=== PATIENT | female | born 1945 | race Caucasian/White ===

== ENCOUNTER 2018-09-16 12:08 | Inpatient (IN) | payer MEDICARE, BC ==
[2018-09-16] MEDS ORDERED: NS 0.9% 1000 ML** 1,000 ML IV ONE (12:38)
[2018-09-16] MEDS ORDERED: Ondansetron INJ* 2 MG/ML VIAL IV ONE (12:39)
--- NOTE | 2018-09-16 12:47 | ED ---
Adult Trauma - HPI Summary HPI Summary: This patient is a 72 year old F presenting to [facility] with a chief complaint of a fall since this morning. She hit her head on the bathtub. Patient reports dizziness. Patient denies LOC, CP, SOB, and abdominal pain. Patient has a PMHx of vertigo. - History of Current Complaint Chief Complaint: EDDizziness Stated Complaint: POSSIBLE STROKE Time Seen by Provider: 09/16/18 12:31 Hx Obtained From: Patient Mechanism of Injury: Fall Loss of Consciousness: no loss of consciousness Onset/Duration: Started Hours Ago Onset of Pain: Post Accident Pain Intensity: 0 Location: Head Associated Signs & Symptoms: Positive: Other: - Dizziness.. Negative: SOB, Chest Pain, Abdominal Pain, Loss of Consciousness - Allergy/Home Medications Allergies/Adverse Reactions: Allergies Allergy/AdvReac Type Severity Reaction Status Date / Time CHRIST Inhibitors Allergy Coughing Verified 09/16/18 12:57 clarithromycin [From Biaxin] Allergy Diarrhea Verified 09/16/18 12:57 morphine Allergy Hives Verified 09/16/18 12:57 naproxen [From Naprosyn] Allergy Diarrhea Verified 09/16/18 12:57 Penicillins Allergy Anaphylatic Verified 09/16/18 12:57 Shock Home Medications: Home Medications Albuterol HFA INHALER* [Ventolin HFA Inhaler*] 2 puff INH Q4H PRN 09/16/18 [ History Confirmed 09/16/18] Apixaban [Eliquis] 2.5 mg PO BID 09/16/18 [History Confirmed 09/16/18] Aspirin [Cruz Aspirin EC Low Dose 81 MG] 81 mg PO DAILY 09/16/18 [History Confirmed 09/16/18] Cholecalciferol (Vitamin D3) [Vitamin D3] 2,000 unit PO DAILY 09/16/18 [History Confirmed 09/16/18] Citalopram TAB* [CeleXA TAB*] 20 mg PO DAILY 09/16/18 [History Confirmed ] Cyanocobalamin INJ * [Vitamin B12 INJ *] 1,000 mcg IM MONTHLY 09/16/18 [History Confirmed 09/16/18] Donepezil TAB* [Aricept 5 MG TAB*] 10 mg PO DAILY 09/16/18 [History Confirmed ] Fluticasone-Salmeterol 250-50* [Advair Diskus 250-50*] 1 puff INH BID 09/16/18 [ History Confirmed 09/16/18] Insulin Glargine,Hum.rec.anlog [Lantus Solostar] 10 unit SQ BEDTIME 09/16/18 [ History Confirmed 09/16/18] Levothyroxine TAB* [Synthroid TAB*] 112 mcg PO 0800 09/16/18 [History Confirmed 09/16/18] Liraglutide (NF) [Victoza (NF)] 18 mg SUBCUT DAILY 09/16/18 [History Confirmed 09/16/18] Losartan Potassium 100 mg PO DAILY 09/16/18 [History Confirmed 09/16/18] Magnesium Oxide [Magnesium] 250 mg PO TID 09/16/18 [History Confirmed 09/16/18] Metformin ER (NF) [Glucophage ER 750 MG TAB (NF)] 750 mg PO BID 09/16/18 [ History Confirmed 09/16/18] NIFEdipine [Nifedipine ER] 60 mg PO DAILY 09/16/18 [History Confirmed 09/16/18] Niacin 500 mg PO DAILY 09/16/18 [History Confirmed 09/16/18] Omeprazole 20 mg PO BID 09/16/18 [History Confirmed 09/16/18] QUEtiapine TAB* [Seroquel 100 MG *] 100 mg PO BEDTIME 09/16/18 [History Confirmed 09/16/18] Travoprost Z 0.004% OPHTH (NF) [Travatan Z 0.004% OPTH (NF)] 1 drop BOTH EYES BEDTIME 09/16/18 [History Confirmed 09/16/18] Valacyclovir HCl [Valacyclovir] 500 mg PO EVERY OTHER DAY 09/16/18 [History Confirmed 09/16/18] glipiZIDE [Glipizide] 5 mg PO BID 09/16/18 [History Confirmed 09/16/18] prednisoLONE 1% OPHTH.SUSP* [Pred Forte 1%*] 1 drop BOTH EYES DAILY 09/16/18 [ History Confirmed 09/16/18] PMH/Surg Hx/FS Hx/Imm Hx Endocrine/Hematology History: Reports: Hx Diabetes Cardiovascular History: Denies: Hx Coronary Artery Disease GI History: Reports: Other GI Disorders - Hernia Neurological History: Reports: Other Neuro Impairments/Disorders - Stroke Infectious Disease History: No Infectious Disease History: Denies: Traveled Outside the [place] in Last 30 Days - Family History Known Family History: Positive: Hypertension, Diabetes, Other - Stroke - Social History Alcohol Use: Rare Substance Use Type: Reports: None Smoking Status (MU): Former Smoker Review of Systems Negative: Chest Pain Negative: Shortness Of Breath Negative: Abdominal Pain Neurological: Other - Dizziness. Denies LOC. All Other Systems Reviewed And Are Negative: Yes Physical Exam - Summary Physical Exam Summary: Appearance: Well appearing, no pain distress Skin: warm, dry, reflects adequate perfusion Head/face: normal Eyes: EOMI, LORRAINE ENT: normal Neck: supple, non-tender Respiratory: CTA, breath sounds present Cardiovascular: RRR, pulses symmetrical Abdomen: non-tender, soft Musculoskeletal: normal, Neuro: A&Ox3 Triage Information Reviewed: Yes Vital Signs On Initial Exam: Initial Vitals Temp Pulse Resp BP Pulse Ox 98.0 F 78 15 175/100 97 09/16/18 12:12 09/16/18 12:12 09/16/18 12:12 09/16/18 12:12 09/16/18 12:12 Vital Signs Reviewed: Yes Diagnostics - Vital Signs Vital Signs Temp Pulse Resp BP Pulse Ox 09/16/18 12:17 77 20 175/100 96 09/16/18 12:13 12 09/16/18 12:12 98.0 F 78 15 175/100 97 - Laboratory Result Diagrams: 09/16/18 12:46 09/16/18 12:46 Lab Statement: Any lab studies that have been ordered have been reviewed, and results considered in the medical decision making process. - Radiology Chest X-Ray Radiology Interpretation Completed By: Radiologist Summary of Radiographic Findings: 14:21. NO ACTIVE CARDIOPULMONARY DISEASE IS NOTED. ED Physician has reviewed this imaging report. - CT Cervical Spine CT CT Interpretation Completed By: Radiologist Summary of CT Findings: 13:44. No fracture is noted. Degenerative changes of the atlantoaxial joint, at C5-C6 and C6-C7 is noted. ED Physician has reviewed this imaging report. Brain CT CT Interpretation Completed By: Radiologist Summary of CT Findings: 13:41. Old lacunar infarct right basal ganglia. No intracranial mass or hemorrhage is noted. ED Physician has reviewed this imaging report. - EKG 12:55 Cardiac Rate: NL - 76 BPM EKG Rhythm: Sinus Rhythm Summary of EKG Findings: No acute changes. Adult Trauma Course/Dx - Diagnoses Differential Diagnosis/HQI/PQRI: Positive: Other - vertigo/dizziness/dehydration Provider Diagnoses: Dizziness - Physician Notifications Discussed Care Of Patient With: Moshe Ann - Hospitalist Time Discussed With Above Provider: 14:55 Instructed by Provider To: Admit As Inpatient Discharge - Sign-Out/Discharge Documenting (check all that apply): Patient Departure - Admit - Discharge Plan Condition: Stable Disposition: ADMITTED TO [facility] Referrals: Marisa Nash MD [Primary Care Provider] - - Billing Disposition and Condition Condition: STABLE Disposition: Admitted to [facility] - Attestation Statements Document Initiated by Scribe: Yes Documenting Scribe: Dash Mendosa Provider For Whom Scribe is Documenting (Include Credential): Reymundo Damon MD Scribe Attestation: Dash Mcgarry, scribed for Reymundo Damon MD on 09/16/18 at 1641. Scribe Documentation Reviewed: Yes Provider Attestation: The documentation as recorded by the Dash norwood accurately reflects the service I personally performed and the decisions made by Reymundo seaman MD Status of Scribe Document: Viewed
[2018-09-16 13:11] LABS: ABS Basophils 0.1 10^3/ul (0-0.2); ABS Eosinophils 0.4 10^3/ul (0-0.6); ABS Lymphocytes 2.5 10^3/ul (1.0-4.8); ABS Monocytes 0.6 10^3/ul (0-0.8); ABS Neutrophils 6.6 10^3/ul (1.5-7.7); ABS Nucleated RBC 0 10^3/ul; Eosinophil % 4.1 %; Hematocrit 40 % (35-47); Hemoglobin 13.1 g/dl (12.0-16.0); Lymphocyte % 24.9 %; Mean Corpuscular HGB Conc 33 g/dl (31-36); Mean Corpuscular Hemoglobin 29 pg (27-31); Mean Corpuscular Volume 88 fL (80-97); Mean Platelet Volume 8.5 fL (7.4-10.4); Nucleated Red Blood Cells % 0; Platelet Count 221 10^3/ul (150-450); Red Blood Count 4.58 10^6/ul (4.00-5.40); Red Cell Distribution Width 15 % (10.5-15); White Blood Count 10.2 10^3/ul (3.5-10.8)
[2018-09-16 13:12] LABS: Activated Partial Thrombo Time 39.3 seconds (26.0-36.3); INR 0.95 (0.77-1.02)
[2018-09-16 13:22] LABS: Albumin 4.2 g/dL (3.2-5.2); Albumin/Globulin Ratio 1.4 (1-3); Calcium 9.8 mg/dL (8.6-10.3); EGFR African American 66.1 (>60); EGFR Non-African American 54.7 (>60); Potassium 4.5 mmol/L (3.5-5.0); Total Bilirubin 0.4 mg/dL (0.2-1.0); Total Protein 7.2 g/dL (6.4-8.9)
[2018-09-16 13:23] LABS: Troponin I 0.01 ng/mL (<0.04)
[2018-09-16] MEDS ORDERED: Ondansetron INJ* 2 MG/ML VIAL IV PRN (16:29)
[2018-09-16] MEDS ORDERED: Aspirin 81 mg CHEW TAB* 81 MG TAB.CHEW PO ONE (16:29)
[2018-09-16] MEDS ORDERED: Dextrose 50% Syringe 50 ML* 25 GM/50 ML SYRINGE IV PUSH PRN (16:29)
[2018-09-16 16:40] LABS: Urine Appearance Clear; Urine Bacteria Absent (Absent); Urine Bilirubin Negative (Negative); Urine Blood 1+ (Negative); Urine Color Straw; Urine Glucose 1+(50 mg/dL) (Negative); Urine Ketones Negative (Negative); Urine Nitrite Negative (Negative); Urine Protein 2+(100 mg/dL) (Negative); Urine Red Blood Cell Trace(0-2/hpf) (Absent); Urine Specific Gravity 1.005 (1.010-1.030); Urine Squamous Epithelial Cell Present (Absent); Urine Urobilinogen Negative (Negative); Urine White Blood Cell Trace(0-5/hpf) (Absent)
[2018-09-16] MEDS ORDERED: Iodixanol* (CONTRAST) 320 MG/ML 100 ML SDV IV ONE (16:52)
[2018-09-16] MEDS ORDERED: Albuterol HFA INHALER* 8 gm MDI INH PRN (16:54)
[2018-09-16 19:43] LABS: Influenza A Molecular NEGATIVE (Negative); Influenza B Molecular NEGATIVE (Negative)
[2018-09-16] MEDS ORDERED: hydrALAZINE IV* 20 MG/ML VIAL IV SLOW PU PRN (20:14)
[2018-09-16] MEDS ORDERED: Apixaban* 2.5 MG TAB PO SCH (21:00)
--- NOTE | 2018-09-16 21:16 | HP ---
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 In addition, she has mild, less than 60%, stenosis of the proximal ICAs bilaterally, 2 mm nodular density in the left lung apex which is nonspecific. Once this CTA was resulted, Dr. Shabazz was updated. Dr. Shabazz discussed the case with telemedicine stroke team. It has been decided that the patient does not need transfer to high level of care. The patient will be admitted to [facility] for further observation. The patient will be on strict neuro checks q.2 hours to monitor for deterioration. The patient will not get her nighttime dose of Eliquis, but we will restart in the morning per Dr. Shabazz. Currently, the patient's neuro status is unchanged from previously. SUYAPA QUEZADA, NAVI [id number]/[facility] #: [id number] PAULINE
--- NOTE | 2018-09-16 21:25 | HP ---
ADDENDUM NOW INCLUDED ON THIS REPORT CC: Dr. Nash; Dr. Shabazz * HISTORY AND PHYSICAL: DATE OF ADMISSION: 09/16/18 PRIMARY CARE PROVIDER: Dr. Nash in [place], [place] with [facility]. OTHER PROVIDER: Dr. Shabazz, Neurology. ATTENDING PHYSICIAN: Dr. Ann * (dictated by Suyapa Quezada, CAUL DRESSER) CHIEF COMPLAINT: Dizziness. HISTORY OF PRESENT ILLNESS: Ms. Duran is a 72-year-old female with a past medical history significant for CVA, diabetes, sleep apnea, PE, DVT, hypertension; who presented to the emergency department today via EMS with complaints of dizziness. The patient reports she woke in the morning and was severely dizzy, was unable to get her bearings, had difficulty walking to the bathroom. Family made her to the bathroom and had a bowel movement, after which when she was attempting to clean herself, her dizziness caused her to lose her balance and fall and hit her head. The patient had no loss of consciousness. She remembers all events leading up to the fall and after. The patient reports after the fall she was lying on the floor and attempted to crawl to the bed. She reports this took her quite some time as she was severe dizzy, finally was able to get herself to the bed where she laid down and waited for her to come home. reports that when he came home, he found his lying in bed saying something was wrong and she needed help. She had to urinate, therefore, he helped her ambulate to the bathroom which she reports was very difficult as she was leaning to the right side and was very dizzy. The patient's then called EMS. She was brought here to the emergency room. While in the emergency room, the patient was evaluated by the ER physician, given Lefran as she was experiencing nausea and vomiting secondary to dizziness. She also received IV fluids in the form of normal saline, and a brain CT was obtained which revealed an old lacunar infarct at basal ganglia and no intracranial mass or hemorrhage noted. She also had a chest x-ray, which was unremarkable and a cervical spine CT due to trauma, which revealed no fracture noted, but did reveal degenerative changes of the atlantoaxial joint at C5 through C6 and C6 through C7. Due to the patient's persistent dizziness in conjunction with her history, the hospitalist team were asked to evaluate for admission. On evaluation of the patient, it was noted that the patient is significantly hypertensive occasionally with at times as high as 191/109. The patient reports she is severely dizzy and cannot identify any aggravating or any alleviating factors. This dizziness is also associated with nausea and vomiting as she vomited x1. The patient's neurological exam was also significant for left lateral gaze palsy, right arm drift, left leg drift. Otherwise, the patient's exam was unremarkable. She denied denies chest pain, palpitations, shortness of breath, abdominal pain, urinary symptoms, fever, chills. Due to neurological findings and the patient's history of CVA x2, diabetes, PE, DVT, hypertension, Dr. Shabazz was asked evaluate in consultation. Dr. Shabazz presented to the emergency room and a stat/code cespedes CTA of head and neck was ordered and we are awaiting results. Depending on results, the patient may be transferred or admitted inpatient status for observation. PAST MEDICAL HISTORY: 1. Diabetes. 2. CVA x2. 3. Obstructive sleep apnea with CPAP use. 4. PE and DVT, on lifelong anticoagulation. 5. Hypertension. 6. Depression. 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 PAST SURGICAL HISTORY: 1. Hysterectomy due to precancerous lesions. 2. Hernia. 3. Appendectomy. 4. Bilateral shoulder pinning. HOME MEDICATIONS: 1. Vitamin D3 2000 units p.o. daily. 2. Ventolin 2 puffs inhalation q.4 hours p.r.n. 3. Vitamin B12 injection 1000 mcg IM monthly. 4. Omeprazole 20 mg p.o. b.i.d. 5. Metformin 750 mg p.o. b.i.d. 6. Glipizide 2.5 mg daily. 7. Losartan 100 mg p.o. daily. 8. Eliquis 2.5 mg p.o. b.i.d. 9. Valacyclovir 500 mg p.o. every other day. 10. Nifedipine ER 60 mg p.o. daily. 11. Magnesium oxide 250 mg p.o. t.i.d. 13. Victoza 18 mg subcu daily. 14. Aricept 10 mg p.o. daily. 15. Niacin 500 mg p.o. daily. 16. Citalopram 20 mg p.o. daily. 17. Aspirin 81 mg p.o. daily. 18. Travoprost Z 0.004% 1 drop both eyes at bedtime. 19. Levothyroxine 100 mcg p.o. daily. 20. Prednisolone ophthalmic suspension 1 drop both eyes daily. 21. Seroquel 100 mg p.o. at bedtime. 22. Insulin glargine 12 units subcu at bedtime. ALLERGIES: CHRIST INHIBITOR, CLARITHROMYCIN, MORPHINE, NAPROXEN, PENICILLIN. FAMILY HISTORY: Mother in her 80s, who carried a history of diabetes and stroke. Dad at age 49, carried a history of COPD, heart failure and AAA. Sister carried a history of stroke and diabetes and at age 74. Brother at age 41 due to a brain aneurysm. SOCIAL HISTORY: The patient is a former smoker. She smoked approximately 20 years about a pack a week. The patient is a rare alcohol drinker. The patient denies drug use. The patient is retired. The patient lives at home with her and is independent in her ADLs. The patient's will be her surrogate decision maker in the event she is not able to make her own decisions. REVIEW OF SYSTEMS: A 14-point review of systems was performed and all pertinent positives and negatives are found in the HPI, all others are negative. PHYSICAL EXAMINATION GENERAL: Ms. Duran is a 72-year-old well-developed, well-nourished, slightly obese, elderly woman sitting in bed, in no acute distress. Appears her stated age. VITAL SIGNS: Temp 98.0, HR 99, RR 16, O2 saturation 96% on room air, BP 190/ 101. HEENT: Visual naranjo are grossly intact. Pupils are equal, round and reactive to light and accommodation. Left lateral gaze palsy noted, otherwise, extraocular movements are intact. Sclerae without icterus. Hearing is grossly intact. External ears and nose within normal limits. The patient is not wearing her dentures. Oral mucosa is moist without lesions. Tonsils without erythema or exudate. Pharynx is clear. NECK: Full range of motion. Trachea midline. No lymphadenopathy. RESPIRATORY: Symmetrical chest expansion. No accessory muscle use. Lungs clear to auscultation. No rhonchi, wheezes or rales. CARDIOVASCULAR: Regular rate and rhythm. S1/S2 present. No murmurs, rubs or gallops. No JVD. ABDOMEN: Soft, nontender to palpation. Bowel sounds x4. Her last BM today. EXTREMITIES: Skin is warm and smooth bilaterally. No edema. No clubbing or cyanosis. Pedal pulses 2+ bilaterally. MUSCULOSKELETAL: Full range of motion. No pain or deformities. NEUROLOGIC: She is awake, alert, and oriented x4. As previously mentioned, there is a left lateral gaze palsy noted. Other cranial nerves are intact. Moves all extremities. Noted to have a right upper and lower extremity drift 4/ 5. Skin: Grossly intact without lesions. DIAGNOSTIC STUDIES/LAB DATA: WBC 10.2, hemoglobin 13.1, hematocrit 40, platelets 221. Chemistry: Sodium 136, potassium 4.5, chloride 101, BUN 12, creatinine 1.00, glucose 179, lactic acid 2.6, troponin 0.01. ASSESSMENT AND PLAN: Ms. Duran is a 72-year-old female with the past medical history of diabetes, stroke, sleep apnea, hypertension, PE, DVT; who presented to the emergency department with complaint of dizziness and was found to have neurological deficits. She will be admitted for inpatient status. 1. Dizziness: As previously mentioned on our differential is CVA due to the patient's history of CVA x2 and her neurological findings. Initially, the patient was hesitant to get CTA of head and neck, as she was told to never have contrast by her physician. I personally placed a call to [facility]. He said that she has received contrast without difficulty and without reaction. The patient also reports she does remember getting contrast and not having any reaction including. But not limited to shortness of breath, wheezing, rash. I believe that the patient was told this due to previously elevated creatinine of 1.5 in her [facility] records, which were obtained. When discussed with the patient she agreed this as most likely the etiology of that advice. 2. Vertigo: Vertigo is low on our differential as there is no aggravating or alleviating symptoms. We will proceed with CTA of head and neck, which we are awaiting for the results. Depending on the results, the patient may be transferred, if not she will be admitted to a telemetry unit. She will have q.2 hour neuro checks. She will undergo an echo with bubble tomorrow. She received a full dose aspirin while in the emergency room. The patient also underwent a swallow study, which she passed and therefore received the aspirin orally. We will continue aspirin 81 mg daily. In addition, the patient will have a speech and swallow evaluation with Speech Therapy. We will also allow permissive hypertension, but we will treat elevated blood pressure with hydralazine. I have ordered fasting lipids to be drawn in the morning. 3. Diabetes: The patient is on glipizide, metformin, and Victoza at home which we will hold in the acute setting. The patient is also on Lantus at home , which we will also hold in the acute setting. The patient will be placed on a sliding scale lispro with fingersticks a.c. and h.s. The patient is currently n.p.o. due to awaiting test results, but when able to, we will advance to a consistent carb diet. In addition, I have ordered a hemoglobin A1c to be drawn in the morning. 4. Hypertension: The patient has a history of hypertension and is on losartan and nifedipine at home. We will hold these medications temporarily to allow permissive hypertension and treat elevated blood pressure with hydralazine. We will monitor her blood pressure routinely. 5. Obstructive sleep apnea. I have written order for patient to use her CPAP. If she cannot provide, then the hospital will provide her with one. 6. History of PE/DVT: The patient is on lifelong Eliquis at a renal dose of 2.5 p.o. daily. We will continue this as same unless events arise. Otherwise, it needs to be stopped. 7. FEN: The patient will be provided with consistent carb diet when she is no longer n.p.o. I will provide gentle fluid hydration after receiving the contrast. 8. Code status: The patient is a full code. 9. DVT prophylaxis: Based on the patient's DVT risk assessment, she is at highest risk. I will continue the patient's Eliquis unless otherwise indicated. TIME SPENT: Approximately 60 minutes was spent on this admission, greater than half of the time was spent [id number] with the patient and caregiver obtaining my history and performing my physical exam and reviewing my plan of care. This case was reviewed with my attending Dr. Ann who agreed with my plan. 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 In addition, she has mild, less than 60%, stenosis of the proximal ICAs bilaterally, 2 mm nodular density in the left lung apex which is nonspecific. Once this CTA was resulted, Dr. Shabazz was updated. Dr. Shabazz discussed the case with telemedicine stroke team. It has been decided that the patient does not need transfer to high level of care. The patient will be admitted to [facility] for further observation. The patient will be on strict neuro checks q.2 hours to monitor for deterioration. The patient will not get her nighttime dose of Eliquis, but we will restart in the morning per Dr. Shabazz. Currently, the patient's neuro status is unchanged from previously. SUYAPA QUEZADA NP [id number]/[facility] #: [id number]/[facility] #: [id number] PAULINE
[2018-09-16] MEDS: Latanoprost 0.005%* 2.5 ml BTL BOTH EYES SCH (21:46)
[2018-09-16] MEDS: Pantoprazole TAB * 40 MG TAB PO SCH (21:46)
[2018-09-16] MEDS: Insulin LISPRO* 1 UNITS UNIT SUBCUT SCH (21:49)
--- NOTE | 2018-09-16 22:05 | PN ---
Hospitalist Progress Note Date of Service: 09/16/18 Received call from RN that patient reports her right side of face feels numb, but otherwise neuro check unchanged. This database report writer reassessed patient and neuro checks are unchanged from admission. Sensation to right and left side of face equal. Patient able to differentiate between soft and sharp texture. Reviewed with my attending. No new orders at this time. Nurse to continue routine Q2 hr neuro checks.
--- NOTE | 2018-09-16 23:03 | CONS ---
CONSULTATION REPORT: DATE OF CONSULT: 09/16/18 PATIENT OF: Dr. Boss. HISTORY OF PRESENT ILLNESS: This is a 72-year-old left-handed woman who I am asked to evaluate for new onset of right-sided weakness with dizziness. She went to sleep at about 10 o'clock, and according to her and her , she was fine, and then yesterday, when she woke up, she was dizzy and that was the reason apparently that she fell. She has also had some right-sided weakness. Her stated complaint when she came in was possible stroke. She has had a past history of repeat concussions, recurrent headaches and has had stroke in the past including a subacute right basal ganglia stroke in 2014 and had some right leg weakness and trouble with balance at that point according to [place] MRI scan history. The patient is a little vague about the history and there is apparently some memory loss or dementia and the patient is on donepezil. She has a past history of vertigo. She has no recent visits at [facility] and has been seen for her neurological complaints down in [place] in both 2015 and 2014. She has a history of diabetes, hypothyroidism, depression, is being treated for dementia. She is on Eliquis because of a history of DVT and PE. She has hypertension. HOME MEDICATIONS: Include: 1. Advair 250/50 one b.i.d. 2. Vitamin D 2000 units daily. 3. Ventolin 2 puffs q.4 hours p.r.n. 4. B12 injections monthly. 5. Omeprazole 20 mg b.i.d. 6. Metformin 750 b.i.d. 7. Glipizide 5 mg b.i.d. 8. Losartan 100 mg daily. 9. Eliquis 2.5 daily. 10. Valacyclovir 500 every other day. 11. Nifedipine 60 every day. 12. Mag oxide 250 t.i.d. 13. Victoza 18 mg subcu daily. 14. Aricept 10 mg daily. 15. Niacin 500 daily. 16. Celexa 20 mg daily. 17. Aspirin 81 mg daily. 18. Synthroid 112 mcg daily. 19. Seroquel 100 mg at bedtime. 20. Insulin 10 units subcu at bedtime. ALLERGIES: She said that she is allergic to contrast dye, but currently she has tolerated contrast dye both on CT and MRA. In the past, to CT dye and the nurse practitioner confirmed this at [place] where she had this done, apparently this may have been related to an elevated creatinine that she has had in the past. Allergies include PENICILLIN, NAPROXEN, MORPHINE, BIAXIN, and CHRIST INHIBITORS. SOCIAL HISTORY: She does not smoke, drink, or use drugs. REVIEW OF SYSTEMS: She denies any headache, any change in speech. She says she walks independently at home. Review of systems negative in all 14 spheres, other than the HPI. PHYSICAL EXAM: Temperature is 98, pulse 89, respirations 17, blood pressure 190 /101. She is alert and oriented x3. She had normal speech and comprehension. 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 She had trace weakness on the right side in the arm, 4+/5 in the leg. She had pronator drift in the right arm and leg with some mild past-pointing and floppy dhaa-fs-ewig in the right leg. Left side showed intact strength and coordination. Reflexes were 3+ and equal. Toes were equivocal. Chest: Clear. Cardiovascular: Regular rate and rhythm. Abdomen was soft. Discs were sharp. DIAGNOSTIC STUDIES/LAB DATA: Her CT scan showed an old right lacunar ganglion infarct. Her past MRI, the one done in January 2015, showed a subacute right basal ganglia infarct with evidence of an old bleed in the region. There were some other small infarcts noted on MRI. She had in 2013 an MRA of the brain, which was reported normal and in 2015 had an MRI scan that showed volume loss and small lacunar infarcts. There was a small old infarct in the left cerebellar hemisphere that was new in 2016 compared to a January 2015 MRI scan. She had some mild atherosclerotic disease on carotid ultrasound in May 2016. I reviewed her CT scan done today myself. Labs include normal CBC, INR. PTT was 39. Chemistries were normal other than glucose 179, lactic 2.6, creatinine of 1. UA was negative. ASSESSMENT AND PLAN: Elizabeth has new symptoms suggestive of recurrent stroke. She is under the 24-hour window and therefore, she is a potential candidate for clot retrieval and we have ordered that cta as a Code [place] to move the process along. We needed to check first what the possibility of allergy to dye was, but we have cleared that and she is getting her CTA. If there is a significant occlusion, then she may need a clot retrieval and I have discussed with her and her family. If not, she will be admitted here for observation and to continue her current medicine. She will need an LDL in the morning and carotid Doppler. Thank you for sharing her case. [id number]/[facility] #: [id number] PAULINE
[2018-09-17] MEDS: Acetaminophen TAB* 325 MG PO PRN (01:40)
[2018-09-17] MEDS: Levothyroxine TAB* 100 MCG TAB PO SCH (05:36)
[2018-09-17 06:10] LABS: ABS Basophils 0.1 10^3/ul (0-0.2); ABS Eosinophils 0.4 10^3/ul (0-0.6); ABS Lymphocytes 2.9 10^3/ul (1.0-4.8); ABS Monocytes 0.7 10^3/ul (0-0.8); ABS Neutrophils 5.1 10^3/ul (1.5-7.7); ABS Nucleated RBC 0 10^3/ul; Eosinophil % 4.2 %; Hematocrit 37 % (35-47); Lymphocyte % 31.9 %; Mean Corpuscular HGB Conc 33 g/dl (31-36); Mean Corpuscular Hemoglobin 28 pg (27-31); Mean Corpuscular Volume 87 fL (80-97); Mean Platelet Volume 8.3 fL (7.4-10.4); Nucleated Red Blood Cells % 0; Platelet Count 209 10^3/ul (150-450); Red Blood Count 4.24 10^6/ul (4.00-5.40); Red Cell Distribution Width 14 % (10.5-15); White Blood Count 9.1 10^3/ul (3.5-10.8)
[2018-09-17 06:33] LABS: BUN/Creatinine Ratio 11.9 (8-20); Calcium 9.6 mg/dL (8.6-10.3); EGFR African American 59.9 (>60); EGFR Non-African American 49.5 (>60); HDL Cholesterol 34.2 mg/dL
[2018-09-17] MEDS: Insulin LISPRO* 1 UNITS UNIT SUBCUT SCH ×4 (08:14→21:39)
[2018-09-17] MEDS: Pantoprazole TAB * 40 MG TAB PO SCH ×2 (08:15→21:39)
[2018-09-17] MEDS: Donepezil TAB* 5 MG PO SCH (08:15)
[2018-09-17] MEDS: Citalopram TAB* 20 MG PO SCH (08:15)
[2018-09-17] MEDS: Apixaban* 2.5 MG TAB PO SCH ×2 (08:15→21:39)
[2018-09-17] MEDS: Aspirin EC TAB* 81 MG TAB.EC PO SCH (08:15)
[2018-09-17] MEDS: prednisoLONE 1% OPHTH.SUSP* 5 ML OPHTH.SUSP BOTH EYES SCH (08:18)
--- NOTE | 2018-09-17 16:31 | PN ---
Subjective Date of Service: 09/17/18 Interval History: Patient has persistent dizziness and unsteadiness on her feet which is worse with moving but present at rest. Patient has persistent weakness on her left side. Patient states she has a strange feeling on the right side of her face which has been fluctuating through the night. Patient denies CP, SOB, F/C, dysuria, abdominal pain, diarrhea, dysuria. Family History: Unchanged from Admission Social History: Unchanged from Admission Past Medical History: Unchanged from Admission Objective Active Medications: Acetaminophen (Tylenol Tab*) 650 mg PO Q4H PRN PRN Reason: FEVER/PAIN Last Admin: 09/17/18 01:40 Dose: 650 mg Albuterol (Ventolin Hfa Inhaler*) 2 puff INH Q4H PRN PRN Reason: SOB/WHEEZING Apixaban (Eliquis*) 2.5 mg PO BID [facility] Last Admin: 09/17/18 08:15 Dose: 2.5 mg Aspirin (Aspirin Ec Tab*) 81 mg PO DAILY [facility] Last Admin: 09/17/18 08:15 Dose: 81 mg Citalopram Hydrobromide (Celexa Tab*) 20 mg PO DAILY [facility] Last Admin: 09/17/18 08:15 Dose: 20 mg Dextrose (D50w Syringe 50 Ml*) 12.5 gm IV PUSH .FOR FS < 60 - SS PRN PRN Reason: FS < 60 Donepezil HCl (Aricept Tab*) 10 mg PO DAILY [facility] Last Admin: 09/17/18 08:15 Dose: 10 mg Insulin Human Lispro (Humalog*) 0 units SUBCUT ACHS [facility]; Protocol Last Admin: 09/17/18 12:44 Dose: 6 units Latanoprost (Xalatan 0.005%*) 1 drop BOTH EYES BEDTIME [facility]; Protocol Last Admin: 09/16/18 21:46 Dose: 1 drop Levothyroxine Sodium (Synthroid Tab*) 100 mcg PO 0600 [facility] Last Admin: 09/17/18 05:36 Dose: 100 mcg Ondansetron HCl (Zofran Inj*) 4 mg IV Q4H PRN PRN Reason: NAUSEA/VOMITING Pantoprazole Sodium (Protonix Tab*) 40 mg PO BID [facility] Last Admin: 09/17/18 08:15 Dose: 40 mg Pravastatin Sodium (Pravachol (Nf)) 20 mg PO 1700 [facility] Prednisolone Acetate (Pred Forte 1%*) 1 drop BOTH EYES DAILY [facility] Last Admin: 09/17/18 08:18 Dose: 1 units Valacyclovir HCl (Valtrex 500 Mg (*)) 500 mg PO EVERY OTHER DAY [facility]; Protocol Vital Signs - 8 hr 09/17/18 10:51 Temperature 98.2 F Pulse Rate 66 Respiratory 12 Rate Blood Pressure 179/66 (mmHg) O2 Sat by Pulse 96 Oximetry Oxygen Devices in Use Now: None Appearance: Patient is a 72yo female who appears stated age and is sitting in the bed in [facility]. Eyes: No Scleral Icterus, PERRLA Ears/Nose/Mouth/Throat: NL Teeth, Lips, Gums, Clear Oropharnyx, Mucous Membranes Moist Neck: NL Appearance and Movements; NL JVP, Trachea Midline Respiratory: Symmetrical Chest Expansion and Respiratory Effort, Clear to Auscultation Cardiovascular: NL Sounds; No Murmurs; No JVD, RRR, No Edema Abdominal: NL Sounds; No Tenderness; No Distention, No Hepatosplenomegaly Lymphatic: No Cervical Adenopathy Extremities: No Edema, No Clubbing, Cyanosis Skin: No Rash or Ulcers, No Nodules or Sclerosis Neurological: Alert and Oriented x 3, - - 4-/5 strength on Left side in UE and LE, 4+/5 on RUE and LUE. Decreased sensation to cold on lower left face. Preserved sensation to Sharp and Light touch. Dysmetria with left side. Negative Romberg, Normal gait. EOMI. Result Diagrams: 09/17/18 05:11 09/17/18 05:11 Microbiology and Other Data: Microbiology 09/16/18 16:15 Urine Culture - Final Urine 09/16/18 18:34 Influenza Types A,B Antigen - Final Nasal Specimen received for Influenza A/B Molecular testing Assess/Plan/Problems-Billing Assessment: Patient is a 72yo female with PMH for CVA, DM II, HLD, HTN, MARLINE, who is here with new onset vertigo and weakness on her left side. Patient had occlusion of FOAM TANK LAMINATOR and was not deemed to be a candidate for thrombectomy. Patient is improving. - Patient Problems (1) CVA (cerebral vascular accident) Current Visit: Yes Status: Acute Code(s): I63.9 - CEREBRAL INFARCTION, UNSPECIFIED SNOMED Code(s): 228474517 Comment: - New left sided weakness and vertigo - FOAM TANK LAMINATOR occlusion on CTA, not deemed a thrombectomy candidate - MRI and Echo pending - Continue ASA and Eliquis - Lipids off goal, unknown poor reaction to lipitor, will start Pravastatin - PT/OT - Appreciate Neurological Input. (2) HTN (hypertension) Current Visit: Yes Status: Acute Code(s): I10 - ESSENTIAL (PRIMARY) HYPERTENSION SNOMED Code(s): 79544024 Comment: - Moderately Hypertensive - Will begin treating to goal tomorrow - Hold Nifedipine (3) HLD (hyperlipidemia) Current Visit: Yes Status: Acute Code(s): E78.5 - HYPERLIPIDEMIA, UNSPECIFIED SNOMED Code(s): 76662671 Comment: - Start Pravastatin as above (4) DM II (diabetes mellitus, type II), controlled Current Visit: Yes Status: Acute Code(s): E11.9 - TYPE 2 DIABETES MELLITUS WITHOUT COMPLICATIONS SNOMED Code(s): 31158819 Comment: - A1c 7.2 - SSI insulin in hospital with good control - Resume home meds at D/C. (5) MARLINE (obstructive sleep apnea) Current Visit: Yes Status: Acute Code(s): G47.33 - OBSTRUCTIVE SLEEP APNEA ( ADULT) (PEDIATRIC) SNOMED Code(s): 53589503 Comment: - Continue Home PPV (6) History of pulmonary embolism Current Visit: Yes Status: Acute Code(s): Z86.711 - PERSONAL HISTORY OF PULMONARY EMBOLISM SNOMED Code(s): 229073865 Comment: - Unprovoked, on indefinite anticoagulation - Due to this, will not add Plavix. (7) DVT prophylaxis Current Visit: Yes Status: Acute Code(s): WBE3668 - SNOMED Code(s): 309241070 Comment: - Eliaylin (8) Full code status Current Visit: Yes Status: Acute Code(s): Z78.9 - OTHER SPECIFIED HEALTH STATUS SNOMED Code(s): 073677125 Status and Disposition: Inpatient for evaluation of CVA.
[2018-09-17] MEDS ORDERED: CMCS - Pravastatin (NF) 20 MG TAB PO SCH (17:00)
[2018-09-17] MEDS: CMCS - Pravastatin (NF) 20 MG TAB PO SCH (17:53)
[2018-09-17] MEDS: Latanoprost 0.005%* 2.5 ml BTL BOTH EYES SCH (21:39)
[2018-09-18] MEDS: Acetaminophen TAB* 325 MG PO PRN ×2 (00:05→21:08)
[2018-09-18] MEDS: Levothyroxine TAB* 100 MCG TAB PO SCH (05:36)
[2018-09-18 06:15] LABS: BUN/Creatinine Ratio 13.1 (8-20); Calcium 9.5 mg/dL (8.6-10.3); EGFR African American 52.6 (>60); EGFR Non-African American 43.4 (>60); Magnesium 1.7 mg/dL (1.9-2.7); Potassium 3.9 mmol/L (3.5-5.0)
[2018-09-18] MEDS ORDERED: LORazepam INJ* 2 MG/ML 1 ML VIAL IV PUSH ONE (08:00)
[2018-09-18] MEDS ORDERED: Magnesium Sulfate 2 GM IV* 2 GM/50 ML BAG IVPB ONE (08:54)
[2018-09-18] MEDS: NIFEdipine ER TAB* 60 MG PO SCH (09:02)
[2018-09-18] MEDS: ValACYclovir (*) 500 MG TAB PO SCH (09:03)
[2018-09-18] MEDS: Donepezil TAB* 5 MG PO SCH (09:03)
[2018-09-18] MEDS: Meclizine TAB* 12.5 MG PO SCH ×3 (09:04→21:07)
[2018-09-18] MEDS: Citalopram TAB* 20 MG PO SCH (09:04)
[2018-09-18] MEDS: Pantoprazole TAB * 40 MG TAB PO SCH ×2 (09:04→21:07)
[2018-09-18] MEDS: Aspirin EC TAB* 81 MG TAB.EC PO SCH (09:04)
[2018-09-18] MEDS: Insulin LISPRO* 1 UNITS UNIT SUBCUT SCH ×6 (09:05→21:06)
[2018-09-18] MEDS: Apixaban* 2.5 MG TAB PO SCH ×2 (09:05→21:07)
[2018-09-18] MEDS ORDERED: Perflutren Lipid Microsphere* 3 ML VIAL ONE (09:35)
[2018-09-18] MEDS: prednisoLONE 1% OPHTH.SUSP* 5 ML OPHTH.SUSP BOTH EYES SCH (10:08)
--- NOTE | 2018-09-18 10:33 | ECHO ---
Patient: VIVIEN RAY [facility] Rec#: [id number] : 1945 Date: 09/18/2018 Age: 72y Weight: kg / NaN lbs Sex: F Room#: 439 Admit Date#: 09/16/2018 Type: Inpatient Referring: Georgia Carias Reading: Alvaro Pereyra MD Canoe Inspector Final: Mary Jo Triana RDCS CC: Marisa Leone Transthoracic Echocardiogram Indication: TIA BP: 158/72 HR: 64 Rhythm: NSR with PACs Findings History: CVA,MARLINE with CPAP,DM,prior PE and DVT,HTN. Technical Comments: The study quality is fair. Completed at 1018. Left Ventricle: The left ventricular chamber size is normal. Global left ventricular wall motion and contractility are within normal limits. The estimated ejection fraction is 55-60%. There is no consistent Doppler evidence of clinically significant diastolic dysfunction. Left Atrium: The left atrial chamber size is normal. Right Ventricle: The right ventricular cavity size is normal. The right ventricular global systolic function is normal. Right Atrium: The right atrial cavity size is normal. There is no patent foramen ovale visualized. There is no evidence of patent foramen ovale shunting. A patent foramen ovale is not demonstrated with color Doppler and agitated contrast. Normal saline used as agitated contrast. Aortic Valve: The aortic valve is trileaflet. There is no evidence of aortic valve thickening. There is no evidence of aortic regurgitation. There is no evidence of aortic stenosis. Mitral Valve: The mitral valve leaflets are mildly thickened. There is no evidence of mitral regurgitation. There is no evidence of mitral stenosis. Tricuspid Valve: The tricuspid valve leaflets are normal. There is no evidence of tricuspid valve regurgitation. Unable to estimate the right ventricular systolic pressure. There is no tricuspid stenosis. Pulmonic Valve: The pulmonic valve appears normal in structure and function. There is no evidence of pulmonic regurgitation. There is no pulmonic stenosis. Pericardium: The pericardium appears normal. Aorta: The ascending aorta is not well visualized. There is no dilatation of the aortic arch. There is no dilation of the aortic root. Pulmonary Artery: The main pulmonary artery appears normal. Venous: The venous system is not well visualized. Contrast: Definity was used to optimize study. A total of 3 ml used. Intravenous contrast was used to enhance endocardial border definition. Summary: There was not any prior study for comparison. Conclusions Global left ventricular wall motion and contractility are within normal limits. The estimated ejection fraction is 55-60%. The right ventricular global systolic function is normal. A patent foramen ovale is not demonstrated with color Doppler and agitated contrast. Normal saline used as agitated contrast. There is no evidence of aortic stenosis. There is no evidence of mitral regurgitation. There is no evidence of tricuspid valve regurgitation. Unable to estimate the right ventricular systolic pressure. The pericardium appears normal. Measurements Name Value Normal Range RVIDd (AP) 2D 3 cm (0.9 - 2.6) RVDdMajor (2D) 3.3 cm (2.2 - 4.4) RAd ISD 4CH 4.5 cm (3.4 - 4.9) RA (A4C)W 3.4 cm (2.9 - 4.6) IVSd (2D) 1.1 cm (0.6 - 1) LVPWd (2D) 0.8 cm (0.6 - 1) LVIDd (2D) 4 cm (3.6 - 5.4) LVIDs (2D) 2.6 cm - LV FS (2D) 35 % (25 - 45) Aortic Annulus 1.9 cm (1.4 - 2.6) Ao root diameter (2D) 3.4 cm (2.1 - 3.5) Aortic arch 2.4 cm (1.8 - 3.4) Descending Ao 0.7 cm - LA dimension (AP) 2D 3.4 cm (2.3 - 3.8) LAd ISD 4CH 5.1 cm (2.9 - 5.3) LA ISD 4CH W 3.7 cm (2.5 - 4.5) Name Value Normal Range LA ESV SP 4CH (A/L) 24 ml - LA ESV SP 2CH (A/L) 19 ml - LA ESV BP (A/L) index 23 ml/m2 - Name Value Normal Range MV E-wave Vmax 0.8 m/sec - MV deceleration time 246 msec - MV A-wave Vmax 0.9 m/sec - MV E:A ratio 0.8 ratio - LV lateral e' Vmax 0.09 m/sec - LV E:e' lateral ratio 8.89 ratio - Name Value Normal Range AV Vmax 1.2 m/sec - AV VTI 29.8 cm - AV peak gradient 6 mmHg - AV mean gradient 3 mmHg - LVOT Vmax 0.9 m/sec - LVOT VTI 21.3 cm - LVOT peak gradient 3 mmHg - LVOT mean gradient 1 mmHg - Name Value Normal Range PV Vmax 0.9 m/sec - PV peak gradient 3 mmHg -
[2018-09-18] MEDS ORDERED: Dextrose 50% Syringe 50 ML* 25 GM/50 ML SYRINGE IV PUSH PRN (13:38)
--- NOTE | 2018-09-18 16:31 | PN ---
Subjective Date of Service: 09/18/18 Interval History: Patient reports decreased dizziness with movement and that it is no longer present at rest. Patient states she is able to ambulate with walker, but previously didn't need walker. Patient has persistent "strange feeling" on the right side of her face. Persistent weakness on right side. Intermittent nausea. has been having difficulty swallowing. Denies CP, SOB, F/C. Family History: Unchanged from Admission Social History: Unchanged from Admission Past Medical History: Unchanged from Admission Objective Active Medications: Acetaminophen (Tylenol Tab*) 650 mg PO Q4H PRN PRN Reason: FEVER/PAIN Last Admin: 09/18/18 00:05 Dose: 650 mg Albuterol (Ventolin Hfa Inhaler*) 2 puff INH Q4H PRN PRN Reason: SOB/WHEEZING Apixaban (Eliquis*) 2.5 mg PO BID [facility] Last Admin: 09/18/18 09:05 Dose: 2.5 mg Aspirin (Aspirin Ec Tab*) 81 mg PO DAILY [facility] Last Admin: 09/18/18 09:04 Dose: 81 mg Citalopram Hydrobromide (Celexa Tab*) 20 mg PO DAILY [facility] Last Admin: 09/18/18 09:04 Dose: 20 mg Dextrose (D50w Syringe 50 Ml*) 12.5 gm IV PUSH .FOR FS < 60 - SS PRN PRN Reason: FS < 60 Donepezil HCl (Aricept Tab*) 10 mg PO DAILY [facility] Last Admin: 09/18/18 09:03 Dose: 10 mg Insulin Human Lispro (Humalog*) 0 units SUBCUT ACHS [facility]; Protocol Last Admin: 09/18/18 13:16 Dose: 9 units Insulin Human Lispro (Humalog*) 3 units SUBCUT ACHS [facility] Latanoprost (Xalatan 0.005%*) 1 drop BOTH EYES BEDTIME [facility]; Protocol Last Admin: 09/17/18 21:39 Dose: 1 drop Levothyroxine Sodium (Synthroid Tab*) 100 mcg PO 0600 [facility] Last Admin: 09/18/18 05:36 Dose: 100 mcg Meclizine HCl (Antivert Tab*) 25 mg PO Q8HR [facility] Last Admin: 09/18/18 13:17 Dose: 25 mg Nifedipine (Procardia Xl Tab*) 60 mg PO DAILY [facility] Last Admin: 09/18/18 09:02 Dose: 60 mg Ondansetron HCl (Zofran Inj*) 4 mg IV Q4H PRN PRN Reason: NAUSEA/VOMITING Pantoprazole Sodium (Protonix Tab*) 40 mg PO BID [facility] Last Admin: 09/18/18 09:04 Dose: 40 mg Pravastatin Sodium (Pravachol (Nf)) 20 mg PO 1700 [facility] Last Admin: 09/17/18 17:53 Dose: 20 mg Prednisolone Acetate (Pred Forte 1%*) 1 drop BOTH EYES DAILY [facility] Last Admin: 09/18/18 10:08 Dose: 1 drop Valacyclovir HCl (Valtrex 500 Mg (*)) 500 mg PO EVERY OTHER DAY [facility]; Protocol Last Admin: 09/18/18 09:03 Dose: 500 mg Vital Signs - 8 hr 09/18/18 09/18/18 11:57 13:17 Respiratory 18 18 Rate Oxygen Devices in Use Now: None Appearance: Patient is a 72yo female who appears stated age and is sitting in the bed in [facility]. Eyes: No Scleral Icterus, PERRLA Ears/Nose/Mouth/Throat: NL Teeth, Lips, Gums, Clear Oropharnyx, Mucous Membranes Moist Neck: NL Appearance and Movements; NL JVP, Trachea Midline Respiratory: Symmetrical Chest Expansion and Respiratory Effort, Clear to Auscultation Cardiovascular: NL Sounds; No Murmurs; No JVD, RRR, No Edema Abdominal: NL Sounds; No Tenderness; No Distention, No Hepatosplenomegaly Lymphatic: No Cervical Adenopathy Extremities: No Edema, No Clubbing, Cyanosis Skin: No Rash or Ulcers, No Nodules or Sclerosis Neurological: Alert and Oriented x 3, - - Diminished sensation to cold on RIGHT side of face. Stable weakness on RIGHT side. Dysmetria with RIGHT hand. Result Diagrams: 09/17/18 05:11 09/18/18 05:28 Microbiology and Other Data: Microbiology 09/16/18 16:15 Urine Culture - Final Urine 09/16/18 18:34 Influenza Types A,B Antigen - Final Nasal Specimen received for Influenza A/B Molecular testing Assess/Plan/Problems-Billing Assessment: Patient is a 72yo female with PMH for CVA, DM II, HLD, HTN, MARLINE, who is here with new onset vertigo and weakness on her left side. Patient had occlusion of RESEARCH PHYSICIST and was not deemed to be a candidate for thrombectomy. Patient is improving. - Patient Problems (1) CVA (cerebral vascular accident) Current Visit: Yes Status: Acute Code(s): I63.9 - CEREBRAL INFARCTION, UNSPECIFIED SNOMED Code(s): 308895788 Comment: - Right sided weakness and vertigo - RESEARCH PHYSICIST occlusion on CTA, not deemed a thrombectomy candidate - MRI shows Medullary Stroke. Echo shows no PFO - Continue ASA and Eliquis - Lipids off goal, unknown poor reaction to lipitor, will start Pravastatin - PT/OT/ Speech, Will need VERA per OT. - Speech recommends [place] Thickened Liquids and Mechanical Ground texture. - Appreciate Neurological Input. (2) HTN (hypertension) Current Visit: Yes Status: Acute Code(s): I10 - ESSENTIAL (PRIMARY) HYPERTENSION SNOMED Code(s): 44381291 Comment: - Normotensive after reintroduction of Nifedipine. (3) HLD (hyperlipidemia) Current Visit: Yes Status: Acute Code(s): E78.5 - HYPERLIPIDEMIA, UNSPECIFIED SNOMED Code(s): 92535657 Comment: - Start Pravastatin as above (4) DM II (diabetes mellitus, type II), controlled Current Visit: Yes Status: Acute Code(s): E11.9 - TYPE 2 DIABETES MELLITUS WITHOUT COMPLICATIONS SNOMED Code(s): 05979098 Comment: - A1c 7.2 - SSI insulin in hospital with good control - Resume home meds at D/C. (5) MARLINE (obstructive sleep apnea) Current Visit: Yes Status: Acute Code(s): G47.33 - OBSTRUCTIVE SLEEP APNEA ( ADULT) (PEDIATRIC) SNOMED Code(s): 10176349 Comment: - Continue Home PPV (6) History of pulmonary embolism Current Visit: Yes Status: Acute Code(s): Z86.711 - PERSONAL HISTORY OF PULMONARY EMBOLISM SNOMED Code(s): 788771062 Comment: - Unprovoked, on indefinite anticoagulation - Due to this, will not add Plavix. (7) DVT prophylaxis Current Visit: Yes Status: Acute Code(s): KQS9415 - SNOMED Code(s): 191675153 Comment: - Eliquis (8) Full code status Current Visit: Yes Status: Acute Code(s): Z78.9 - OTHER SPECIFIED HEALTH STATUS SNOMED Code(s): 725722152 Status and Disposition: Inpatient for evaluation of CVA. Will likely need VERA at discharge.
[2018-09-18] MEDS: CMCS - Pravastatin (NF) 20 MG TAB PO SCH (17:01)
[2018-09-18] MEDS: Latanoprost 0.005%* 2.5 ml BTL BOTH EYES SCH (21:08)
[2018-09-19] MEDS: Meclizine TAB* 12.5 MG PO SCH ×3 (05:28→21:32)
[2018-09-19] MEDS: Levothyroxine TAB* 100 MCG TAB PO SCH (05:28)
[2018-09-19 06:16] LABS: BUN/Creatinine Ratio 13.5 (8-20); Calcium 9.6 mg/dL (8.6-10.3); EGFR African American 47.6 (>60); EGFR Non-African American 39.3 (>60); Potassium 4.2 mmol/L (3.5-5.0)
[2018-09-19] MEDS: Insulin LISPRO* 1 UNITS UNIT SUBCUT SCH ×8 (08:46→21:31)
[2018-09-19] MEDS: Aspirin EC TAB* 81 MG TAB.EC PO SCH (08:47)
[2018-09-19] MEDS: Donepezil TAB* 5 MG PO SCH (08:47)
[2018-09-19] MEDS: Apixaban* 2.5 MG TAB PO SCH ×2 (08:47→21:33)
[2018-09-19] MEDS: NIFEdipine ER TAB* 60 MG PO SCH (08:47)
[2018-09-19] MEDS: Citalopram TAB* 20 MG PO SCH (08:47)
[2018-09-19] MEDS: prednisoLONE 1% OPHTH.SUSP* 5 ML OPHTH.SUSP BOTH EYES SCH (08:47)
[2018-09-19] MEDS: Pantoprazole TAB * 40 MG TAB PO SCH ×2 (08:47→21:33)
--- NOTE | 2018-09-19 12:16 | PN ---
Subjective Date of Service: 09/19/18 Interval History: Patient reports she is better than admission reporting she feels a little stronger and her dizziness is a little better but still reports feeling weak more on right than left and still has dizziness with movement - reports now at rest the dizziness has resolved. She denies BARAJAS, vision changes. She reports her right cheek is still numb. She states she "hates the thickened liquid" and per nursing staff refusing to drink. Discussed with patient and it appears she is dehydrated as evidence of AARON and recorded low u/o and PO liquid intake. She agrees at this time to try to increase her fluid intake. She denies dysuria. No flank/low back pain. Denies fever or chills. She would like to go home but states she realizes she will need PT prior. Family History: Unchanged from Admission Social History: Unchanged from Admission Past Medical History: Unchanged from Admission Objective Active Medications: Acetaminophen (Tylenol Tab*) 650 mg PO Q4H PRN PRN Reason: FEVER/PAIN Last Admin: 09/18/18 21:08 Dose: 650 mg Albuterol (Ventolin Hfa Inhaler*) 2 puff INH Q4H PRN PRN Reason: SOB/WHEEZING Apixaban (Eliquis*) 2.5 mg PO BID [facility] Last Admin: 09/19/18 08:47 Dose: 2.5 mg Aspirin (Aspirin Ec Tab*) 81 mg PO DAILY [facility] Last Admin: 09/19/18 08:47 Dose: 81 mg Citalopram Hydrobromide (Celexa Tab*) 20 mg PO DAILY [facility] Last Admin: 09/19/18 08:47 Dose: 20 mg Dextrose (D50w Syringe 50 Ml*) 12.5 gm IV PUSH .FOR FS < 60 - SS PRN PRN Reason: FS < 60 Donepezil HCl (Aricept Tab*) 10 mg PO DAILY [facility] Last Admin: 09/19/18 08:47 Dose: 10 mg Insulin Human Lispro (Humalog*) 0 units SUBCUT ACHS [facility]; Protocol Last Admin: 09/19/18 11:40 Dose: 3 units Insulin Human Lispro (Humalog*) 3 units SUBCUT ACHS [facility] Last Admin: 09/19/18 11:41 Dose: 3 units Latanoprost (Xalatan 0.005%*) 1 drop BOTH EYES BEDTIME [facility]; Protocol Last Admin: 09/18/18 21:08 Dose: 1 drop Levothyroxine Sodium (Synthroid Tab*) 100 mcg PO 0600 [facility] Last Admin: 09/19/18 05:28 Dose: 100 mcg Meclizine HCl (Antivert Tab*) 25 mg PO Q8HR [facility] Last Admin: 09/19/18 05:28 Dose: 25 mg Nifedipine (Procardia Xl Tab*) 60 mg PO DAILY [facility] Last Admin: 09/19/18 08:47 Dose: 60 mg Ondansetron HCl (Zofran Inj*) 4 mg IV Q4H PRN PRN Reason: NAUSEA/VOMITING Pantoprazole Sodium (Protonix Tab*) 40 mg PO BID [facility] Last Admin: 09/19/18 08:47 Dose: 40 mg Pravastatin Sodium (Pravachol (Nf)) 20 mg PO 1700 [facility] Last Admin: 09/18/18 17:01 Dose: 20 mg Prednisolone Acetate (Pred Forte 1%*) 1 drop BOTH EYES DAILY [facility] Last Admin: 09/19/18 08:47 Dose: 1 drop Valacyclovir HCl (Valtrex 500 Mg (*)) 500 mg PO EVERY OTHER DAY [facility]; Protocol Last Admin: 09/18/18 09:03 Dose: 500 mg Vital Signs - 8 hr 09/19/18 09/19/18 08:00 08:12 Temperature 98.0 F Pulse Rate 62 Respiratory 18 17 Rate Blood Pressure 135/68 (mmHg) O2 Sat by Pulse 96 Oximetry Oxygen Devices in Use Now: None Appearance: elderly female A+Ox3 in NAD. Flat affect Eyes: No Scleral Icterus, PERRLA Ears/Nose/Mouth/Throat: NL Teeth, Lips, Gums, - - dry mm Respiratory: Symmetrical Chest Expansion and Respiratory Effort, Clear to Auscultation Cardiovascular: NL Sounds; No Murmurs; No JVD, RRR, No Edema Abdominal: NL Sounds; No Tenderness; No Distention Extremities: No Edema, No Clubbing, Cyanosis Skin: No Rash or Ulcers, No Nodules or Sclerosis Neurological: Alert and Oriented x 3, - - dried yeast supervisor fairlu equal; possible right wekaer than left. LE strength 5+ b/l Lines/Tubes/Other Access: Clean, Dry and Intact Peripheral IV Nutrition: Taking PO's Result Diagrams: 09/17/18 05:11 09/19/18 05:32 Microbiology and Other Data: Microbiology 09/16/18 16:15 Urine Culture - Final Urine 09/16/18 18:34 Influenza Types A,B Antigen - Final Nasal Specimen received for Influenza A/B Molecular testing Assess/Plan/Problems-Billing Assessment: Patient is a 72yo female with PMH for CVA, DM II, HLD, HTN, MARLINE, who is here with new onset vertigo and weakness on her left side. Patient had occlusion of SCREENER AND BLENDER and was not deemed to be a candidate for thrombectomy. Patient is improving. - Patient Problems (1) CVA (cerebral vascular accident) Comment: - Right sided weakness and vertigo (improving) - SCREENER AND BLENDER occlusion on CTA, not deemed a thrombectomy candidate - MRI shows Medullary Stroke. Echo shows no PFO - Continue ASA and Eliquis - Lipids off goal, unknown poor reaction to lipitor, Pravastatin started - PT/OT/ Speech, Will need VERA per OT - placed PMRU eval - Speech recommends [place] Thickened Liquids and Mechanical Ground texture. - Appreciate Neurological Input. (2) ARF (acute renal failure) Comment: creatinine trending up; suspect dehydration. Will send urine to calculate fena. Urine micro no growth on 09/16. it appears she has low po intake and low urine output,. also now on thickened fluids. Give 1 liter NS x 1 now; repeat BMP in am (3) DM II (diabetes mellitus, type II), controlled Comment: - A1c 7.2 - Lispro SS with meal time; add home lantus dose - Resume home meds at D/C. (4) HLD (hyperlipidemia) Comment: - Start Pravastatin as above (5) HTN (hypertension) Comment: - Normotensive after reintroduction of Nifedipine. (6) History of pulmonary embolism Comment: - Unprovoked, on indefinite anticoagulation (7) MARLINE (obstructive sleep apnea) Comment: - Continue Home PPV (8) DVT prophylaxis Comment: - Eliquis (9) Full code status Status and Disposition: Inpatient for evaluation of CVA. Will likely need VERA at discharge. PMRU eval placed
[2018-09-19] MEDS ORDERED: NS 0.9% 1000 ML** 1,000 ML IV SCH (12:30)
[2018-09-19] MEDS: CMCS - Pravastatin (NF) 20 MG TAB PO SCH (16:53)
[2018-09-19] MEDS ORDERED: Insulin GLARGINE(*) 1 UNITS UNIT SUBCUT SCH (21:00)
[2018-09-19] MEDS: Latanoprost 0.005%* 2.5 ml BTL BOTH EYES SCH (21:34)
--- NOTE | 2018-09-19 22:23 | PN ---
NEUROLOGICAL FOLLOWUP NOTE: DATE OF VISIT: 09/19/18 HISTORY: This is a neurological followup of this 72-year-old woman. She is feeling better, although still is slightly clumsy on the right side with slight weakness. She has done well with some minimal weakness in coordination on the right side, otherwise intact. MEDICATIONS: Include: 1. Eliquis. 2. Aspirin. 3. Aricept. 4. Celexa. 5. Synthroid. 6. Humalog. She has no new complaints. PHYSICAL EXAMINATION: Temperature 98.2, pulse 73, respirations 20, blood pressure 149/71. She is alert and oriented with normal speech and comprehension. She is playing cards when I saw her. She had trace weakness and pronator drift on the right and mild [id number] on the right side, unsteadiness on her feet. Chest: Clear. Cardiovascular: Regular rate and rhythm. Abdomen is soft with positive bowel sounds. DIAGNOSTIC STUDIES/LAB DATA: Her LDL was 113. She is on Pravachol. Her CTA showed 50% stenosis left ICA. She had a right TOLL LINE REPAIRER occlusion. I discussed this with [facility] this was done. They do not think any intervention was needed and I concurred with this. Her MRI scan was reviewed and showed a right pontine stroke and to my eye there may have been slight involvement in her right cerebellar lobe, which was perhaps minor extension from the pontine stroke. Her echo showed no PFO or source of clot. ASSESSMENT AND PLAN: Elizabeth has the right pontine and possibly cerebellar stroke with significant atherosclerotic disease. She is on both antiplatelet, anticoagulation which will be continued and she needs to have her LDL treated with a target of 70 or below. Thank you for sharing her case. [id number]/[facility] #: [id number] PAULINE
[2018-09-20] MEDS: Levothyroxine TAB* 100 MCG TAB PO SCH (05:33)
[2018-09-20] MEDS: Meclizine TAB* 12.5 MG PO SCH ×2 (05:34→12:24)
[2018-09-20 06:15] LABS: ABS Basophils 0.1 10^3/ul (0-0.2); ABS Eosinophils 0.4 10^3/ul (0-0.6); ABS Lymphocytes 3.4 10^3/ul (1.0-4.8); ABS Monocytes 0.6 10^3/ul (0-0.8); ABS Neutrophils 4.9 10^3/ul (1.5-7.7); ABS Nucleated RBC 0 10^3/ul; Eosinophil % 4.7 %; Hematocrit 37 % (35-47); Hemoglobin 12.2 g/dl (12.0-16.0); Lymphocyte % 36.2 %; Mean Corpuscular HGB Conc 33 g/dl (31-36); Mean Corpuscular Hemoglobin 29 pg (27-31); Mean Corpuscular Volume 87 fL (80-97); Mean Platelet Volume 8.3 fL (7.4-10.4); Nucleated Red Blood Cells % 0; Platelet Count 224 10^3/ul (150-450); Red Blood Count 4.21 10^6/ul (4.00-5.40); Red Cell Distribution Width 14 % (10.5-15); White Blood Count 9.5 10^3/ul (3.5-10.8)
[2018-09-20 06:27] LABS: BUN/Creatinine Ratio 15.1 (8-20); Calcium 9.2 mg/dL (8.6-10.3); EGFR African American 50.7 (>60); EGFR Non-African American 41.9 (>60); Potassium 4.1 mmol/L (3.5-5.0)
[2018-09-20] MEDS: Citalopram TAB* 20 MG PO SCH (09:00)
[2018-09-20] MEDS: NIFEdipine ER TAB* 60 MG PO SCH (09:00)
[2018-09-20] MEDS: Aspirin EC TAB* 81 MG TAB.EC PO SCH (09:01)
[2018-09-20] MEDS: Donepezil TAB* 5 MG PO SCH (09:01)
[2018-09-20] MEDS: Pantoprazole TAB * 40 MG TAB PO SCH (09:01)
[2018-09-20] MEDS: Apixaban* 2.5 MG TAB PO SCH (09:01)
[2018-09-20] MEDS: prednisoLONE 1% OPHTH.SUSP* 5 ML OPHTH.SUSP BOTH EYES SCH (09:02)
[2018-09-20] MEDS: ValACYclovir (*) 500 MG TAB PO SCH (09:02)
[2018-09-20] MEDS: Insulin LISPRO* 1 UNITS UNIT SUBCUT SCH ×4 (09:03→12:26)
[2018-09-20 09:57] LABS: Urine Creatinine Concentration 123.88 mg/dL
[2018-09-20 10:27] LABS: Urine Appearance Turbid; Urine Bacteria 1+ (Absent); Urine Bilirubin Negative (Negative); Urine Blood 2+ (Negative); Urine Color Amber; Urine Glucose 2+(150 mg/dL) (Negative); Urine Ketones Negative (Negative); Urine Nitrite Negative (Negative); Urine Protein 1+(30 mg/dL) (Negative); Urine Red Blood Cell 3+(>10/hpf) (Absent); Urine Specific Gravity 1.015 (1.010-1.030); Urine Squamous Epithelial Cell Present (Absent); Urine Urobilinogen Negative (Negative); Urine White Blood Cell 1+(6-10/hpf) (Absent)
--- NOTE | 2018-09-20 11:43 | DCNOTE ---
Subjective Date of Service: 09/20/18 Interval History: Pt reports she feels better today. She again states how much she dislikes the thickened liquids. It was discussed again with her that she needs to drink as she was dehydrated with evidence of AARON. She agrees to try. No urinary symptoms. Offers no complaints. Family History: Unchanged from Admission Social History: Unchanged from Admission Past Medical History: Unchanged from Admission Objective Active Medications: Acetaminophen (Tylenol Tab*) 650 mg PO Q4H PRN PRN Reason: FEVER/PAIN Last Admin: 09/18/18 21:08 Dose: 650 mg Albuterol (Ventolin Hfa Inhaler*) 2 puff INH Q4H PRN PRN Reason: SOB/WHEEZING Apixaban (Eliquis*) 2.5 mg PO BID [facility] Last Admin: 09/20/18 09:01 Dose: 2.5 mg Aspirin (Aspirin Ec Tab*) 81 mg PO DAILY [facility] Last Admin: 09/20/18 09:01 Dose: 81 mg Citalopram Hydrobromide (Celexa Tab*) 20 mg PO DAILY [facility] Last Admin: 09/20/18 09:00 Dose: 20 mg Dextrose (D50w Syringe 50 Ml*) 12.5 gm IV PUSH .FOR FS < 60 - SS PRN PRN Reason: FS < 60 Donepezil HCl (Aricept Tab*) 10 mg PO DAILY [facility] Last Admin: 09/20/18 09:01 Dose: 10 mg Insulin Glargine (Lantus(*)) 10 units SUBCUT Q24H [facility] Last Admin: 09/19/18 21:30 Dose: 10 units Insulin Human Lispro (Humalog*) 0 units SUBCUT ACHS [facility]; Protocol Last Admin: 09/20/18 09:03 Dose: 3 units Insulin Human Lispro (Humalog*) 3 units SUBCUT ACHS [facility] Last Admin: 09/20/18 09:03 Dose: 3 units Latanoprost (Xalatan 0.005%*) 1 drop BOTH EYES BEDTIME [facility]; Protocol Last Admin: 09/19/18 21:34 Dose: 1 drop Levothyroxine Sodium (Synthroid Tab*) 100 mcg PO 0600 [facility] Last Admin: 09/20/18 05:33 Dose: 100 mcg Meclizine HCl (Antivert Tab*) 25 mg PO Q8HR [facility] Last Admin: 09/20/18 05:34 Dose: 25 mg Nifedipine (Procardia Xl Tab*) 60 mg PO DAILY [facility] Last Admin: 09/20/18 09:00 Dose: 60 mg Ondansetron HCl (Zofran Inj*) 4 mg IV Q4H PRN PRN Reason: NAUSEA/VOMITING Pantoprazole Sodium (Protonix Tab*) 40 mg PO BID [facility] Last Admin: 09/20/18 09:01 Dose: 40 mg Pravastatin Sodium (Pravachol (Nf)) 20 mg PO 1700 [facility] Last Admin: 09/19/18 16:53 Dose: 20 mg Prednisolone Acetate (Pred Forte 1%*) 1 drop BOTH EYES DAILY [facility] Last Admin: 09/20/18 09:02 Dose: 1 drop Valacyclovir HCl (Valtrex 500 Mg (*)) 500 mg PO EVERY OTHER DAY [facility]; Protocol Last Admin: 09/20/18 09:02 Dose: 500 mg Vital Signs - 8 hr 09/20/18 09/20/18 08:00 08:03 Temperature 97.8 F Pulse Rate 64 Respiratory 19 20 Rate Blood Pressure 157/67 (mmHg) O2 Sat by Pulse 95 Oximetry Oxygen Devices in Use Now: None Appearance: alert and oreinted x3 in NAD - flat affect Eyes: No Scleral Icterus, PERRLA Ears/Nose/Mouth/Throat: NL Teeth, Lips, Gums, Mucous Membranes Moist Neck: NL Appearance and Movements; NL JVP Respiratory: Symmetrical Chest Expansion and Respiratory Effort, Clear to Auscultation Cardiovascular: NL Sounds; No Murmurs; No JVD, No Edema Abdominal: NL Sounds; No Tenderness; No Distention Extremities: No Edema, No Clubbing, Cyanosis Skin: No Rash or Ulcers, No Nodules or Sclerosis Neurological: Alert and Oriented x 3, NL Sensation, NL Gait, NL Muscle Strength and Tone Lines/Tubes/Other Access: Clean, Dry and Intact Peripheral IV Nutrition: Taking PO's Result Diagrams: 09/20/18 05:23 09/20/18 05:23 Microbiology and Other Data: Microbiology 09/16/18 16:15 Urine Culture - Final Urine 09/16/18 18:34 Influenza Types A,B Antigen - Final Nasal Specimen received for Influenza A/B Molecular testing Assess/Plan/Problems-Billing Assessment: Patient is a 72yo female with PMH for CVA, DM II, HLD, HTN, MARLINE, who is here with new onset vertigo and weakness on her left side. Patient had occlusion of WIRE HARNESS DESIGN ENGINEER and was not deemed to be a candidate for thrombectomy. Patient is improving. - Patient Problems (1) CVA (cerebral vascular accident) Comment: - Right sided weakness and vertigo (improving) - WIRE HARNESS DESIGN ENGINEER occlusion on CTA, not deemed a thrombectomy candidate - MRI shows Medullary Stroke. Echo shows no PFO - Continue ASA and Eliquis - Lipids off goal, unknown poor reaction to lipitor, Pravastatin started - PT/OT/ Speech, Plan for PMRU - Speech recommends [place] Thickened Liquids and Mechanical Ground texture. - Appreciate Neurological Input. (2) ARF (acute renal failure) Comment: creatinine trending down; suspect dehydration - FENA is prerenal. Pt is not liking the thickend fluids and needs to have a lot of encouragement to keep hydrated. Urine micro no growth on 09/16. Continue to push fluids. Do not have baseline creatinine. Recheck in 2-3 days. (3) DM II (diabetes mellitus, type II), controlled Comment: - A1c 7.2 - Lispro SS with meal time; add home lantus dose - Resume home meds at D/C. (4) HLD (hyperlipidemia) Comment: - Start Pravastatin as above (5) HTN (hypertension) Comment: - Normotensive after reintroduction of Nifedipine. (6) History of pulmonary embolism Comment: - Unprovoked, on indefinite anticoagulation (7) MARLINE (obstructive sleep apnea) Comment: - Continue Home PPV (8) DVT prophylaxis Comment: - Eliquis (9) Full code status Status and Disposition: Inpatient for evaluation of CVA. PMRU discharge
[2018-09-20 12:32] VITALS: BP 154/73
--- NOTE | 2018-09-20 14:45 | DS ---
CC: Dr. Marisa Nash * DISCHARGE SUMMARY: DATE OF ADMISSION: 09/16/18 DATE OF DISCHARGE: 09/20/18 PROVIDER: Tanika Mcleod NP. ATTENDING PHYSICIAN: Dr. Mukherjee * (report dictated by Tanika Mcleod NP). PRIMARY CARE PROVIDER: Dr. Marisa Nash. CONSULTING NEUROLOGIST: Dr. Shabazz. DISCHARGE DIAGNOSES: 1. Ischemic stroke: Right pontine and possibly cerebellar stroke. 2. Atherosclerotic disease. 3. Acute kidney injury secondary to dehydration. SECONDARY DIAGNOSES: 1. Hypertension. 2. Hyperlipidemia. 3. Obstructive sleep apnea. 4. History of pulmonary embolism, deep venous thrombosis, on lifelong Eliquis. 5. History of previous cerebrovascular accident x2. 6. Depression. 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 8. Cognitive decline. 9. Hypothyroidism. 10. Gastroesophageal reflux disease. 11. Vitamin B12 deficiency. 12. Vertigo. DISCHARGE MEDICATIONS: 1. Albuterol HFA inhaler 2 puffs INH q.4 hours p.r.n. shortness of breath, wheezing . 2. Eliquis 2.5 mg p.o. b.i.d. 3. Aspirin 81 mg p.o. daily. 4. Celexa 20 mg p.o. daily. 5. Aricept 10 mg p.o. daily. 6. Synthroid 100 mcg p.o. daily. 7. Nifedipine 60 mg p.o. daily. 8. Omeprazole 20 mg p.o. b.i.d. 9. Prednisolone 1% ophth solution 1 drop both eyes daily. 10. Travoprost Z 0.004% ophth 1 drop both eyes at bedtime. 11. Valacyclovir 500 mg p.o. every other day. 12. Vitamin D3 2000 units p.o. daily. 13. Vitamin B12 injection 1000 mcg IM monthly. 14. Glipizide 5 mg p.o. b.i.d. 15. Insulin glargine 10 units subcu at bedtime. 16. Victoza mg subcu daily. 17. Losartan 100 mg p.o. daily. 18. Magnesium oxide 250 mg p.o. t.i.d. 19. Niacin 500 mg p.o. daily. 20. Seroquel 100 mg p.o. at bedtime. Medication on hold: Metformin 750 mg p.o. b.i.d., please continue holding this medication while monitoring creatinine function due to recent AARON secondary to dehydration. HISTORY OF PRESENT ILLNESS AND HOSPITAL COURSE: Please see history and physical by Georgia Carias NP, for full admission details, but in summary, Ms. Duran is a 72-year-old female with a past medical history significant for CVA, diabetes, sleep apnea, PE/DVT, hypertension, who presented to the emergency department via EMS with complaints of dizziness, found to have a right pontine and possible cerebellar stroke. She was seen in consultation by neurologist, Dr. Shabazz, who followed the patient throughout her hospitalization. The patient complained of vertigo-like symptoms with spinning of the room initially at rest and with movement; however, this has improved at her hospitalization and now currently is not having vertigo at rest and occasionally with certain movements, she will have spinning of the room. She also reported a right cheek numbness, which has slightly improved throughout hospitalization, but is still present. She had initially an onset of right- sided weakness along with the dizziness, reporting more right upper extremity weakness with some mild right leg weakness and was having difficulty with her balance. However, this has improved throughout hospitalization. Please note, she also has a past medical history of vertigo in the past. She underwent a CTA , which showed 50% stenosis in the left ICA and was noted to have right GLOVE PAIRER occlusion. Dr. Shabazz discussed this with [facility] and there is no recommended intervention. Her MRI scan did show a right pontine stroke and possible involvement of the right cerebellar lobe, but could be possible this is minor extension from the pontine stroke. She underwent a transthoracic echo, which showed no PFO or source of clot. The patient initially presented with a lactic acid of 2.6. Her creatinine was noted to be 1.00 on admission. We have no other previous baseline creatinine from prior lab work in our hospital records. At this point, I am holding her metformin as her creatinine did climb over her hospitalization. I think this was secondary to dehydration as the patient has been placed on a thickened liquid diet per Speech Therapy and the patient has been having poor p.o. intake due to this. She reports at her baseline, she has poor p.o. intake, and however , she is struggling with drinking the thickened liquids. I did give her a liter of normal saline overnight last night and this did improve her renal function as well as FENa was calculated, which is showing prerenal. Again, I spoke to the patient as well as her about encouraging increased p.o. intake as well as I think the nursing staff in the rehab will have to encourage her to drink fluids. I recommend rechecking a creatinine in 2 to 3 days. Again as well, I have held her metformin due to her slightly elevated creatinine. In regards to her blood sugars, these have been fairly well controlled throughout hospitalization. Her hemoglobin A1c is 7.2. I do not have a previous to compare to. She was restarted on Lantus 10 units subcu at bedtime last night. Please note, her home dose is 12 units at bedtime. As well , she has been maintained on lispro sliding scale along with lispro with meals. Okay to restart her Victoza and glipizide on admission to rehab. I do recommend following her blood sugars a.c. and h.s. at this time to follow her trend. The patient has been started on pravastatin. She is noted to have high triglycerides of 304, cholesterol of 208, LDL of 113, and HDL of 34.2. The patient is stable for discharge to PMRU today. Again, please monitor her blood sugars a.c. and h.s. Please check creatinine in 2 to 3 days and encourage p.o. fluid intake. Again, metformin is being held at this time and will need to be reevaluated if this could be started or not. Please note, the patient had a negative urine culture, negative for influenza. DISCHARGE PLAN: Discharge to PMRU. Please see above. TIME SPENT: Approximately 60 minutes spent on this discharge. TANIKA MCLEOD, NAVI [id number]/[facility] #: [id number] PAULINE
== END 2018-09-20 13:40 | DRG 65 ==
LOC: ED 12:08 → MEDTELE 16:29
PROVIDERS: ADMIT Internal Medicine; ATTEND Internal Medicine
DX: I63.29 Cerebral infarction due to unspecified occlusion or stenosis of other precerebral arteries (principal); N17.9 Acute kidney failure, unspecified; G81.91 Hemiplegia, unspecified affecting right dominant side; I10 Essential (primary) hypertension; G47.33 Obstructive sleep apnea (adult) (pediatric); E11.9 Type 2 diabetes mellitus without complications; R42 Dizziness and giddiness; F03.90 Unspecified dementia, unspecified severity, without behavioral disturbance, psychotic disturbance, mood disturbance, and anxiety; E86.0 Dehydration; E78.5 Hyperlipidemia, unspecified; E53.8 Deficiency of other specified B group vitamins; F32.9 Major depressive disorder, single episode, unspecified; E66.9 Obesity, unspecified; Z86.73 Personal history of transient ischemic attack (TIA), and cerebral infarction without residual deficits; Z86.711 Personal history of pulmonary embolism; Z86.718 Personal history of other venous thrombosis and embolism; Z90.710 Acquired absence of both cervix and uterus; Z83.3 Family history of diabetes mellitus; Z82.3 Family history of stroke; Z82.5 Family history of asthma and other chronic lower respiratory diseases; Z82.49 Family history of ischemic heart disease and other diseases of the circulatory system; Z87.891 Personal history of nicotine dependence; Z72.89 Other problems related to lifestyle; Z68.35 Body mass index [BMI] 35.0-35.9, adult; Z88.1 Allergy status to other antibiotic agents; Z88.5 Allergy status to narcotic agent; Z88.0 Allergy status to penicillin; Z88.8 Allergy status to other drugs, medicaments and biological substances; Z79.01 Long term (current) use of anticoagulants; Z79.82 Long term (current) use of aspirin; Z79.52 Long term (current) use of systemic steroids; Z79.4 Long term (current) use of insulin
CPT/HCPCS: 36415; 70450; 70496; 70498; 70551; 71045; 72125; 80048; 80053; 80061; 81003; 81015; 82570; 82607; 83036; 83605; 83735; 84300; 84484; 85025; 85610; 85730; 87086; 93005; 93306; 94660; 99285; A9270-GY; C8929; G8978-GP-CK; G8979-GP-CI; G8987-GO-CL; G8988-GO-CI; J2060; J2405; J3475; Q9967

== ENCOUNTER 2018-09-20 07:21 | Inpatient (IN) | payer MEDICARE, BC ==
[2018-09-20] MEDS ORDERED: Dextrose 50% Syringe 50 ML* 25 GM/50 ML SYRINGE IV PUSH PRN (15:11)
[2018-09-20] MEDS ORDERED: Atorvastatin* 10 MG TAB PO SCH (17:00)
[2018-09-20] MEDS: Insulin LISPRO* 1 UNITS UNIT SUBCUT SCH ×3 (17:02→20:47)
[2018-09-20] MEDS: Apixaban* 2.5 MG TAB PO SCH (20:18)
[2018-09-20] MEDS: Meclizine TAB* 12.5 MG PO SCH (20:18)
[2018-09-20] MEDS: Latanoprost 0.005%* 2.5 ml BTL BOTH EYES SCH (20:19)
[2018-09-20] MEDS: Docusate CAP* 100 MG PO SCH (20:22)
--- NOTE | 2018-09-20 20:37 | HP ---
ADMISSION HISTORY AND PHYSICAL: DATE OF ADMISSION: 09/20/18 REASON FOR ADMISSION: Right pontine stroke. HISTORY OF PRESENT ILLNESS: Elizabeth Duran is a 72-year-old female. She has a medical history significant for diabetes as well as a history of early dementia. She has a history of having had a DVT and pulmonary embolism in the past. On 09/16/18, the patient tells me she was having trouble moving her legs. She woke up in the morning and was dizzy and had trouble getting to the bathroom. After she went to the bathroom, she was cleaning herself, but then lost her balance and hit her head. She was able to get to the bed and she waited for her to get home. When the returned home, he called 911. She was brought to the emergency room. She had a CAT scan of her brain which showed an old lacunar infarct, but nothing new. She also had a cervical spine CAT scan showing no new fractures. A code cespedes was ordered. The patient was seen by Dr. Shabazz. The patient had a CT angiogram. Angiogram showed less than 50% stenosis of the proximal ICAs bilaterally. Her right posterior cerebral artery appeared to be occluded on the CT angio, but she was not felt to be a candidate for thrombectomy. MRI of her brain was done 09/18/18 that showed a small area of infarct in her right medulla and annel. Dr. Shabazz felt that the patient should be treated with her Pravachol as well as Eliquis and aspirin. She did have an echo that did not show a PFO or source of a clot. The patient was felt to have physical therapy and occupational therapy needs. She is now being admitted for inpatient rehab so that she might return to independent living. PAST MEDICAL HISTORY: Significant for the aforementioned diabetes. She has a history of 2 previous strokes. She has had sleep apnea and uses CPAP; a history of DVT and pulmonary embolus, is normally anticoagulated; hypertension; depression. CURRENT MEDICATIONS: Include: 1. Eliquis. 2. She is on aspirin. 3. Celexa. 4. Aricept. 5. Lantus insulin. 6. Lispro. 7. Synthroid. 8. Meclizine. 9. Procardia XL. 10. Protonix. 11. Pravachol. 12. Valtrex. ALLERGIES: CHRIST INHIBITORS, CLARITHROMYCIN, MORPHINE, NAPROSYN, and PENICILLIN. SOCIAL HISTORY: The patient lives with her . She is a nonsmoker. She does not drink alcohol. She lives in a one-story house. She is retired and she is a former smoker. REVIEW OF SYSTEMS: The patient reports no current shortness of breath or chest pain. PHYSICAL EXAMINATION VITAL SIGNS: The patient's temperature is 98.1, blood pressure is 135/68, pulse is 64, respirations 20. HEENT: Her extraocular movements are intact. Tongue is midline. NECK: Supple. LUNGS: Sound clear to auscultation bilaterally. HEART: Sounds are regular. S1 and S2 are audible. ABDOMEN: Soft and nontender. EXTREMITIES: Showed normal muscle bulk and tone. Peripheral pulses were intact. NEUROLOGIC: Sensation was intact. [id number] testing was appropriate. She had mild right-sided weakness in both her arm and her leg. Her arm is a little more affected than her leg. The patient did report some numbness on the right side of her face. FUNCTIONAL EXAM: She is able to ambulate with contact-guard a short distance, at least 5 steps. Transfer is a contact-guard. ASSESSMENT: Right pontine cerebrovascular accident. PLAN: Integrate her into a comprehensive and therapeutic rehab program with the following goals: 1. Physical Therapy will see the patient. They are going to work on functional transfer training, ambulation training with a walker. 2. Occupational Therapy will see the patient, work on her activities of daily living including toileting and toilet transfers. 3. Continue Eliquis and aspirin for secondary stroke prevention. 4. Eliquis for DVT prophylaxis. 5. For her diabetes mellitus, we are going to continue her on Lantus and lispro insulin. We are going to consider restarting her metformin as well as her glipizide. 6. For lipid control, we are going to continue her on Pravachol. 7. We will continue Antivert for now but may taper it off. 8. For her hypothyroidism, continue Synthroid. 9. For memory problems, continue Aricept. 10. Speech Therapy will evaluate the patient to see if she has any speech therapy needs. 11. Family training as appropriate. 12. [facility] will be closely involved to make sure that any services and equipment that the patient requires are in place prior to discharge. ESTIMATED LENGTH OF STAY: 10 to 14 days. [id number]/[facility] #: [id number] [facility]
[2018-09-20] MEDS: Insulin GLARGINE(*) 1 UNITS UNIT SUBCUT SCH (20:46)
[2018-09-21] MEDS: Levothyroxine TAB* 100 MCG TAB PO SCH (06:37)
[2018-09-21] MEDS: Meclizine TAB* 12.5 MG PO SCH ×3 (06:38→20:12)
[2018-09-21] MEDS: Insulin LISPRO* 1 UNITS UNIT SUBCUT SCH ×7 (08:21→21:03)
[2018-09-21] MEDS: Aspirin EC TAB* 81 MG TAB.EC PO SCH (08:23)
[2018-09-21] MEDS: Docusate CAP* 100 MG PO SCH ×2 (08:23→20:15)
[2018-09-21] MEDS: Citalopram TAB* 20 MG PO SCH (08:23)
[2018-09-21] MEDS: Apixaban* 2.5 MG TAB PO SCH ×4 (08:23→20:12)
[2018-09-21] MEDS: NIFEdipine ER TAB* 60 MG PO SCH (08:23)
[2018-09-21] MEDS: Donepezil TAB* 5 MG PO SCH (08:23)
[2018-09-21] MEDS: Pantoprazole TAB * 40 MG TAB PO SCH (08:23)
[2018-09-21] MEDS: prednisoLONE 1% OPHTH.SUSP* 5 ML OPHTH.SUSP BOTH EYES SCH (13:36)
[2018-09-21] MEDS: Acetaminophen TAB* 325 MG PO PRN (16:01)
[2018-09-21] MEDS: CMCS: Pravastatin (NF) 20 MG TAB PO SCH (17:23)
--- NOTE | 2018-09-21 17:44 | PN ---
Progress Note Date of Service: 09/21/18 Note: VIVIEN RAY was visited. Therapy notes read and reviewed. She had a good day in therapy. Evaluated by OPTICIAN APPRENTICE and she can be on reg diet and thin liquids. Current Medications: Active Medications Generic Name Dose Route Start Last Admin Trade Name Freq PRN Reason Stop Dose Admin Acetaminophen 650 mg 09/20/18 15:03 09/21/18 16:01 Tylenol Tab* PO 650 mg Q6H PRN Administration FEVER/HEADACHE Apixaban 2.5 mg 09/21/18 21:00 Eliquis* PO BID DEBBIE Aspirin 81 mg 09/21/18 09:00 09/21/18 08:23 Aspirin Ec Tab* PO 81 mg DAILY DEBBIE Administration Citalopram Hydrobromide 20 mg 09/21/18 09:00 09/21/18 08:23 Celexa Tab* PO 20 mg DAILY DEBBIE Administration Dextrose 12.5 gm 09/20/18 15:11 D50w Syringe 50 Ml* IV PUSH .FOR FS < 60 - SS PRN FS < 60 Docusate Sodium 100 mg 09/20/18 21:00 09/21/18 08:23 Colace Cap* PO 100 mg BID DEBBIE Administration Donepezil HCl 10 mg 09/21/18 09:00 09/21/18 08:23 Aricept Tab* PO 10 mg DAILY DEBBIE Administration Insulin Glargine 10 units 09/20/18 21:00 09/20/18 20:46 Lantus(*) SUBCUT 10 units 2100 DEBBIE Administration Insulin Human Lispro 0 - 15 units 09/20/18 16:30 09/21/18 17:28 Humalog* SUBCUT 9 units ACHS DEBBIE Administration Protocol Insulin Human Lispro 3 units 09/20/18 16:30 09/21/18 17:28 Humalog* SUBCUT 3 units AC DEBBIE Administration Latanoprost 1 drop 09/20/18 21:00 09/20/18 20:19 Xalatan 0.005%* BOTH EYES 1 drop 2100 DEBBIE Administration Levothyroxine Sodium 100 mcg 09/21/18 06:00 09/21/18 06:37 Synthroid Tab* PO 100 mcg DAILY@0600 DEBBIE Administration Meclizine HCl 12.5 mg 09/20/18 22:00 09/21/18 14:21 Antivert Tab* PO 12.5 mg Q8HR DEBBIE Administration Nifedipine 60 mg 09/21/18 09:00 09/21/18 08:23 Procardia Xl Tab* PO 60 mg DAILY DEBBIE Administration Pantoprazole Sodium 40 mg 09/21/18 09:00 09/21/18 08:23 Protonix Tab* PO 40 mg DAILY DEBBIE Administration Pravastatin Sodium 20 mg 09/21/18 17:00 09/21/18 17:23 Pravachol (Nf) PO 20 mg 1700 DEBBIE Administration Prednisolone Acetate 1 drop 09/21/18 09:00 09/21/18 13:36 Pred Forte 1%* BOTH EYES Not Given DAILY DEBBIE Senna 2 tab 09/20/18 15:10 Senokot Tab* PO BEDTIME PRN CONSTIPATION Valacyclovir HCl 500 mg 09/22/18 09:00 Valtrex 500 Mg (*) PO Q48H [facility] Protocol Vital Signs: Vital Signs Temp Pulse Resp BP Pulse Ox 98.0 F 65 16 144/62 97 09/21/18 15:55 09/21/18 15:55 09/21/18 15:55 09/21/18 15:55 09/21/18 15:55 Lab Results: Laboratory Results - last 24 hr 09/20/18 09/21/18 09/21/18 20:24 08:01 12:14 POC Glucose (mg/dL) 221 H 219 H 297 H 09/21/18 16:31 POC Glucose (mg/dL) 280 H Exam: HEENT: EOMI LUNGS: CLear HEART: reg rhythm ABDOMEN: SOft, +BS EXTREMITIES: No edema NEUROLOGIC: No facial droop. Some facial numbness. Right arm 4/5 right leg 4/5. Assessment/Plan: 1. Right Pontine/medullary CVA: PT/OT/OPTICIAN APPRENTICE. ASA/Eliquis/Pravachol 2. Diabetes: For now, Lantus/Lispro. Will check labs in am and restart oral meds 3. History of PE: Eliquis 4. Sleep Apnea: CPAP 5. HTN: Procardia 6. Dementia: Aricept 7. DVT Prophylaxis: Eliquis 8. Advanced Directives: Full Code 09/21/18 17:49
[2018-09-21] MEDS: Latanoprost 0.005%* 2.5 ml BTL BOTH EYES SCH (20:15)
[2018-09-21] MEDS: Insulin GLARGINE(*) 1 UNITS UNIT SUBCUT SCH (21:02)
[2018-09-22] MEDS: Levothyroxine TAB* 100 MCG TAB PO SCH (06:03)
[2018-09-22] MEDS: Meclizine TAB* 12.5 MG PO SCH ×3 (06:03→21:02)
[2018-09-22 06:16] LABS: ABS Basophils 0.1 10^3/ul (0-0.2); ABS Eosinophils 0.4 10^3/ul (0-0.6); ABS Lymphocytes 2.8 10^3/ul (1.0-4.8); ABS Monocytes 0.6 10^3/ul (0-0.8); ABS Neutrophils 4.2 10^3/ul (1.5-7.7); ABS Nucleated RBC 0 10^3/ul; Hematocrit 36 % (35-47); Lymphocyte % 34.3 %; Mean Corpuscular HGB Conc 34 g/dl (31-36); Mean Corpuscular Hemoglobin 29 pg (27-31); Mean Corpuscular Volume 87 fL (80-97); Mean Platelet Volume 8.1 fL (7.4-10.4); Nucleated Red Blood Cells % 0; Platelet Count 198 10^3/ul (150-450); Red Blood Count 4.14 10^6/ul (4.00-5.40); Red Cell Distribution Width 14 % (10.5-15); White Blood Count 8.1 10^3/ul (3.5-10.8)
[2018-09-22 06:32] LABS: Albumin 3.4 g/dL (3.2-5.2); Albumin/Globulin Ratio 1.3 (1-3); BUN/Creatinine Ratio 14.2 (8-20); Calcium 9.3 mg/dL (8.6-10.3); EGFR African American 53.6 (>60); EGFR Non-African American 44.3 (>60); Globulin 2.7 g/dL (2-4); Potassium 4.5 mmol/L (3.5-5.0); Total Bilirubin 0.4 mg/dL (0.2-1.0); Total Protein 6.1 g/dL (6.4-8.9)
[2018-09-22] MEDS: Docusate CAP* 100 MG PO SCH ×2 (08:03→20:12)
[2018-09-22] MEDS: Aspirin EC TAB* 81 MG TAB.EC PO SCH (08:03)
[2018-09-22] MEDS: Pantoprazole TAB * 40 MG TAB PO SCH (08:03)
[2018-09-22] MEDS: Citalopram TAB* 20 MG PO SCH (08:04)
[2018-09-22] MEDS: Apixaban* 2.5 MG TAB PO SCH ×2 (08:04→20:12)
[2018-09-22] MEDS: Donepezil TAB* 5 MG PO SCH (08:05)
[2018-09-22] MEDS: ValACYclovir (*) 500 MG TAB PO SCH (08:06)
[2018-09-22] MEDS: NIFEdipine ER TAB* 60 MG PO SCH (08:06)
[2018-09-22] MEDS: Insulin LISPRO* 1 UNITS UNIT SUBCUT SCH ×7 (08:07→20:47)
[2018-09-22] MEDS: prednisoLONE 1% OPHTH.SUSP* 5 ML OPHTH.SUSP BOTH EYES SCH (08:09)
--- NOTE | 2018-09-22 09:11 | PN ---
Progress Note Date of Service: 09/22/18 Note: VIVIEN RAY was visited. Nursing and therapy notes read and reviewed. No chest pain, shortness of breath or abdominal pain. Voiding well. She notes her FS seem pretty high. At home her AM FS was sometimes in the 70's. Current Medications: Active Medications Generic Name Dose Route Start Last Admin Trade Name Freq PRN Reason Stop Dose Admin Acetaminophen 650 mg 09/20/18 15:03 09/21/18 16:01 Tylenol Tab* PO 650 mg Q6H PRN Administration FEVER/HEADACHE Apixaban 2.5 mg 09/21/18 21:00 09/22/18 08:04 Eliquis* PO 2.5 mg BID DEBBIE Administration Aspirin 81 mg 09/21/18 09:00 09/22/18 08:03 Aspirin Ec Tab* PO 81 mg DAILY DEBBIE Administration Citalopram Hydrobromide 20 mg 09/21/18 09:00 09/22/18 08:04 Celexa Tab* PO 20 mg DAILY DEBBIE Administration Dextrose 12.5 gm 09/20/18 15:11 D50w Syringe 50 Ml* IV PUSH .FOR FS < 60 - SS PRN FS < 60 Docusate Sodium 100 mg 09/20/18 21:00 09/22/18 08:03 Colace Cap* PO Not Given BID DEBBIE Donepezil HCl 10 mg 09/21/18 09:00 09/22/18 08:05 Aricept Tab* PO 10 mg DAILY DEBBIE Administration Insulin Glargine 10 units 09/20/18 21:00 09/21/18 21:02 Lantus(*) SUBCUT 10 units 2100 DEBBIE Administration Insulin Human Lispro 0 - 15 units 09/20/18 16:30 09/22/18 08:07 Humalog* SUBCUT 6 units ACHS DEBBIE Administration Protocol Insulin Human Lispro 3 units 09/20/18 16:30 09/22/18 08:08 Humalog* SUBCUT 3 units AC DEBBIE Administration Latanoprost 1 drop 09/20/18 21:00 09/21/18 20:15 Xalatan 0.005%* BOTH EYES 1 drop 2100 DEBBIE Administration Levothyroxine Sodium 100 mcg 09/21/18 06:00 09/22/18 06:03 Synthroid Tab* PO 100 mcg DAILY@0600 DEBBIE Administration Meclizine HCl 12.5 mg 09/20/18 22:00 09/22/18 06:03 Antivert Tab* PO 12.5 mg Q8HR DEBBIE Administration Nifedipine 60 mg 09/21/18 09:00 09/22/18 08:06 Procardia Xl Tab* PO 60 mg DAILY DEBBIE Administration Pantoprazole Sodium 40 mg 09/21/18 09:00 09/22/18 08:03 Protonix Tab* PO 40 mg DAILY DEBBIE Administration Pravastatin Sodium 20 mg 09/21/18 17:00 09/21/18 17:23 Pravachol (Nf) PO 20 mg 1700 DEBBIE Administration Prednisolone Acetate 1 drop 09/21/18 09:00 09/22/18 08:09 Pred Forte 1%* BOTH EYES 1 drop DAILY DEBBIE Administration Senna 2 tab 09/20/18 15:10 Senokot Tab* PO BEDTIME PRN CONSTIPATION Valacyclovir HCl 500 mg 09/22/18 09:00 09/22/18 08:06 Valtrex 500 Mg (*) PO 500 mg Q48H DEBBIE Administration Protocol Vital Signs: Vital Signs Temp Pulse Resp BP Pulse Ox 98.0 F 59 18 152/71 97 09/22/18 06:14 09/22/18 06:14 09/22/18 06:14 09/22/18 06:14 09/22/18 06:14 Lab Results: Laboratory Results - last 24 hr 09/21/18 09/21/18 09/21/18 12:14 16:31 20:16 WBC RBC Hgb Hct MCV MCH MCHC RDW Plt Count MPV Neut % (Auto) Lymph % (Auto) Calvert % (Auto) Eos % (Auto) Baso % (Auto) Absolute Neuts (auto) Absolute Lymphs (auto) Absolute Monos (auto) Absolute Eos (auto) Absolute Basos (auto) Absolute Nucleated RBC Nucleated RBC % Sodium Potassium Chloride Carbon Dioxide Anion Gap BUN Creatinine Est GFR ( Amer) Est GFR (Non-Af Amer) BUN/Creatinine Ratio Glucose POC Glucose (mg/dL) 297 H 280 H 359 H Calcium Total Bilirubin AST ALT Alkaline Phosphatase Total Protein Albumin Globulin Albumin/Globulin Ratio 09/22/18 09/22/18 06:10 06:10 WBC 8.1 RBC 4.14 Hgb 12.0 Hct 36 MCV 87 MCH 29 MCHC 34 RDW 14 Plt Count 198 MPV 8.1 Neut % (Auto) 52.4 Lymph % (Auto) 34.3 Calvert % (Auto) 7.2 Eos % (Auto) 5.0 Baso % (Auto) 1.1 Absolute Neuts (auto) 4.2 Absolute Lymphs (auto) 2.8 Absolute Monos (auto) 0.6 Absolute Eos (auto) 0.4 Absolute Basos (auto) 0.1 Absolute Nucleated RBC 0 Nucleated RBC % 0 Sodium 136 Potassium 4.5 Chloride 101 Carbon Dioxide 29 Anion Gap 6 BUN 17 Creatinine 1.20 H Est GFR ( Amer) 53.6 Est GFR (Non-Af Amer) 44.3 BUN/Creatinine Ratio 14.2 Glucose 200 H POC Glucose (mg/dL) Calcium 9.3 Total Bilirubin 0.40 AST 18 ALT 17 Alkaline Phosphatase 67 Total Protein 6.1 L Albumin 3.4 Globulin 2.7 Albumin/Globulin Ratio 1.3 Exam: GEN: no acute distress. Alert and appropriate. Able to tell me her home meds for diabetes as written in acute care H&P. LUNGS: clear to auscultation bilaterally. HEART: regular rate and rhythm ABDOMEN: Soft, +BS, non-tender, non-distended EXTREMITIES: No edema NEUROLOGIC: CN II-XII intact. Some facial numbness. Right upper and lower extremity motor arm 4+/5 throughout. Sensation otherwise intact. Assessment/Plan: 1. 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 ASA/Eliquis/Pravachol 2. Diabetes: Home meds were metformin 750mg bid, glipizide 2.5mg qday, victoza 1.8mg subcut Qpm, and glargine 12u subcut qhs. Her Cr is a bit elevated, so I am hesitant to restart metformin yet. Will add back in glipizide 2.5mg qam and increase lantus. I will see if her can bring in victoza. 3. History of PE: Eliquis 4. Sleep Apnea: CPAP 5. HTN: Procardia 6. Dementia: Aricept 7. DVT Prophylaxis: Eliquis 8. Advanced Directives: Full Code 9. Estimated LOS: [facility] today. 09/22/18 09:06
[2018-09-22] MEDS: glipiZIDE TAB.XL* 2.5 MG PO SCH (12:05)
--- NOTE | 2018-09-22 12:09 | PMRUTEAM ---
PMRU: Team Meeting Current Status: Nursing: Current Status Skin Deviations [none] Other Skin Deviation Description [ none none] Physical Therapy: Current Status Bed Mobility Assistance Supervision Transfer Mobility Assistance Contact Guard Assist Transfer/Bed Mobility Rolling Walker Recommended Devices Ambulation Assistance Contact Guard Assist Ambulation Assistive Devices Rolling Walker Number of Feet Patient 120 Ambulated Stairs Assistance Contact Guard Assist Stairs Recommended Devices Two Rails Number of Stairs 5 Occupational Therapy: Current Status Upper Body Dressing Supervision Lower Body Dressing Min Assist Bathing Supervision,Contact Guard Assist Toileting Supervision,Contact Guard Assist Toilet Transfer Supervision,Contact Guard Assist Shower Transfer Contact Guard Assist Eating Independent *Have speech follow up swallowing. Rec Therapy: Current Status Summary of Assessment and Pt. was open to conversation - cooperative, Clinical Impression appropriate and engaged. Pt. identified with numerous interests and active involvement in them prior to admission. Pt. was interested in leisure activities while on the unit. Treatment Goals Pt. will engage in leisure activities while on the unit. Treatment Plan Provide RT services and encourage involvement. Social Work: Current Status Discharge Plan return home with home care svs and family support Potential for Family Training pt's is attentive and involved Anticipated Discharge Home Destination Discharge With home care svs and family support Goals: Physical Therapy: Initial Goals Bed Mobility Assistance Independent Transfer Mobility Assistance Independent Transfer/Bed Mobility Rolling Walker Recommended Devices Ambulation Independent Ambulation Recommended Devices Rolling Walker Ambulation Distance 150 Stairs Assistance Independent Stair Recommended Devices Two Rails Number of Stairs 5 Home Exercise Program Independent Assistance Occupational Therapy: Initial Goals Goals to be Completed in (Days 7 ) Upper Body Bathing Routine Independent Lower Body Bathing Routine Modified Independent with Upper Body Dressing Routine Independent Lower Body Dressing Routine Modified Independent except min A with socks Toilet Hygeine and Clothing Modified Independent with Management Routine Toilet Transfer Routine Modified Independent with Step-In Shower Transfer Supervision/Set Up Routine Functional Transfers for ADL Modified Independent with Grooming Routine Independent Feeding Routine Independent Light Housekeeping Tasks Minimal Contact Assist Speech: Goals Speech Goal 1 Swallow Goal 1 Comments Patient passed BIMS 15/15, >12, MOCA and cognitive -communication assessments are not indicated. Clinical swallow evaluation recommended Regular consistency with extra sauces and gravies, and Thin liquids with no straws. Pills may be taken whole with water. Social Work: Goals Discharge Plan return home with home care svs and family support Potential for Family Training pt's is attentive and involved Anticipated Discharge Home Destination Discharge With home care svs and family support Care Plan: Care Plan ADL's - Improve/Maintain Start: 09/20/18 14:25 Freq: DAILY Status: Active Target: Protocol: Activity Type Activity Date Activity User E-Sign Co-Sign Detail Recorded Client Recorded Date Recorded By Document 09/21/18 14:23 [id number] 09/21/18 14:23 [id number] 09/21/18 14:23 PMRU Outcome: ADL's/ADL Transfers Orders/Interventions Occupational Therapy Evaluation & Treatment Communication Tool in Patient Room Patient to receive OT 5x/wk for 60-120 Therex min/day Self Care Management Group Therapy Neuromuscular ReEducation UE/LE ADL's with Assist Yes: mod I ADL Transfers with Assist Yes: mod I Toileting: Transfers,Clothing Management Yes: mod I ,Hygeine w/Assist Light Kitchen/Laundry w/Assist Yes: mod I Progression Toward Outcome/Goals Progressing Outcome/Goals Met Pt demonstrates impaired RUE ( compared to LUE ) coordination/ motor planning when completing 9 hole peg test. This is consistent with PT noting R- sided deficits througthout sessions. Pt's balance seems slightly improved this afternoon with no LOB. Pt endurance improved from yesterday given ability to be up in the chair all day and participate in 3 hours of therapy. Cardiovascular- Improve/Maintain Start: 09/20/18 23:35 Freq: QSHIFT Status: Active Target: Protocol: Activity Type Activity Date Activity User E-Sign Co-Sign Detail Recorded Client Recorded Date Recorded By Document 09/22/18 08:00 [id number] 09/22/18 09:02 [id number] 09/22/18 08:00 PMRU Outcome: Cardiovascular Vital Signs q Shift for 48hrs Then BID Yes Daily Weight Ordered No Current Cardiovascular Outcome/Goal Maintain/ Achieve Baseline HR, BP , Perfusion Maintain/ Improve Perfusion Free of Abnormal Cardiac Symptoms Progression Toward Outcome/Goal Progressing Coping/Psych-Improve/Maintain Start: 09/20/18 23:35 Freq: QSHIFT Status: Active Target: Protocol: Activity Type Activity Date Activity User E-Sign Co-Sign Detail Recorded Client Recorded Date Recorded By Document 09/22/18 08:00 [id number] 09/22/18 09:02 [id number] 09/22/18 08:00 PMRU Outcome: Coping/Psychosocial Coping Outcome/Goals Verbalization of Acceptance of Rehab Admit Utilization of Appropriate Problem Solving Techniques Absence of Destructive Behavior to Self/Others Psychosocial Outcome/Goals Maintain/ Improve Emotional Health Cooperate/ Participate in Plan Progression Toward Outcome/Goals - Progressing Coping Progression Toward Outcome/Goals - Progressing Psychosocial Discharge Planning - Improve/Maintain Start: 09/20/18 23:35 Freq: DAILY Status: Active Target: Protocol: Activity Type Activity Date Activity User E-Sign Co-Sign Detail Recorded Client Recorded Date Recorded By Document 09/22/18 00:00 [id number] 09/22/18 00:14 [id number] 09/22/18 00:00 PMRU Outcome: Discharge Planning Update Patient Family No Outcome/Goals Demonstrates Understanding of Discharge Plan Education-Improve/Maintain Start: 09/20/18 23:35 Freq: QSHIFT Status: Active Target: Protocol: Activity Type Activity Date Activity User E-Sign Co-Sign Detail Recorded Client Recorded Date Recorded By Document 09/22/18 08:00 [id number] [email or web address] 09/22/18 09:02 [id number] 09/22/18 08:00 PMRU Outcome: Education Outcome/Goals Demonstrate/ Verbalize Understanding of Written Discharge Instructions Demonstrates Skills Encourage Questions Progression Toward Outcome/Goals Progressing Metabolic Status- Improve/Maintain Start: 09/20/18 23:35 Freq: QSHIFT Status: Active Target: Protocol: Activity Type Activity Date Activity User E-Sign Co-Sign Detail Recorded Client Recorded Date Recorded By Document 09/22/18 08:00 [id number] [email or web address] 09/22/18 09:02 [id number] 09/22/18 08:00 PMRU Outcome: Metabolic Status Have Fingersticks Been Ordered Yes Fingerstick Order Frequency AC & HS Outcome/Goals Maintain/ Improve Metabolic Status Demonstrate Knowledge of Prevention/ Treatment of Metabolic Imbalances Progression Toward Outcome/Goals Progressing Mobility- Improve/Maintain Start: 09/22/18 08:39 Freq: DAILY Status: Active Target: Protocol: Activity Type Activity Date Activity User E-Sign Co-Sign Detail Recorded Client Recorded Date Recorded By Document 09/22/18 08:39 [id number] 09/22/18 08:41 [id number] 09/22/18 08:39 PMRU Outcome: Mobility Physical Therapy Evaluation and Yes Treatment Activity OOB with Assistance Yes Device Yes: FWW Assistance Yes: CGA-Min A Patient to be seen 5x/wk for 60-120 min/ Therex day for: Mobility Training Gait Training Balance Outcome/Goals Maintain/ Achieve Baseline Mobility Status Improve Mobility Status Demonstrates Proper Use of Assistive Devices Free from Complications of Immobility Bed Mobility Yes: Ind Transfers Yes: Mod I Gait x ft Yes: Mod I x150ft Up/Down Stairs Yes: Ind x 5 steps, 2 rails With HEP Yes Neurological- Improve/Maintain Start: 09/20/18 23:35 Freq: QSHIFT Status: Active Target: Protocol: Activity Type Activity Date Activity User E-Sign Co-Sign Detail Recorded Client Recorded Date Recorded By Document 09/22/18 08:00 [id number] 09/22/18 09:02 [id number] 09/22/18 08:00 PMRU Outcome: Neurological Weakness/Aphasia Weakness Left Side Weakness/Aphasia Comment mild left sided weakness Outcome/Goals Maintain/ Achieve Baseline Neurological Status Improve Neurological Status Prevent Avoidable Neurological Decline Maintain/ Improve Strength/ROM Progression Toward Outcome/Goals Progressing Safety- Improve/Maintain Start: 09/20/18 23:35 Freq: QSHIFT Status: Active Target: Protocol: Activity Type Activity Date Activity User E-Sign Co-Sign Detail Recorded Client Recorded Date Recorded By Document 09/22/18 08:00 [id number] 09/22/18 09:02 [id number] 09/22/18 08:00 PMRU Outcome: Safety Outcome/Goals Remain Free of Injury or Harm Cooperates with Safety Measures for Least Restrictive Environment Prevent Falls/ Injury Progression Toward Outcome/Goals Progressing Outcome/Goals Met Comment BA and PA Medicine Note: Length of Stay: [6 more days] Anticipated Discharge Destination: Home Tentative Discharge Date: [09/28/18] Discharged to: [home]
[2018-09-22] MEDS: CMCS: Pravastatin (NF) 20 MG TAB PO SCH (17:08)
[2018-09-22] MEDS: Latanoprost 0.005%* 2.5 ml BTL BOTH EYES SCH (20:12)
[2018-09-22] MEDS: Insulin GLARGINE(*) 1 UNITS UNIT SUBCUT SCH (20:48)
[2018-09-23] MEDS: Levothyroxine TAB* 100 MCG TAB PO SCH (06:14)
[2018-09-23] MEDS: Meclizine TAB* 12.5 MG PO SCH ×3 (06:14→21:06)
[2018-09-23] MEDS: Pantoprazole TAB * 40 MG TAB PO SCH (09:09)
[2018-09-23] MEDS: Citalopram TAB* 20 MG PO SCH (09:09)
[2018-09-23] MEDS: Apixaban* 2.5 MG TAB PO SCH ×2 (09:09→20:08)
[2018-09-23] MEDS: NIFEdipine ER TAB* 60 MG PO SCH (09:09)
[2018-09-23] MEDS: glipiZIDE TAB.XL* 2.5 MG PO SCH (09:09)
[2018-09-23] MEDS: Aspirin EC TAB* 81 MG TAB.EC PO SCH (09:09)
[2018-09-23] MEDS: Docusate CAP* 100 MG PO SCH ×2 (09:09→20:08)
[2018-09-23] MEDS: Insulin LISPRO* 1 UNITS UNIT SUBCUT SCH ×5 (09:14→20:13)
--- NOTE | 2018-09-23 09:14 | PN ---
Progress Note Date of Service: 09/23/18 Note: VIVIEN RAY was visited. Nursing and therapy notes read and reviewed. No chest pain, shortness of breath or abdominal pain. Seen by speech yesterday after staff reported a lot of coughing. She wants to know if she can chew gum. brought in victoza yesterday, but not needles. Will bring needles today. Current Medications: Active Medications Generic Name Dose Route Start Last Admin Trade Name Freq PRN Reason Stop Dose Admin Acetaminophen 650 mg 09/20/18 15:03 09/21/18 16:01 Tylenol Tab* PO 650 mg Q6H PRN Administration FEVER/HEADACHE Apixaban 2.5 mg 09/21/18 21:00 09/22/18 20:12 Eliquis* PO 2.5 mg BID DEBBIE Administration Aspirin 81 mg 09/21/18 09:00 09/22/18 08:03 Aspirin Ec Tab* PO 81 mg DAILY DEBBIE Administration Citalopram Hydrobromide 20 mg 09/21/18 09:00 09/22/18 08:04 Celexa Tab* PO 20 mg DAILY DEBBIE Administration Dextrose 12.5 gm 09/20/18 15:11 D50w Syringe 50 Ml* IV PUSH .FOR FS < 60 - SS PRN FS < 60 Docusate Sodium 100 mg 09/20/18 21:00 09/22/18 20:12 Colace Cap* PO 100 mg BID DEBBIE Administration Donepezil HCl 10 mg 09/21/18 09:00 09/22/18 08:05 Aricept Tab* PO 10 mg DAILY DEBBIE Administration Glipizide 2.5 mg 09/22/18 10:00 09/22/18 12:05 Glucotrol Xl* PO 2.5 mg DAILY DEBBIE Administration Insulin Glargine 12 units 09/22/18 21:00 09/22/18 20:48 Lantus(*) SUBCUT 12 units 2100 DEBBIE Administration Insulin Human Lispro 0 - 15 units 09/20/18 16:30 09/22/18 20:47 Humalog* SUBCUT 9 units ACHS DEBBIE Administration Protocol Insulin Human Lispro 3 units 09/20/18 16:30 09/22/18 17:08 Humalog* SUBCUT 3 units AC DEBBIE Administration Latanoprost 1 drop 09/20/18 21:00 09/22/18 20:12 Xalatan 0.005%* BOTH EYES 1 drop 2100 DEBBIE Administration Levothyroxine Sodium 100 mcg 09/21/18 06:00 09/23/18 06:14 Synthroid Tab* PO 100 mcg DAILY@0600 DEBBIE Administration Meclizine HCl 12.5 mg 09/20/18 22:00 09/23/18 06:14 Antivert Tab* PO 12.5 mg Q8HR DEBBIE Administration Nifedipine 60 mg 09/21/18 09:00 09/22/18 08:06 Procardia Xl Tab* PO 60 mg DAILY DEBBIE Administration Pantoprazole Sodium 40 mg 09/21/18 09:00 09/22/18 08:03 Protonix Tab* PO 40 mg DAILY DEBBIE Administration Pravastatin Sodium 20 mg 09/21/18 17:00 09/22/18 17:08 Pravachol (Nf) PO 20 mg 1700 DEBBIE Administration Prednisolone Acetate 1 drop 09/21/18 09:00 09/22/18 08:09 Pred Forte 1%* BOTH EYES 1 drop DAILY DEBBIE Administration Senna 2 tab 09/20/18 15:10 Senokot Tab* PO BEDTIME PRN CONSTIPATION Valacyclovir HCl 500 mg 09/22/18 09:00 09/22/18 08:06 Valtrex 500 Mg (*) PO 500 mg Q48H DEBBIE Administration Protocol Vital Signs: Vital Signs Temp Pulse Resp BP Pulse Ox 98.3 F 62 18 141/69 98 09/23/18 06:19 09/23/18 06:19 09/23/18 06:19 09/23/18 06:19 09/23/18 06:19 Lab Results: Laboratory Results - last 24 hr 09/22/18 09/22/18 09/22/18 07:26 11:39 16:35 POC Glucose (mg/dL) 206 H 243 H 239 H 09/22/18 09/23/18 20:10 07:34 POC Glucose (mg/dL) 266 H 196 H Exam: GEN: no acute distress. Alert and appropriate. LUNGS: clear to auscultation bilaterally. HEART: regular rate and rhythm ABDOMEN: Soft, +BS, non-tender, non-distended EXTREMITIES: No edema NEUROLOGIC: CN II-XII intact. Some facial numbness. Right upper and lower extremity motor arm 4+/5 throughout. Sensation otherwise intact. Assessment/Plan: 1. 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 ASA/Eliquis/Pravachol 2. Diabetes: Home meds were metformin 750mg bid, glipizide 2.5mg qday, victoza 1.8mg subcut Qpm, and glargine 12u subcut qhs. Her Cr is a bit elevated, so I am hesitant to restart metformin yet. Will add back in victoza 1.8mg tonight and continue glipizide 2.5mg qam and lantus 12u QHS. 3. History of PE: Eliquis 4. Sleep Apnea: CPAP 5. HTN: Procardia 6. Dementia: Aricept 7. DVT Prophylaxis: Eliquis 8. Advanced Directives: Full Code 9. Dysphagia/Coughing: on regular consistency consistent carbohydrate diet with extra sauces and gravies. Thin liquids ok with no straw, small sips with chin tuck and pause between sips. Pills in applesauce. I told her she can try to chew gum that is sugar free, but if she coughs with saliva should spit it out. Videofluoro swallow study ordered for this week per speech recommendation. 10. Estimated LOS: 09/28/18 09/23/18 09:10
[2018-09-23] MEDS: prednisoLONE 1% OPHTH.SUSP* 5 ML OPHTH.SUSP BOTH EYES SCH (09:15)
[2018-09-23] MEDS: Donepezil TAB* 5 MG PO SCH (09:22)
[2018-09-23] MEDS ORDERED: Cyanocobalamin INJ * 1,000 MCG/ML VIAL 1 ML VIAL IM ONE (10:00)
[2018-09-23] MEDS: Acetaminophen TAB* 325 MG PO PRN ×2 (10:50→22:30)
[2018-09-23] MEDS: CMCS: Pravastatin (NF) 20 MG TAB PO SCH (17:24)
[2018-09-23] MEDS: Latanoprost 0.005%* 2.5 ml BTL BOTH EYES SCH (20:10)
[2018-09-23] MEDS: Insulin GLARGINE(*) 1 UNITS UNIT SUBCUT SCH (20:12)
[2018-09-23] MEDS: PTO - Liraglutide (NF) 18 MG/3 ML SUBCUT SCH (20:14)
[2018-09-24] MEDS: Levothyroxine TAB* 100 MCG TAB PO SCH (06:25)
[2018-09-24] MEDS: Meclizine TAB* 12.5 MG PO SCH ×3 (06:25→21:02)
[2018-09-24] MEDS: Insulin LISPRO* 1 UNITS UNIT SUBCUT SCH ×4 (07:35→21:08)
[2018-09-24] MEDS: Aspirin EC TAB* 81 MG TAB.EC PO SCH (08:08)
[2018-09-24] MEDS: Pantoprazole TAB * 40 MG TAB PO SCH (08:08)
[2018-09-24] MEDS: NIFEdipine ER TAB* 60 MG PO SCH (08:08)
[2018-09-24] MEDS: Docusate CAP* 100 MG PO SCH ×2 (08:08→21:02)
[2018-09-24] MEDS: Apixaban* 2.5 MG TAB PO SCH ×2 (08:09→21:01)
[2018-09-24] MEDS: Donepezil TAB* 5 MG PO SCH (08:09)
[2018-09-24] MEDS: Citalopram TAB* 20 MG PO SCH (08:09)
[2018-09-24] MEDS: glipiZIDE TAB.XL* 2.5 MG PO SCH (08:09)
[2018-09-24] MEDS: ValACYclovir (*) 500 MG TAB PO SCH (08:09)
[2018-09-24] MEDS: prednisoLONE 1% OPHTH.SUSP* 5 ML OPHTH.SUSP BOTH EYES SCH (08:10)
--- NOTE | 2018-09-24 09:06 | PN ---
Progress Note Date of Service: 09/24/18 Note: VIVIEN RAY was visited. Nursing and therapy notes read and reviewed. Poor sleep last night. Could not "turn off" her mind. At home takes seroquel 100mg qhs. No chest pain, shortness of breath or abdominal pain. Did ok chewing gum yesterday. Current Medications: Active Medications Generic Name Dose Route Start Last Admin Trade Name Freq PRN Reason Stop Dose Admin Acetaminophen 650 mg 09/20/18 15:03 09/23/18 22:30 Tylenol Tab* PO 650 mg Q6H PRN Administration FEVER/HEADACHE Apixaban 2.5 mg 09/21/18 21:00 09/24/18 08:09 Eliquis* PO 2.5 mg BID DEBBIE Administration Aspirin 81 mg 09/21/18 09:00 09/24/18 08:08 Aspirin Ec Tab* PO 81 mg DAILY DEBBIE Administration Citalopram Hydrobromide 20 mg 09/21/18 09:00 09/24/18 08:09 Celexa Tab* PO 20 mg DAILY DEBBIE Administration Dextrose 12.5 gm 09/20/18 15:11 D50w Syringe 50 Ml* IV PUSH .FOR FS < 60 - SS PRN FS < 60 Docusate Sodium 100 mg 09/20/18 21:00 09/24/18 08:08 Colace Cap* PO 100 mg BID DEBBIE Administration Donepezil HCl 10 mg 09/21/18 09:00 09/24/18 08:09 Aricept Tab* PO 10 mg DAILY DEBBIE Administration Glipizide 2.5 mg 09/22/18 10:00 09/24/18 08:09 Glucotrol Xl* PO 2.5 mg DAILY DEBBIE Administration Insulin Glargine 12 units 09/22/18 21:00 09/23/18 20:12 Lantus(*) SUBCUT 12 units 2100 DEBBIE Administration Insulin Human Lispro 0 - 15 units 09/20/18 16:30 09/24/18 07:35 Humalog* SUBCUT Not Given ACHS [facility] Protocol Latanoprost 1 drop 09/20/18 21:00 09/23/18 20:10 Xalatan 0.005%* BOTH EYES 1 drop 2100 DEBBIE Administration Levothyroxine Sodium 100 mcg 09/21/18 06:00 09/24/18 06:25 Synthroid Tab* PO 100 mcg DAILY@0600 DEBBIE Administration Liraglutide 1.8 mg 09/23/18 21:00 09/23/18 20:14 Victoza (Nf) SUBCUT 1.8 mg BEDTIME DEBBIE Administration Protocol Meclizine HCl 12.5 mg 09/20/18 22:00 09/24/18 06:25 Antivert Tab* PO 12.5 mg Q8HR DEBBIE Administration Nifedipine 60 mg 09/21/18 09:00 09/24/18 08:08 Procardia Xl Tab* PO 60 mg DAILY DEBBIE Administration Pantoprazole Sodium 40 mg 09/21/18 09:00 09/24/18 08:08 Protonix Tab* PO 40 mg DAILY DEBBIE Administration Pravastatin Sodium 20 mg 09/21/18 17:00 09/23/18 17:24 Pravachol (Nf) PO 20 mg 1700 DEBBIE Administration Prednisolone Acetate 1 drop 09/21/18 09:00 09/24/18 08:10 Pred Forte 1%* BOTH EYES 1 drop DAILY DEBBIE Administration Senna 2 tab 09/20/18 15:10 Senokot Tab* PO BEDTIME PRN CONSTIPATION Valacyclovir HCl 500 mg 09/22/18 09:00 09/24/18 08:09 Valtrex 500 Mg (*) PO 500 mg Q48H DEBBIE Administration Protocol Vital Signs: Vital Signs Temp Pulse Resp BP Pulse Ox 97.3 F 62 18 154/68 95 09/24/18 06:26 09/24/18 06:26 09/24/18 06:26 09/24/18 06:26 09/24/18 08:00 Lab Results: Laboratory Results - last 24 hr 09/23/18 09/23/18 09/23/18 12:01 16:28 19:46 POC Glucose (mg/dL) 198 H 263 H 168 H 09/24/18 07:27 POC Glucose (mg/dL) 125 H Exam: GEN: no acute distress. Alert and appropriate. LUNGS: clear to auscultation bilaterally. HEART: regular rate and rhythm ABDOMEN: Soft, +BS, non-tender, non-distended EXTREMITIES: No edema NEUROLOGIC: CN II-XII intact. Some facial numbness. Right upper and lower extremity motor arm 4+/5 throughout. Sensation otherwise intact. Assessment/Plan: 1. Right Pontine/medullary CVA: PT/OT/CHARTER COORDINATOR. ASA/Eliquis/Pravachol 2. Diabetes: Home meds were metformin 750mg bid, glipizide 2.5mg qday, victoza 1.8mg subcut Qpm, and glargine 12u subcut qhs. Her Cr is a bit elevated, so I am hesitant to restart metformin yet and she may not need it. Continue victoza 1.8mg qhs, glipizide 2.5mg qam and lantus 12u QHS. 3. History of PE: Eliquis 4. Sleep Apnea: CPAP 5. HTN: Procardia 6. Dementia: Aricept 7. DVT Prophylaxis: Eliquis 8. Advanced Directives: Full Code 9. Dysphagia/Coughing: on regular consistency consistent carbohydrate diet with extra sauces and gravies. Thin liquids ok with no straw, small sips with chin tuck and pause between sips. Pills in applesauce. Videofluoro swallow study ordered for this week per speech recommendation. 10. Insomnia and depression: on celexa. Add back in seroquel 50mg qhs and if tolerated and needed consider increase to home dose of 100mg qhs. 11. Estimated LOS: 09/28/18 09/24/18 09:05
[2018-09-24] MEDS: CMCS: Pravastatin (NF) 20 MG TAB PO SCH (16:34)
[2018-09-24] MEDS: Acetaminophen TAB* 325 MG PO PRN (18:38)
[2018-09-24] MEDS: QUEtiapine TAB* 25 MG PO SCH (21:02)
[2018-09-24] MEDS: Latanoprost 0.005%* 2.5 ml BTL BOTH EYES SCH (21:05)
[2018-09-24] MEDS: Insulin GLARGINE(*) 1 UNITS UNIT SUBCUT SCH (21:06)
[2018-09-24] MEDS: PTO - Liraglutide (NF) 18 MG/3 ML SUBCUT SCH (21:08)
[2018-09-25] MEDS: Levothyroxine TAB* 100 MCG TAB PO SCH (05:58)
[2018-09-25] MEDS: Meclizine TAB* 12.5 MG PO SCH ×3 (05:58→21:24)
[2018-09-25] MEDS: Apixaban* 2.5 MG TAB PO SCH ×2 (08:36→21:14)
[2018-09-25] MEDS: Pantoprazole TAB * 40 MG TAB PO SCH (08:37)
[2018-09-25] MEDS: Citalopram TAB* 20 MG PO SCH (08:37)
[2018-09-25] MEDS: Aspirin EC TAB* 81 MG TAB.EC PO SCH (08:37)
[2018-09-25] MEDS: Donepezil TAB* 5 MG PO SCH (08:37)
[2018-09-25] MEDS: NIFEdipine ER TAB* 60 MG PO SCH (08:37)
[2018-09-25] MEDS: Docusate CAP* 100 MG PO SCH ×2 (08:37→21:15)
[2018-09-25] MEDS: glipiZIDE TAB.XL* 2.5 MG PO SCH (08:39)
[2018-09-25] MEDS: prednisoLONE 1% OPHTH.SUSP* 5 ML OPHTH.SUSP BOTH EYES SCH (08:39)
[2018-09-25] MEDS: Insulin LISPRO* 1 UNITS UNIT SUBCUT SCH ×4 (08:49→21:11)
[2018-09-25] MEDS ORDERED: Magnesium Hydroxide LIQ* 30 ML UDC ONE (13:28)
[2018-09-25] MEDS ORDERED: Magnesium Hydroxide LIQ* 30 ML UDC PO ONE (13:30)
--- NOTE | 2018-09-25 18:22 | PN ---
Progress Note Date of Service: 09/25/18 Note: VIVIEN RAY was visited. Therapy notes read and reviewed. She had a video swallow today with HYDRODYNAMICS TEACHER and was noted to silently aspirate liquids, including nectar thickened and honey thick. Now on pudding thick liquids. Have downgraded textures to mech ground. Current Medications: Active Medications Generic Name Dose Route Start Last Admin Trade Name Freq PRN Reason Stop Dose Admin Acetaminophen 650 mg 09/20/18 15:03 09/24/18 18:38 Tylenol Tab* PO 650 mg Q6H PRN Administration FEVER/HEADACHE Apixaban 2.5 mg 09/21/18 21:00 09/25/18 08:36 Eliquis* PO 2.5 mg BID DEBBIE Administration Aspirin 81 mg 09/21/18 09:00 09/25/18 08:37 Aspirin Ec Tab* PO 81 mg DAILY DEBBIE Administration Citalopram Hydrobromide 20 mg 09/21/18 09:00 09/25/18 08:37 Celexa Tab* PO 20 mg DAILY DEBBIE Administration Dextrose 12.5 gm 09/20/18 15:11 D50w Syringe 50 Ml* IV PUSH .FOR FS < 60 - SS PRN FS < 60 Docusate Sodium 100 mg 09/20/18 21:00 09/25/18 08:37 Colace Cap* PO 100 mg BID DEBBIE Administration Donepezil HCl 10 mg 09/21/18 09:00 09/25/18 08:37 Aricept Tab* PO 10 mg DAILY DEBBIE Administration Glipizide 2.5 mg 09/22/18 10:00 09/25/18 08:39 Glucotrol Xl* PO 2.5 mg DAILY DEBBIE Administration Insulin Glargine 12 units 09/22/18 21:00 09/24/18 21:06 Lantus(*) SUBCUT 12 units 2100 DEBBIE Administration Insulin Human Lispro 0 - 15 units 09/20/18 16:30 09/25/18 12:07 Humalog* SUBCUT 3 units ACHS DEBBIE Administration Protocol Latanoprost 1 drop 09/20/18 21:00 09/24/18 21:05 Xalatan 0.005%* BOTH EYES 1 drop 2100 DEBBIE Administration Levothyroxine Sodium 100 mcg 09/21/18 06:00 09/25/18 05:58 Synthroid Tab* PO 100 mcg DAILY@0600 DEBBIE Administration Liraglutide 1.8 mg 09/23/18 21:00 09/24/18 21:08 Victoza (Nf) SUBCUT 1.8 mg BEDTIME DEBBIE Administration Protocol Meclizine HCl 12.5 mg 09/20/18 22:00 09/25/18 13:30 Antivert Tab* PO 12.5 mg Q8HR DEBBIE Administration Nifedipine 60 mg 09/21/18 09:00 09/25/18 08:37 Procardia Xl Tab* PO 60 mg DAILY DEBBIE Administration Pantoprazole Sodium 40 mg 09/21/18 09:00 09/25/18 08:37 Protonix Tab* PO 40 mg DAILY DEBBIE Administration Pravastatin Sodium 20 mg 09/21/18 17:00 09/24/18 16:34 Pravachol (Nf) PO 20 mg 1700 DEBBIE Administration Prednisolone Acetate 1 drop 09/21/18 09:00 09/25/18 08:39 Pred Forte 1%* BOTH EYES 1 drop DAILY DEBBIE Administration Quetiapine Fumarate 50 mg 09/24/18 21:00 09/24/18 21:02 Seroquel Tab* PO 50 mg BEDTIME DEBBIE Administration Senna 2 tab 09/20/18 15:10 Senokot Tab* PO BEDTIME PRN CONSTIPATION Valacyclovir HCl 500 mg 09/22/18 09:00 09/24/18 08:09 Valtrex 500 Mg (*) PO 500 mg Q48H DEBBIE Administration Protocol Vital Signs: Vital Signs Temp Pulse Resp BP Pulse Ox 97.8 F 69 18 136/74 98 09/25/18 15:54 09/25/18 15:54 09/25/18 17:59 09/25/18 15:54 09/25/18 17:59 Lab Results: Laboratory Results - last 24 hr 09/24/18 09/25/18 09/25/18 20:29 08:08 12:03 POC Glucose (mg/dL) 140 H 148 H 174 H 09/25/18 16:23 POC Glucose (mg/dL) 171 H Exam: GEN: no acute distress. Alert and appropriate. LUNGS: clear to auscultation bilaterally. HEART: regular rate and rhythm ABDOMEN: Soft, +BS, non-tender, non-distended EXTREMITIES: No edema NEUROLOGIC: CN II-XII intact. Some facial numbness. Right upper and lower extremity motor arm 4+/5 throughout. Sensation otherwise intact. Assessment/Plan: 1. Right Pontine/medullary CVA: PT/OT/HYDRODYNAMICS TEACHER. ASA/Eliquis/Pravachol 2. Diabetes: Continue victoza 1.8mg qhs, glipizide 2.5mg qam and lantus 12u QHS. 3. History of PE: Eliquis 4. Sleep Apnea: CPAP 5. HTN: Procardia 6. Dementia: Aricept 7. DVT Prophylaxis: Eliquis 8. Advanced Directives: Full Code 9. Dysphagia/Coughing: Mech ground/pudding thick liquids 10. Insomnia and depression: on celexa. Added back in seroquel 50mg qhs and if tolerated and needed consider increase to home dose of 100mg qhs. 11. Estimated LOS: 09/28/18 09/25/18 18:22
[2018-09-25] MEDS: CMCS: Pravastatin (NF) 20 MG TAB PO SCH (18:39)
[2018-09-25] MEDS: Insulin GLARGINE(*) 1 UNITS UNIT SUBCUT SCH (21:12)
[2018-09-25] MEDS: PTO - Liraglutide (NF) 18 MG/3 ML SUBCUT SCH (21:12)
[2018-09-25] MEDS: Latanoprost 0.005%* 2.5 ml BTL BOTH EYES SCH (21:13)
[2018-09-25] MEDS: QUEtiapine TAB* 25 MG PO SCH (21:13)
[2018-09-25] MEDS: Senna TAB PO PRN (21:13)
[2018-09-26] MEDS: Levothyroxine TAB* 100 MCG TAB PO SCH (05:40)
[2018-09-26] MEDS: Meclizine TAB* 12.5 MG PO SCH ×3 (05:40→20:47)
[2018-09-26] MEDS: Apixaban* 2.5 MG TAB PO SCH ×2 (08:49→19:34)
[2018-09-26] MEDS: Pantoprazole TAB * 40 MG TAB PO SCH (08:50)
[2018-09-26] MEDS: Donepezil TAB* 5 MG PO SCH (08:50)
[2018-09-26] MEDS: Docusate CAP* 100 MG PO SCH ×2 (08:50→19:35)
[2018-09-26] MEDS: ValACYclovir (*) 500 MG TAB PO SCH (08:50)
[2018-09-26] MEDS: NIFEdipine ER TAB* 60 MG PO SCH (08:50)
[2018-09-26] MEDS: Citalopram TAB* 20 MG PO SCH (08:50)
[2018-09-26] MEDS: Insulin LISPRO* 1 UNITS UNIT SUBCUT SCH ×4 (08:50→20:47)
[2018-09-26] MEDS: Aspirin EC TAB* 81 MG TAB.EC PO SCH (08:50)
[2018-09-26] MEDS: prednisoLONE 1% OPHTH.SUSP* 5 ML OPHTH.SUSP BOTH EYES SCH (08:50)
[2018-09-26] MEDS: glipiZIDE TAB.XL* 2.5 MG PO SCH (08:50)
--- NOTE | 2018-09-26 12:45 | PMRUTEAM ---
PMRU: Team Meeting Current Status: Nursing: Current Status Skin Deviations [none] Other Skin Deviation Description [ none none] Physical Therapy: Current Status Bed Mobility Assistance Supervision Transfer Mobility Assistance Supervision,Contact Guard Assist Transfer/Bed Mobility Rolling Walker Recommended Devices Ambulation Assistance Supervision,Contact Guard Assist Ambulation Assistive Devices Rolling Walker Number of Feet Patient 150 Ambulated Stairs Assistance Supervision Stairs Recommended Devices Two Rails Number of Stairs 2x5 Objective Comments step through pattern ascending stairs, step to pattern descending stairs leading with RLE Occupational Therapy: Current Status Upper Body Dressing Supervision Lower Body Dressing Min Assist Lower Body Dressing Progress at baseline Bathing Contact Guard Assist Toileting Supervision Toilet Transfer Contact Guard Assist Shower Transfer Contact Guard Assist Eating Supervision Eating Progress set-up Rec Therapy: Current Status Summary of Assessment and RT assessment complete and pt. is active in Clinical Impression leisure sessions daily. Pt. engage in a card game for 45 minutes. Pt. has been in good spirits and expresses forward thinking. Treatment Goals Pt. will continue to engage in leisure activities while on the unit. Treatment Plan Provide RT services and encourage involvement. Social Work: Current Status Discharge Plan return home with home care svs and family support Potential for Family Training pt's is scheduled for family training Tuesday at 9:30 w/ stroke ed to follow Anticipated Discharge Home Destination Discharge With Lifetime Care and family support Nutrition: Current Status Monitoring Eating 100% of meals independently. Glycemic control fair: 120-160s with excursions into 240s at times. Receiving Glipizide as well as Lantus and Humalog. Skin intact per nursing assessments. Last BM 09/22. Received milk of mag and colace today (09/25). Will follow for results; otherwise overall meeting goals as below. Speech: Current Status Assessment Provider requested that FRONT END APPLICATION DEVELOPER reassess patient's diet consistencies. Nursing had reported patient having wet coughing when taking pills with water, and when drinking liquids. Patient tolerated pills in applesauce well. Patient demonstrated wet cough with large sips by cup or straw, but tolerated thin liquid by cup when drinking with chin tucked and taking single sips with pause between. Note that patient is not accepting of thickened liquids and would risk inadequate hydration with nectar liquids. See orange Swallow Guidelines assistant food service director in patient's room. Recommend: Videofluoroscopic Swallow Study (Swallow Function XA) to fully assess swallow function and determine if diet restriction or treatment is indicated. Recommend diet order: 1) Regular diet consistency, with extra sauces and gravies 2) Thin liquids, No straws, tuck chin and take single sips. Goals: Physical Therapy: Initial Goals Bed Mobility Assistance Independent Transfer Mobility Assistance Independent Transfer/Bed Mobility Rolling Walker Recommended Devices Ambulation Independent Ambulation Recommended Devices Rolling Walker Ambulation Distance 150 Stairs Assistance Independent Stair Recommended Devices Two Rails Number of Stairs 5 Home Exercise Program Independent Assistance Physical Therapy: Updated Goals Transfer/Bed Mobility Rolling Walker Recommended Devices Occupational Therapy: Initial Goals Goals to be Completed in (Days 7 ) Upper Body Bathing Routine Independent Lower Body Bathing Routine Modified Independent with Upper Body Dressing Routine Independent Lower Body Dressing Routine Modified Independent with Toilet Hygeine and Clothing Modified Independent with Management Routine Toilet Transfer Routine Modified Independent with Step-In Shower Transfer Supervision/Set Up Routine Functional Transfers for ADL Modified Independent with Grooming Routine Independent Feeding Routine Independent Light Housekeeping Tasks Minimal Contact Assist Nutrition: Goals Intervention Goals 1. adequate po intake to maintain lean body mass and hydration w/o add'l wt gain 2. pt will tolerate least-restrictive diet textures w/o difficulty chewing/swallowing 3. adequate glycemic control per inpatient parameters; so s/sx hypo- or hyperglycemia 4. maintain bowel regularity w/o constipation or diarrhea Speech: Goals Speech Goal 1 Swallowing Goal 1 Comments Long-Term Goal: The patient will safely and successfully tolerate the least restrictive diet consistency with ultimate videofluoroscopic evidence of no penetration or aspiration of recommended consistencies. Short-Term Goals: 1) The patient will successfully complete lingual base exercises with 75% accuracy, maximum cues. 2) The patient will successfully complete pharyngeal strengthening exercises with 75% accuracy, maximum cues. 3) The patient will successfully learn and utilize compensatory swallowing strategies for optimal swallowing safety with foodstuff and liquids >95% of the time. 4) The patient will participate in a f/u videofluoroscopy following 5-10 sessions of skilled swallowing dysfunction treatment to determine if progress is being made and to determine the safest, least restrictive diet consistencies, with use of compensatory swallowing strategies if needed. Social Work: Goals Discharge Plan return home with home care svs and family support Potential for Family Training pt's is scheduled for family training Tuesday at 9:30 w/ stroke ed to follow Anticipated Discharge Home Destination Discharge With Lifetime Care and family support Care Plan: Care Plan ADL's - Improve/Maintain Start: 09/20/18 14:25 Freq: DAILY Status: Active Target: Protocol: Activity Type Activity Date Activity User E-Sign Co-Sign Detail Recorded Client Recorded Date Recorded By Document 09/26/18 11:48 [id number] 09/26/18 11:48 [id number] 09/26/18 11:48 PMRU Outcome: ADL's/ADL Transfers Orders/Interventions Occupational Therapy Evaluation & Treatment Communication Tool in Patient Room Patient to receive OT 5x/wk for 60-120 Therex min/day Self Care Management Group Therapy Neuromuscular ReEducation UE/LE ADL's with Assist Yes: mod I ADL Transfers with Assist Yes: mod I Toileting: Transfers,Clothing Management Yes: mod I ,Hygeine w/Assist Light Kitchen/Laundry w/Assist Yes: mod I Progression Toward Outcome/Goals Progressing Outcome/Goals Met Pt presents with depressed affect today and needs encouragement to engage. Cooking activity was deferred to a later time d/t pt's acute fatigue and difficulty with balance. Room Service Server will make-up final 15 minutes of therapy after lunch. Pt is agreeable but notes she just wants to be left alone to sleep. Cardiovascular- Improve/Maintain Start: 09/20/18 23:35 Freq: QSHIFT Status: Active Target: Protocol: Activity Type Activity Date Activity User E-Sign Co-Sign Detail Recorded Client Recorded Date Recorded By Document 09/26/18 00:54 [id number] [id number] 09/26/18 00:54 [id number] 09/26/18 00:54 PMRU Outcome: Cardiovascular Vital Signs q Shift for 48hrs Then BID Yes Daily Weight Ordered No Current Cardiovascular Outcome/Goal Maintain/ Achieve Baseline HR, BP , Perfusion Maintain/ Improve Perfusion Free of Abnormal Cardiac Symptoms Progression Toward Outcome/Goal Progressing Communication-Improve/Maintain Start: 09/25/18 19:40 Freq: DAILY Status: Active Target: Protocol: Activity Type Activity Date Activity User E-Sign Co-Sign Detail Recorded Client Recorded Date Recorded By Document 09/26/18 00:54 [id number] [id number] 09/26/18 00:54 [id number] 09/26/18 00:54 PMRU Outcome: Communication/Cognitive Status Outcome/Goals Other Other Outcomes/Goals Long-Term Goal: The patient will safely and successfully tolerate the least restrictive diet consistency with ultimate videofluoroscop ic evidence of no penetration or aspiration of recommended consistencies. Short-Term Goals: 1) The patient will successfully complete lingual base exercises with 75% accuracy, maximum cues. 2) The patient will successfully complete pharyngeal strengthening exercises with 75% accuracy, maximum cues. 3) The patient will successfully learn and utilize compensatory swallowing strategies for optimal swallowing safety with foodstuff and liquids >95% of the time. 4) The patient will participate in a f/u videofluoroscop y following 5- 10 sessions of skilled swallowing dysfunction treatment to determine if progress is being made and to determine the safest, least restrictive diet consistencies, with use of compensatory swallowing strategies if needed. Coping/Psych-Improve/Maintain Start: 09/20/18 23:35 Freq: QSHIFT Status: Active Target: Protocol: Activity Type Activity Date Activity User E-Sign Co-Sign Detail Recorded Client Recorded Date Recorded By Document 09/26/18 00:54 [id number] [id number] 09/26/18 00:54 [id number] 09/26/18 00:54 PMRU Outcome: Coping/Psychosocial Coping Outcome/Goals Verbalization of Acceptance of Rehab Admit Utilization of Appropriate Problem Solving Techniques Willingness to Participate in Treatment Plan and Basic Needs Utilization of Available Support Systems Absence of Destructive Behavior to Self/Others Psychosocial Outcome/Goals Maintain/ Improve Emotional Health Cooperate/ Participate in Plan Progression Toward Outcome/Goals - Progressing Coping Progression Toward Outcome/Goals - Progressing Psychosocial Discharge Planning - Improve/Maintain Start: 09/20/18 23:35 Freq: DAILY Status: Active Target: Protocol: Activity Type Activity Date Activity User E-Sign Co-Sign Detail Recorded Client Recorded Date Recorded By Document 09/26/18 00:54 [id number] 09/26/18 00:54 [id number] 09/26/18 00:54 PMRU Outcome: Discharge Planning Update Patient Family No Outcome/Goals Demonstrates Understanding of Discharge Plan Progression Toward Outcome/Goals Progressing Education-Improve/Maintain Start: 09/20/18 23:35 Freq: QSHIFT Status: Active Target: Protocol: Activity Type Activity Date Activity User E-Sign Co-Sign Detail Recorded Client Recorded Date Recorded By Document 09/26/18 00:54 [id number] 09/26/18 00:54 [id number] 09/26/18 00:54 PMRU Outcome: Education Outcome/Goals Demonstrate/ Verbalize Understanding of Written Discharge Instructions Demonstrates Skills Encourage Questions Progression Toward Outcome/Goals Progressing Metabolic Status- Improve/Maintain Start: 09/20/18 23:35 Freq: QSHIFT Status: Active Target: Protocol: Activity Type Activity Date Activity User E-Sign Co-Sign Detail Recorded Client Recorded Date Recorded By Document 09/26/18 00:54 [id number] 09/26/18 00:54 [id number] 09/26/18 00:54 PMRU Outcome: Metabolic Status Have Fingersticks Been Ordered Yes Fingerstick Order Frequency AC & HS Outcome/Goals Maintain/ Improve Metabolic Status Demonstrate Knowledge of Prevention/ Treatment of Metabolic Imbalances Progression Toward Outcome/Goals Progressing Mobility- Improve/Maintain Start: 09/22/18 08:39 Freq: DAILY Status: Active Target: Protocol: Activity Type Activity Date Activity User E-Sign Co-Sign Detail Recorded Client Recorded Date Recorded By Document 09/22/18 08:39 [id number] 09/22/18 08:41 [id number] 09/22/18 08:39 PMRU Outcome: Mobility Physical Therapy Evaluation and Yes Treatment Activity OOB with Assistance Yes Device Yes: FWW Assistance Yes: CGA-Min A Patient to be seen 5x/wk for 60-120 min/ Therex day for: Mobility Training Gait Training Balance Outcome/Goals Maintain/ Achieve Baseline Mobility Status Improve Mobility Status Demonstrates Proper Use of Assistive Devices Free from Complications of Immobility Bed Mobility Yes: Ind Transfers Yes: Mod I Gait x ft Yes: Mod I x150ft Up/Down Stairs Yes: Ind x 5 steps, 2 rails With HEP Yes Neurological- Improve/Maintain Start: 09/20/18 23:35 Freq: QSHIFT Status: Active Target: Protocol: Activity Type Activity Date Activity User E-Sign Co-Sign Detail Recorded Client Recorded Date Recorded By Document 09/26/18 00:54 [id number] 09/26/18 00:54 [id number] 09/26/18 00:54 PMRU Outcome: Neurological Weakness/Aphasia Weakness Outcome/Goals Maintain/ Achieve Baseline Neurological Status Improve Neurological Status Prevent Avoidable Neurological Decline Maintain/ Improve Strength/ROM Progression Toward Outcome/Goals Progressing Safety- Improve/Maintain Start: 09/20/18 23:35 Freq: QSHIFT Status: Active Target: Protocol: Activity Type Activity Date Activity User E-Sign Co-Sign Detail Recorded Client Recorded Date Recorded By Document 09/26/18 00:54 [id number] [id number] 09/26/18 00:54 [id number] 09/26/18 00:54 PMRU Outcome: Safety Outcome/Goals Remain Free of Injury or Harm Cooperates with Safety Measures for Least Restrictive Environment Prevent Falls/ Injury Progression Toward Outcome/Goals Progressing Outcome/Goals Met Comment MELI armed Medicine Note: Length of Stay: 3 days Anticipated Discharge Destination: Home Tentative Discharge Date: 09/29/18 Discharged to: Home
[2018-09-26] MEDS ORDERED: Magnesium Hydroxide LIQ* 30 ML UDC PO PRN (14:04)
[2018-09-26] MEDS: CMCS: Pravastatin (NF) 20 MG TAB PO SCH (17:01)
--- NOTE | 2018-09-26 18:04 | PN ---
Progress Note Date of Service: 09/26/18 Note: VIVIEN RAY was visited. Therapy notes read and reviewed. She was discussed in interdisciplinary team rounds. The results of her swallow study were reviewed. We think she can use the Shine Free Water protocol and have water, unthickened, between meals. We may lower her to nectar thick consistency , as there was pooling, but perhaps no aspiration on the video Current Medications: Active Medications Generic Name Dose Route Start Last Admin Trade Name Freq PRN Reason Stop Dose Admin Acetaminophen 650 mg 09/20/18 15:03 09/24/18 18:38 Tylenol Tab* PO 650 mg Q6H PRN Administration FEVER/HEADACHE Apixaban 2.5 mg 09/21/18 21:00 09/26/18 08:49 Eliquis* PO 2.5 mg BID DEBBIE Administration Aspirin 81 mg 09/21/18 09:00 09/26/18 08:50 Aspirin Ec Tab* PO 81 mg DAILY DEBBIE Administration Citalopram Hydrobromide 20 mg 09/21/18 09:00 09/26/18 08:50 Celexa Tab* PO 20 mg DAILY DEBBIE Administration Dextrose 12.5 gm 09/20/18 15:11 D50w Syringe 50 Ml* IV PUSH .FOR FS < 60 - SS PRN FS < 60 Docusate Sodium 100 mg 09/20/18 21:00 09/26/18 08:50 Colace Cap* PO 100 mg BID DEBBIE Administration Donepezil HCl 10 mg 09/21/18 09:00 09/26/18 08:50 Aricept Tab* PO 10 mg DAILY DEBBIE Administration Glipizide 2.5 mg 09/22/18 10:00 09/26/18 08:50 Glucotrol Xl* PO 2.5 mg DAILY DEBBIE Administration Insulin Glargine 12 units 09/22/18 21:00 09/25/18 21:12 Lantus(*) SUBCUT 12 units 2100 DEBBIE Administration Insulin Human Lispro 0 - 15 units 09/20/18 16:30 09/26/18 17:00 Humalog* SUBCUT 6 units ACHS DEBBIE Administration Protocol Latanoprost 1 drop 09/20/18 21:00 09/25/18 21:13 Xalatan 0.005%* BOTH EYES 1 drop 2100 DEBBIE Administration Levothyroxine Sodium 100 mcg 09/21/18 06:00 09/26/18 05:40 Synthroid Tab* PO 100 mcg DAILY@0600 DEBBIE Administration Liraglutide 1.8 mg 09/23/18 21:00 09/25/18 21:12 Victoza (Nf) SUBCUT 1.8 mg BEDTIME DEBBIE Administration Protocol Magnesium Hydroxide 30 ml 09/26/18 14:04 Milk Of Magnesia Liq* PO Q6H PRN CONSTIPATION Meclizine HCl 12.5 mg 09/20/18 22:00 09/26/18 14:28 Antivert Tab* PO 12.5 mg Q8HR DEBBIE Administration Nifedipine 60 mg 09/21/18 09:00 09/26/18 08:50 Procardia Xl Tab* PO 60 mg DAILY DEBBIE Administration Pantoprazole Sodium 40 mg 09/21/18 09:00 09/26/18 08:50 Protonix Tab* PO 40 mg DAILY DEBBIE Administration Pravastatin Sodium 20 mg 09/21/18 17:00 09/26/18 17:01 Pravachol (Nf) PO 20 mg 1700 DEBBIE Administration Prednisolone Acetate 1 drop 09/21/18 09:00 09/26/18 08:50 Pred Forte 1%* BOTH EYES 1 drop DAILY DEBBIE Administration Quetiapine Fumarate 50 mg 09/24/18 21:00 09/25/18 21:13 Seroquel Tab* PO 50 mg BEDTIME DEBBIE Administration Senna 2 tab 09/20/18 15:10 09/25/18 21:13 Senokot Tab* PO 2 tab BEDTIME PRN Administration CONSTIPATION Valacyclovir HCl 500 mg 09/22/18 09:00 09/26/18 08:50 Valtrex 500 Mg (*) PO 500 mg Q48H DEBBIE Administration Protocol Vital Signs: Vital Signs Temp Pulse Resp BP Pulse Ox 97.9 F 64 16 146/63 96 09/26/18 05:40 09/26/18 05:40 09/26/18 05:40 09/26/18 05:40 09/26/18 05:40 Lab Results: Laboratory Results - last 24 hr 09/25/18 09/26/18 09/26/18 20:21 08:12 12:07 POC Glucose (mg/dL) 231 H 142 H 174 H 09/26/18 16:27 POC Glucose (mg/dL) 229 H Exam: GEN: no acute distress. Alert and appropriate. LUNGS: clear to auscultation bilaterally. HEART: regular rate and rhythm ABDOMEN: Soft, +BS, non-tender, non-distended EXTREMITIES: No edema NEUROLOGIC: CN II-XII intact. Some facial numbness. Right upper and lower extremity motor arm 4+/5 throughout. Sensation otherwise intact. Assessment/Plan: 1. 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 ASA/Eliquis/Pravachol 2. Diabetes: Continue victoza 1.8mg qhs, glipizide 2.5mg qam and lantus 12u QHS. 3. History of PE: Eliquis 4. Sleep Apnea: CPAP 5. HTN: Procardia 6. Dementia: Aricept 7. DVT Prophylaxis: Eliquis 8. Advanced Directives: Full Code 9. Dysphagia/Coughing: Mech ground/pudding thick liquids, free water between meals (Shine water protocol) 10. Insomnia and depression: on celexa. Added back in seroquel 50mg qhs and if tolerated and needed consider increase to home dose of 100mg qhs. 09/26/18 18:05 09/26/18 18:07
[2018-09-26] MEDS: Acetaminophen TAB* 325 MG PO PRN (19:34)
[2018-09-26] MEDS: QUEtiapine TAB* 25 MG PO SCH (19:35)
[2018-09-26] MEDS: Latanoprost 0.005%* 2.5 ml BTL BOTH EYES SCH (19:35)
[2018-09-26] MEDS: PTO - Liraglutide (NF) 18 MG/3 ML SUBCUT SCH (19:39)
[2018-09-26] MEDS: Senna TAB PO PRN (19:46)
[2018-09-26] MEDS: Insulin GLARGINE(*) 1 UNITS UNIT SUBCUT SCH (20:46)
[2018-09-27] MEDS: Meclizine TAB* 12.5 MG PO SCH ×3 (05:48→21:23)
[2018-09-27] MEDS: Levothyroxine TAB* 100 MCG TAB PO SCH (05:48)
[2018-09-27 07:49] LABS: Albumin 3.3 g/dL (3.2-5.2); Albumin/Globulin Ratio 1.3 (1-3); Calcium 9.3 mg/dL (8.6-10.3); EGFR African American 53.6 (>60); EGFR Non-African American 44.3 (>60); Globulin 2.6 g/dL (2-4); Potassium 4.3 mmol/L (3.5-5.0); Total Bilirubin 0.4 mg/dL (0.2-1.0); Total Protein 5.9 g/dL (6.4-8.9)
[2018-09-27] MEDS: Citalopram TAB* 20 MG PO SCH (09:16)
[2018-09-27] MEDS: Aspirin EC TAB* 81 MG TAB.EC PO SCH (09:16)
[2018-09-27] MEDS: Docusate CAP* 100 MG PO SCH ×2 (09:16→21:22)
[2018-09-27] MEDS: Apixaban* 2.5 MG TAB PO SCH ×2 (09:16→21:23)
[2018-09-27] MEDS: glipiZIDE TAB.XL* 2.5 MG PO SCH (09:17)
[2018-09-27] MEDS: Insulin LISPRO* 1 UNITS UNIT SUBCUT SCH ×4 (09:17→21:43)
[2018-09-27] MEDS: Pantoprazole TAB * 40 MG TAB PO SCH (09:17)
[2018-09-27] MEDS: NIFEdipine ER TAB* 60 MG PO SCH (09:17)
[2018-09-27] MEDS: prednisoLONE 1% OPHTH.SUSP* 5 ML OPHTH.SUSP BOTH EYES SCH (09:17)
[2018-09-27] MEDS: Donepezil TAB* 5 MG PO SCH (09:21)
[2018-09-27] MEDS: Acetaminophen TAB* 325 MG PO PRN (15:11)
[2018-09-27] MEDS: CMCS: Pravastatin (NF) 20 MG TAB PO SCH (16:59)
--- NOTE | 2018-09-27 20:10 | PN ---
Progress Note Date of Service: 09/27/18 Note: VIVIEN RAY was visited. Therapy notes read and reviewed. She had a repeat video fluroscopy with speech and there was no s/s of aspiration. Upgraded diet to regular textures thin liquids. For discharge tomorrow. Current Medications: Active Medications Generic Name Dose Route Start Last Admin Trade Name Freq PRN Reason Stop Dose Admin Acetaminophen 650 mg 09/20/18 15:03 09/27/18 15:11 Tylenol Tab* PO 650 mg Q6H PRN Administration FEVER/HEADACHE Apixaban 2.5 mg 09/21/18 21:00 09/27/18 09:16 Eliquis* PO 2.5 mg BID DEBBIE Administration Aspirin 81 mg 09/21/18 09:00 09/27/18 09:16 Aspirin Ec Tab* PO 81 mg DAILY DEBBIE Administration Citalopram Hydrobromide 20 mg 09/21/18 09:00 09/27/18 09:16 Celexa Tab* PO 20 mg DAILY DEBBIE Administration Dextrose 12.5 gm 09/20/18 15:11 D50w Syringe 50 Ml* IV PUSH .FOR FS < 60 - SS PRN FS < 60 Docusate Sodium 100 mg 09/20/18 21:00 09/27/18 09:16 Colace Cap* PO 100 mg BID DEBBIE Administration Donepezil HCl 10 mg 09/21/18 09:00 09/27/18 09:21 Aricept Tab* PO 10 mg DAILY DEBBIE Administration Glipizide 2.5 mg 09/22/18 10:00 09/27/18 09:17 Glucotrol Xl* PO 2.5 mg DAILY DEBBIE Administration Insulin Glargine 12 units 09/22/18 21:00 09/26/18 20:46 Lantus(*) SUBCUT 12 units 2100 DEBBIE Administration Insulin Human Lispro 0 - 15 units 09/20/18 16:30 09/27/18 16:59 Humalog* SUBCUT Not Given ACHS [facility] Protocol Lactulose 30 ml 09/27/18 18:44 Lactulose* PO Q6H PRN CONSTIPATION Latanoprost 1 drop 09/20/18 21:00 09/26/18 19:35 Xalatan 0.005%* BOTH EYES 1 drop 2100 DEBBIE Administration Levothyroxine Sodium 100 mcg 09/21/18 06:00 09/27/18 05:48 Synthroid Tab* PO 100 mcg DAILY@0600 DEBBIE Administration Liraglutide 1.8 mg 09/23/18 21:00 09/26/18 19:39 Victoza (Nf) SUBCUT 1.8 mg BEDTIME DEBBIE Administration Protocol Magnesium Hydroxide 30 ml 09/26/18 14:04 09/26/18 19:34 Milk Of Magnesia Liq* PO 30 ml Q6H PRN Administration CONSTIPATION Meclizine HCl 12.5 mg 09/20/18 22:00 09/27/18 15:12 Antivert Tab* PO 12.5 mg Q8HR DEBBIE Administration Nifedipine 60 mg 09/21/18 09:00 09/27/18 09:17 Procardia Xl Tab* PO 60 mg DAILY DEBBIE Administration Pantoprazole Sodium 40 mg 09/21/18 09:00 09/27/18 09:17 Protonix Tab* PO 40 mg DAILY DEBBIE Administration Pravastatin Sodium 20 mg 09/21/18 17:00 09/27/18 16:59 Pravachol (Nf) PO 20 mg 1700 DEBBIE Administration Prednisolone Acetate 1 drop 09/21/18 09:00 09/27/18 09:17 Pred Forte 1%* BOTH EYES 1 drop DAILY DEBBIE Administration Quetiapine Fumarate 50 mg 09/24/18 21:00 09/26/18 19:35 Seroquel Tab* PO 50 mg BEDTIME DEBBIE Administration Senna 2 tab 09/20/18 15:10 09/26/18 19:46 Senokot Tab* PO 2 tab BEDTIME PRN Administration CONSTIPATION Valacyclovir HCl 500 mg 09/22/18 09:00 09/26/18 08:50 Valtrex 500 Mg (*) PO 500 mg Q48H DEBBIE Administration Protocol Vital Signs: Vital Signs Temp Pulse Resp BP Pulse Ox 97.7 F 62 18 146/73 98 09/27/18 16:39 09/27/18 16:39 09/27/18 17:50 09/27/18 16:39 09/27/18 16:39 Lab Results: Laboratory Results - last 24 hr 09/26/18 09/27/18 09/27/18 20:18 07:03 08:16 Sodium 138 Potassium 4.3 Chloride 103 Carbon Dioxide 29 Anion Gap 6 BUN 18 Creatinine 1.20 H Est GFR ( Amer) 53.6 Est GFR (Non-Af Amer) 44.3 BUN/Creatinine Ratio 15.0 Glucose 138 H POC Glucose (mg/dL) 213 H 131 H Calcium 9.3 Total Bilirubin 0.40 AST 18 ALT 16 Alkaline Phosphatase 70 Total Protein 5.9 L Albumin 3.3 Globulin 2.6 Albumin/Globulin Ratio 1.3 09/27/18 09/27/18 12:22 16:35 Sodium Potassium Chloride Carbon Dioxide Anion Gap BUN Creatinine Est GFR ( Amer) Est GFR (Non-Af Amer) BUN/Creatinine Ratio Glucose POC Glucose (mg/dL) 158 H 92 Calcium Total Bilirubin AST ALT Alkaline Phosphatase Total Protein Albumin Globulin Albumin/Globulin Ratio Exam: GEN: no acute distress. Alert and appropriate. LUNGS: clear to auscultation bilaterally. HEART: regular rate and rhythm ABDOMEN: Soft, +BS, non-tender, non-distended EXTREMITIES: No edema NEUROLOGIC: CN II-XII intact. Some facial numbness. Right upper and lower extremity motor arm 4+/5 throughout. Sensation otherwise intact. Assessment/Plan: 1. 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 ASA/Eliquis/Pravachol 2. Diabetes: Continue victoza 1.8mg qhs, glipizide XL 2.5mg qam and lantus 12u QHS. 3. History of PE: Eliquis 4. Sleep Apnea: CPAP 5. HTN: Procardia 6. Dementia: Aricept 7. DVT Prophylaxis: Eliquis 8. Advanced Directives: Full Code 9. Dysphagia/Coughing: regular textures & thin liquids, 10. Insomnia and depression: on celexa. Seroquel 50mg qhs . 09/27/18 20:10
[2018-09-27] MEDS: Latanoprost 0.005%* 2.5 ml BTL BOTH EYES SCH (21:22)
[2018-09-27] MEDS: PTO - Liraglutide (NF) 18 MG/3 ML SUBCUT SCH (21:22)
[2018-09-27] MEDS: QUEtiapine TAB* 25 MG PO SCH (21:23)
[2018-09-27] MEDS: Insulin GLARGINE(*) 1 UNITS UNIT SUBCUT SCH (21:44)
[2018-09-28] MEDS: Acetaminophen TAB* 325 MG PO PRN (00:39)
[2018-09-28] MEDS: Levothyroxine TAB* 100 MCG TAB PO SCH (06:26)
[2018-09-28] MEDS: Meclizine TAB* 12.5 MG PO SCH (06:26)
[2018-09-28 06:28] VITALS: BP 154/71
[2018-09-28] MEDS: Insulin LISPRO* 1 UNITS UNIT SUBCUT SCH (08:18)
[2018-09-28] MEDS: NIFEdipine ER TAB* 60 MG PO SCH (08:52)
[2018-09-28] MEDS: Docusate CAP* 100 MG PO SCH (08:52)
[2018-09-28] MEDS: Aspirin EC TAB* 81 MG TAB.EC PO SCH (08:52)
[2018-09-28] MEDS: Donepezil TAB* 5 MG PO SCH (08:53)
[2018-09-28] MEDS: Citalopram TAB* 20 MG PO SCH (08:53)
[2018-09-28] MEDS: glipiZIDE TAB.XL* 2.5 MG PO SCH (08:53)
[2018-09-28] MEDS: Pantoprazole TAB * 40 MG TAB PO SCH (08:53)
[2018-09-28] MEDS: Apixaban* 2.5 MG TAB PO SCH (08:53)
[2018-09-28] MEDS: ValACYclovir (*) 500 MG TAB PO SCH (08:53)
[2018-09-28] MEDS: prednisoLONE 1% OPHTH.SUSP* 5 ML OPHTH.SUSP BOTH EYES SCH (08:55)
--- NOTE | 2018-09-28 14:13 | DS ---
CC: Dr. Marisa Nash DISCHARGE SUMMARY: DATE OF ADMISSION: 09/20/18 DATE OF DISCHARGE: 09/28/18 DISCHARGE DIAGNOSES: 1. Right pontine and medullary stroke. 2. History of deep venous thrombosis, remote. 3. Diabetes mellitus. 4. Sleep apnea. 5. History of 2 previous strokes. 6. Early dementia. HISTORY OF ILLNESS AND HOSPITAL COURSE: For complete history of the events leading up to her rehab stay, please see the history and physical dictated by me on 09/20/18. While on the rehab unit, the patient's Antivert was lowered from 25 mg every 8 hours to 12.5 mg every 8 hours. The patient initially was doing well with her swallowing. The patient's blood sugars were under fairly good control. Her glipizide was added back in and her Victoza was added back in. Her metformin was held. The patient otherwise was fairly stable from a medical point of view. She was maintained on Eliquis for her history of DVT as well as for DVT prophylaxis. The patient was seen by Speech Therapy. She was felt to be aspirating. She had a video fluoroscopy on 09/25/18, which seemed to suggest she aspirated thin liquids, nectar thick liquids and honey thick liquids. As a result, her diet was changed to pudding thick liquids. She was allowed free water through the Shine free water protocol. The patient had another video fluoroscopy on 09/27/18 that seemed to show that she was not aspirating any textures. Her diet was changed back to regular consistencies and thin liquids. The patient was seen by Physical and Occupational Therapy and made good gains with both disciplines. With physical therapy at the time of admission, the patient required min assist to do a transfer. She was able to ambulate 75 feet with min assist. With occupational therapy at the time of admission, the patient required min assist for lower body dressing, min assist for bathing, contact guard for toileting. By the time of discharge, the patient was supervision with transfers, supervision ambulating and supervision for toileting and toilet transfers. She did require min assist to do lower body ADLs. Her was brought in for family training prior to discharge. He agreed that he would be able to provide the supervision and assistance. The patient was able to ambulate over 150 feet at discharge and go up and down stairs with supervision. The patient was discharged home 09/28/18. DISCHARGE DIET: Consistent carbohydrate, thin liquids. DISCHARGE MEDICATIONS: 1. Eliquis 2.5 mg twice daily. 2. Aspirin 81 mg daily. 3. Celexa 20 mg daily. 4. Aricept 10 mg daily. 5. Glipizide XL 2.5 mg daily. 6. Xalatan eye drops 1 drop to both eyes at bedtime. 7. Victoza 1.8 mg subcutaneously at bedtime. 8. Antivert 12.5 mg 3 times a day. 9. Nifedipine XL 60 mg daily. 10. Pravachol 20 mg daily. 11. Pred Forte eye drops 1 drop each eye daily. 12. Valtrex 500 mg every other day. 13. Synthroid 100 mcg daily. 14. Omeprazole 20 mg daily. 15. Niacin 500 mg daily. 16. Magnesium oxide 250 mg 3 times a day. SERVICES AFTER DISCHARGE: Through [facility] and out of [facility], the patient will have home nursing, home physical therapy, home occupational therapy and home speech therapy. Follow up with her primary care doctor, Dr. Marisa Nash in [place] in 2 to 3 weeks. TIME SPENT: Time for this discharge was approximately 55 minutes, greater than half of that was spent with the patient and her reviewing post-rehab medications, therapies and follow up appointments. [id number]/[id number] #: [id number] MTDD
== END 2018-09-28 11:50 | disposition home health service (06) | DRG 57 ==
LOC: PMRU 13:44
PROVIDERS: ADMIT Physical Medicine & Rehabilitation; ATTEND Physical Medicine & Rehabilitation
PROC: F07Z5ZZ Bed Mobility Treatment (ICD-10-PCS; principal; 2018-09-20)
PROC: F07Z9ZZ Gait Training/Functional Ambulation Treatment (ICD-10-PCS; 2018-09-20)
PROC: F07Z8ZZ Transfer Training Treatment (ICD-10-PCS; 2018-09-20)
PROC: F08Z0ZZ Bathing/Showering Techniques Treatment (ICD-10-PCS; 2018-09-20)
PROC: F08Z1ZZ Dressing Techniques Treatment (ICD-10-PCS; 2018-09-20)
PROC: F08Z3ZZ Feeding/Eating Treatment (ICD-10-PCS; 2018-09-20)
PROC: F06ZDZZ Swallowing Dysfunction Treatment (ICD-10-PCS; 2018-09-20)
DX: I69.351 Hemiplegia and hemiparesis following cerebral infarction affecting right dominant side (principal); I69.391 Dysphagia following cerebral infarction; R13.10 Dysphagia, unspecified; E11.9 Type 2 diabetes mellitus without complications; F03.90 Unspecified dementia, unspecified severity, without behavioral disturbance, psychotic disturbance, mood disturbance, and anxiety; G47.30 Sleep apnea, unspecified; I10 Essential (primary) hypertension; F32.9 Major depressive disorder, single episode, unspecified; E03.9 Hypothyroidism, unspecified; G47.00 Insomnia, unspecified; F51.9 Sleep disorder not due to a substance or known physiological condition, unspecified; Z86.718 Personal history of other venous thrombosis and embolism; Z79.01 Long term (current) use of anticoagulants; Z86.711 Personal history of pulmonary embolism; Z86.73 Personal history of transient ischemic attack (TIA), and cerebral infarction without residual deficits; Z79.4 Long term (current) use of insulin; Z79.899 Other long term (current) drug therapy; Z88.1 Allergy status to other antibiotic agents; Z88.5 Allergy status to narcotic agent; Z88.0 Allergy status to penicillin; Z88.8 Allergy status to other drugs, medicaments and biological substances; Z87.891 Personal history of nicotine dependence; Z99.89 Dependence on other enabling machines and devices
CPT/HCPCS: 36415; 74230; 80053; 85025; A9270-GY; J3420

== ENCOUNTER 2018-12-08 10:42 | Inpatient (IN) | payer MEDICARE, BC ==
[2018-12-08] MEDS ORDERED: NS 0.9% 1000 ML** 1,000 ML IV ONE (10:46)
--- NOTE | 2018-12-08 10:51 | ED ---
Neurological HPI - HPI Summary HPI Summary: Patient is a 72 y/o F presenting to ED with complaints of left facial droop, slurred speech and left leg weakness per EMS. EMS reports that the patient went to bed last night, 12/07/18, with no symptoms. At 0330 of 12/08/18, she awoke with Sx present, decided to call EMS later in the morning. Patient notes that in the morning, when she got up to go to the bathroom, she had difficulty walking. PMHx of stroke x2 reported, last stroke was in August of 2018, patient was evaluated at [facility] for this. Patient claims that she has some residual left facial droop from her past strokes. She claims that she is unsure if her facial droop is worse today. 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 Hx of HTN, diabetes, DVT, patient is on Eliquis and ASA daily. EMS 12 lead EKG showed NSR, EMS BG was 202. No Hx of afib nor seizures. Patient lives with her who will come to ED. Home medications and allergies are reviewed. After CTA, patient was taken to room to have NIH done by neurologist. is present in the room at this time. He notes that when patient woke, she appeared confused, had slurred speech, and difficulty walking. However, he notes that the patient was aware of where she was and that she recognized her . He also states that the patient had difficulty holding coffee with her left hand and notes that the patient is left handed. Patient has never taken plavix, is on ASA daily. The patient and also note that the patient has been "kicking" her right leg in her sleep for the past month and has experienced "extreme" right hip pain for the past two weeks. No recent falls reported. PCP, Dr. Nash, saw patient yesterday, 12/07/18, for right hip pain, x-ray was done and was normal. Patient was given oxycodone and tramadol. She notes that she took tramadol yesterday only. 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 No Hx of diabetes retinopathy. PMHx of bleeding ulcer reported as well. 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 In room, pulse 74, o2 96, BP 132/ 78. Aj cespedes called at 1022 ART THERAPIST of EMS, Dr. Vasquez, neurologist, paged at 1027. Spoke with Dr. Vasquez's PIER MASTER at 1039, patient arrived at 1041, provider in to evaluate patient immediately at this time, preliminary NIH initiated at 1042, initial NIH was 6, Dr. Vasquez in ED to evaluate patient at 1045, notes that CTA should be gotten immediately, patient to CT at 1045. Dr. Villa in room at [address] Vasquez to evaluate Brain CT, no obvious bleed, CTA completed at 1101, no obvious clot. Dr. Viramontes communicated Brain CT results over phone at 1109. Neurologist NIH was finished at 1115, patient scored NIH of 9. Brain CTA report noted to be done at 1126. Home Medications Aspirin EC TAB* [Ecotrin EC Low Dose 81 MG*] 81 mg PO DAILY 12/08/18 [History Confirmed 12/08/18] Cyclobenzaprine TAB* [Flexeril 10 MG TAB*] 10 mg PO TID PRN 12/08/18 [History Confirmed 12/08/18] Docusate CAP* [Colace Cap*] 100 mg PO BID PRN 12/08/18 [History Confirmed ] Insulin Glargine,Hum.rec.anlog [Lantus Solostar 5x3 ML PENS] 12 units SUBCUT DAILY MDD 30 units 12/08/18 [History Confirmed 12/08/18] Levothyroxine TAB* [Synthroid TAB*] 100 mcg PO DAILY 12/08/18 [History Confirmed 12/08/18] Metformin ER (NF) [Glucophage ER 750 MG TAB (NF)] 750 mg PO DAILY WITH MEAL [History Confirmed 12/08/18] Niacinamide [Niacin] 500 mg PO DAILY 12/08/18 [History Confirmed 12/08/18] Omeprazole CAP (NF) [Prilosec CAP* 20 MG] 20 mg PO BID WITH MEALS 12/08/18 [ History Confirmed 12/08/18] Polyethylene Glycol 3350* [Miralax*] 17 gm PO DAILY 12/08/18 [History Confirmed 12/08/18] Pravastatin (NF) [Pravachol (NF)] 20 mg PO DAILY 12/08/18 [History Confirmed ] oxyCODONE/Acetamin 5/325 MG* [Percocet 5/325 TAB*] 1 tab PO BID PRN 12/08/18 [ History Confirmed 12/08/18] traMADol TAB* [Ultram*] 50 - 100 mg PO Q6HR PRN 12/08/18 [History Confirmed ] Allergies Allergy/AdvReac Type Severity Reaction Status Date / Time CHRIST Inhibitors Allergy Coughing Verified 09/16/18 12:57 clarithromycin [From Biaxin] Allergy Diarrhea Verified 09/16/18 12:57 morphine Allergy Hives Verified 09/16/18 12:57 naproxen [From Naprosyn] Allergy Diarrhea Verified 09/16/18 12:57 Penicillins Allergy Anaphylatic Verified 09/16/18 12:57 Shock - History of Current Complaint Stated Complaint: CODE SEARS PER EMS Hx Obtained From: Patient, 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 - , EMS, Medical Records Onset/Duration: Started hours ago - Sx first noted at 0330 today, 12/08/18, Still Present Timing: Constant Current Severity: Severe - 8/10 on triage Neurological Deficit Location: Facial - left droop, LUE - per , difficulty holding coffee, LLE - weakness Pain Intensity: 8 Pain Scale Used: 0-10 Numeric - 8/10 Character: Motor Weakness - left leg, left facial droop, Impaired Speech Aggravating: Nothing Alleviating: Nothing Associated Signs and Symptoms: Positive: Weakness - left face, left leg, Impaired Speech - Additional Pertinent History Primary Care Physician: [id number] - Allergy/Home Medications Allergies/Adverse Reactions: Allergies Allergy/AdvReac Type Severity Reaction Status Date / Time CHRIST Inhibitors Allergy Coughing Verified 09/16/18 12:57 clarithromycin [From Biaxin] Allergy Diarrhea Verified 09/16/18 12:57 morphine Allergy Hives Verified 09/16/18 12:57 naproxen [From Naprosyn] Allergy Diarrhea Verified 09/16/18 12:57 Penicillins Allergy Anaphylatic Verified 09/16/18 12:57 Shock Home Medications: Home Medications Aspirin EC TAB* [Ecotrin EC Low Dose 81 MG*] 81 mg PO DAILY 12/08/18 [History Confirmed 12/08/18] Cyclobenzaprine TAB* [Flexeril 10 MG TAB*] 10 mg PO TID PRN 12/08/18 [History Confirmed 12/08/18] Docusate CAP* [Colace Cap*] 100 mg PO BID PRN 12/08/18 [History Confirmed ] Insulin Glargine,Hum.rec.anlog [Lantus Solostar 5x3 ML PENS] 12 units SUBCUT DAILY MDD 30 units 12/08/18 [History Confirmed 12/08/18] Levothyroxine TAB* [Synthroid TAB*] 100 mcg PO DAILY 12/08/18 [History Confirmed 12/08/18] Metformin ER (NF) [Glucophage ER 750 MG TAB (NF)] 750 mg PO DAILY WITH MEAL [History Confirmed 12/08/18] Niacinamide [Niacin] 500 mg PO DAILY 12/08/18 [History Confirmed 12/08/18] Omeprazole CAP (NF) [Prilosec CAP* 20 MG] 20 mg PO BID WITH MEALS 12/08/18 [ History Confirmed 12/08/18] Polyethylene Glycol 3350* [Miralax*] 17 gm PO DAILY 12/08/18 [History Confirmed 12/08/18] Pravastatin (NF) [Pravachol (NF)] 20 mg PO DAILY 12/08/18 [History Confirmed ] oxyCODONE/Acetamin 5/325 MG* [Percocet 5/325 TAB*] 1 tab PO BID PRN 12/08/18 [ History Confirmed 12/08/18] traMADol TAB* [Ultram*] 50 - 100 mg PO Q6HR PRN 12/08/18 [History Confirmed ] PMH/Surg Hx/FS Hx/Imm Hx Endocrine/Hematology History: Reports: Hx Diabetes, Hx Thyroid Disease Cardiovascular History: Reports: Hx Hypertension Denies: Hx Coronary Artery Disease, Hx Pacemaker/ICD Respiratory History: Reports: Hx Chronic Obstructive Pulmonary Disease (COPD) GI History: Reports: Other GI Disorders - Hernia History: Reports: Other Problems/Disorders - incontinent Denies: Hx Renal Disease Musculoskeletal History: Reports: Other Musculoskeletal History - bilateral shoulder surgeries Sensory History: Reports: Hx Cataracts - cataract removal, Hx Contacts or Glasses Denies: Hx Hearing Aid Opthamlomology History: Reports: Hx Cataracts - cataract removal, Hx Contacts or Glasses Neurological History: Reports: Other Neuro Impairments/Disorders - Stroke Psychiatric History: Reports: Hx Depression Denies: Hx Panic Disorder - Cancer History Cancer Type, Location and Year: precancerous condition, hysterectomy - Surgical History Surgery Procedure, Year, and Place: hysterectomy. bilateral shoulder surgeries. appendix. 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 Eyes: Conjunctiva clear ENT: Normal inspection Neck: Supple, no nodes, no JVD Respiratory: Lungs clear, normal breath sounds, no respiratory distress Cardio: RRR, No murmur, pulses normal, brisk capillary refill Abdomen: Soft, nontender Bowel sounds: Present Musculoskeletal: No calf tenderness, no edema. Psychological: Normal Neuro: See NIH; NIH of 9, GCS 15 Triage Information Reviewed: Yes Vital Signs On Initial Exam: Initial Vitals Temp Pulse Resp BP Pulse Ox 98.6 F 70 18 187/83 93 12/08/18 10:50 12/08/18 10:50 12/08/18 10:50 12/08/18 10:50 12/08/18 10:50 Vital Signs Reviewed: Yes - [place] Coma Scale Best Eye Response: 4 - Spontaneous Best Motor Response: 6 - Obeys Commands Best Verbal Response: 5 - Oriented Coma Scale Total: 15 Diagnostics - Laboratory Result Diagrams: 12/08/18 10:44 12/08/18 10:44 Lab Statement: Any lab studies that have been ordered have been reviewed, and results considered in the medical decision making process. - Radiology CHEST X-RAY Radiology Interpretation Completed By: Radiologist Summary of Radiographic Findings: IMPRESSION: NO ACTIVE CARDIOPULMONARY DISEASE. THIS REPORT WAS REVIEWED BY DR. VILLA. - CT BRAIN CT CT Interpretation Completed By: Radiologist Summary of CT Findings: BRAIN CT IMPRESSION: 1. AGAIN NOTED IS OCCLUSION OF THE RIGHT POSTERIOR CEREBRAL ARTERY, STABLE. 2. AGAIN NOTED IS INTRACRANIAL ATHEROSCLEROSIS MOST PRONOUNCED ALONG THE MIDDLE CEREBRAL. ARTERIES WITHOUT HIGH-GRADE STENOSIS OR OTHER OCCLUSION. 3. NO INTERNAL CAROTID ARTERY STENOSIS BY NASCET CRITERIA.. THIS REPORT WAS REVIEWED BY DR. VILLA. HEAD CTA CT Interpretation Completed By: Radiologist Summary of CT Findings: IMPRESSION: 1. AGAIN NOTED IS OCCLUSION OF THE RIGHT POSTERIOR CEREBRAL ARTERY, STABLE. 2. AGAIN NOTED IS INTRACRANIAL ATHEROSCLEROSIS MOST PRONOUNCED ALONG THE MIDDLE CEREBRAL. ARTERIES WITHOUT HIGH-GRADE STENOSIS OR OTHER OCCLUSION. 3. NO INTERNAL CAROTID ARTERY STENOSIS BY NASCET CRITERIA.. THIS REPORT WAS REVIEWED BY DR. VILLA. RIGHT HIP CT CT Interpretation Completed By: Radiologist Summary of CT Findings: RIGHT HIP CT IMPRESSION: Degenerative changes of the right hip without definite fracture of the right. hip or pelvis. THIS REPORT WAS REVIEWED BY DR. VILLA. - EKG 1124 Cardiac Rate: NL - rate of 70 BPM EKG Rhythm: Sinus Rhythm ST Segment: Non-Specific Ectopy: PVCs EKG Comparison: No Significant Change - compared with EKG from 09/19/18 Summary of EKG Findings: EKG showed sinus rhythm with rate of 70 BPM, normal AVCT, normal IVCT, normal QTc, normal axis, PVCs, old posterior infract, Non- specific ST. NIH Scale - NIH Scale Level of Consciousness: Alert/Keenly Responsive Ask Patient the Month and His/Her Age: Both Correct Ask Pt to Open/Close Eyes and Piercer/Release Non-Paretic Hand: One Correctly Best Gaze (Only Horizontal Eye Movement): Normal Visual Field Testing: No Visual Loss Facial Paresis-Pt to Smile & Close Eyes or Grimace Symmetry: Partial Paralysis Motor Function - Right Arm: Effort Against [place] Motor Function - Left Arm: No Drift-Holds 10 Seconds Motor Function - Right Leg: Effort Against [place] Motor Function - Left Leg: No Drift-Holds 10 Seconds Limb Ataxia-Must be out of Proportion to Weakness Present: Absent Sensory (Use Pinprick to Test Arms/Legs/Trunk/Face): Pinprick Less on Affected Best Language (Describe Picture, Name Items): No Aphasia Dysarthria (Read Several Words): Slurs Some Words Extinction and Inattention: No Abnormality Total Score: 9 Re-Evaluation - Re-Evaluation First Eval Re-Evaluation Time: 10:49 Comment: In CT room with Dr. Vasquez to evaluate patient's brain CT Second Eval Re-Evaluation Time: 11:03 Comment: Patient to room to have NIH done by neurologist. Course/Dx - Course Course Of Treatment: Patient is a 72 y/o F presenting to ED with complaints of left facial droop, slurred speech and left leg weakness per EMS. EMS reports that the patient went to bed last night, 12/07/18, with no symptoms. At 0330 of , she awoke with Sx present, decided to call EMS later in the morning. Patient notes that in the morning, when she got up to go to the bathroom, she had difficulty walking. PMHx of stroke x2 reported, last stroke was in August of 2018, patient was evaluated at [facility] for this. Patient claims that she has some residual left facial droop from her past strokes. She claims that she is unsure if her facial droop is worse today as she did not look in the mirror this morning. 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 Hx of HTN, diabetes, DVT, patient is on Eliquis and ASA daily. EMS 12 lead EKG showed NSR, EMS BG was 202. No Hx of afib nor seizures. On physical exam, NIH is 9, GCS 15. Patient is noted to be ill-appearing with left facial droop. Code cespedes called at 1022 ART THERAPIST of EMS, Dr. Vasquez, neurologist, paged at 1029. Spoke with Dr. Vasquez PA/PIER MASTER at 1039, patient arrived at 1041, provider in to evaluate patient immediately at this time, preliminary NIH initiated at 1042, initial NIH was 6, Dr. Vasquez in ED to evaluate patient at 1045, notes that CTA should be gotten immediately, patient to CT at 1045. Dr. Villa in room at [address] Vasquez to evaluate Brain CT, no obvious bleed, CTA completed at 1101, no obvious clot. Patient's whole NIH was finished at 1115, patient scored NIH of 9. Brain CTA report noted to be done at 1126. After CTA, patient was taken to room to have neurologist NIH done. is present in the room at this time. He notes that when patient woke, she appeared confused, had slurred speech, and difficulty walking. However, he notes that the patient was aware of where she was and that she recognized her . He also states that the patient had difficulty holding coffee with her left hand and notes that the patient is left handed. Patient has never taken plavix, is on ASA daily. The patient and also note that the patient has been "kicking" her right leg in her sleep for the past month and has experienced "extreme" right hip pain for the past two weeks. No recent falls reported. PCP, Dr. Nash, saw patient yesterday, 12/07/18, for right hip pain, x-ray was done and was normal. Patient was given oxycodone and tramadol. She notes that she took tramadol yesterday only. 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 No Hx of diabetes retinopathy. PMHx of bleeding ulcer reported as well. BRAIN CT IMPRESSION: NO ACUTE INTRACRANIAL PATHOLOGY. CHRONIC SMALL VESSEL ISCHEMIC CHANGES WITH REMOTE RIGHT INFARCT. CXR IMPRESSION : NO ACTIVE CARDIOPULMONARY DISEASE. HEAD CTA IMPRESSION: 1. AGAIN NOTED IS OCCLUSION OF THE RIGHT POSTERIOR CEREBRAL ARTERY, STABLE. 2. AGAIN NOTED IS INTRACRANIAL ATHEROSCLEROSIS MOST PRONOUNCED ALONG THE MIDDLE CEREBRAL. ARTERIES WITHOUT HIGH-GRADE STENOSIS OR OTHER OCCLUSION. 3. NO INTERNAL CAROTID ARTERY STENOSIS BY NASCET CRITERIA. EKG showed sinus rhythm with rate of 70 BPM, normal AVCT, normal IVCT, normal QTc, normal axis, PVCs, old posterior infract, Non-specific ST, compared with EKG from 09/19/18, no significant change. RIGHT HIP CT IMPRESSION: Degenerative changes of the right hip without definite fracture of the right. hip or pelvis. Labs showed INR 1.07, APTT 38.5, chloride 100, creatinine 1.16, glucose 237, lactic acid 1.5, trop 0.01, triglycerides 361, cholesterol 175, LDL cholesterol 70, HDL cholesterol 32.6. Patients case was discussed with Dr. Barajas at 1130, Dr. Barajas accepts for admission. Dr. Vasquez recommends EEG, MRI for patient and that the patient be given Plavix. During ED course, patient was given fluids, Plavix 75 mg. - Diagnoses Provider Diagnoses: Neurological deficit present During the Visit The Following Alert/Code Occurred: Code Sears - Code cespedes called at 1022 ART THERAPIST of EMS, Dr. Vasquez, neurologist, paged at 1027. Spoke with Dr. Vasquez's PIER MASTER at 1039, patient arrived at 1041, provider in to evaluate patient immediately at this time, preliminary NIH initiated at 1042, initial NIH was 6, Dr. Vasquez in ED to evaluate patient at 1045, notes that CTA should be gotten immediately, patient to CT at 1045. Dr. Villa in room at [address] Vasquez to evaluate Brain CT, no obvious bleed, CTA completed at 1101, no obvious clot. Dr. Viramontes communicated Brain CT results over phone at 1109. Neurologist NIH was finished at 1115, patient scored NIH of 9. Brain CTA report noted to be done at 1126. - Physician Notifications Discussed Care Of Patient With: Audi Vasquez Time Discussed With Above Provider: 10:45 Instructed by Provider To: Other - Dr. Vasquez in ED to evaluate patient at 1045 , notes that CTA should be gotten immediately, patient to CT at 1045. Dr. Villa in room at [address] Vasquez to evaluate Brain CT, no obvious bleed, CTA completed at 1101, no obvious clot. Patient was brought back to room, whole NIH done by Dr. Vasquez. Dr. Viramontes communicated brain CT results at 1110. Brain CTA report noted to be done at 1126. 1130 - Patient's case was discussed with Dr. Barajas, Dr. Barajas accepts for admission. Dr. Vasquez recommends Plavix , MRI, and EEG. - Critical Care Time Critical Care Time: 30-74 min - 45 minutes CCT Discharge - Sign-Out/Discharge Documenting (check all that apply): Patient Departure - admit All imaging exams completed and their final reports reviewed: Yes Patient Received Moderate/Deep Sedation with Procedure: No - Discharge Plan Condition: Good Disposition: ADMITTED TO [facility] - Attestation Statements Document Initiated by Scribe: Yes Documenting Scribe: ELIZABETH AWAN Provider For Whom Scribe is Documenting (Include Credential): DALE VILLA MD Scribe Attestation: ELIZABETH Mcgarry, scribed for DALE VILLA MD on 12/08/18 at 1428.
[2018-12-08 11:06] LABS: ABS Basophils 0.1 10^3/ul (0-0.2); ABS Eosinophils 0.3 10^3/ul (0-0.6); ABS Lymphocytes 2.2 10^3/ul (1.0-4.8); ABS Monocytes 0.6 10^3/ul (0-0.8); ABS Neutrophils 5.4 10^3/ul (1.5-7.7); ABS Nucleated RBC 0 10^3/ul; Eosinophil % 3.9 %; Hematocrit 39 % (33-41); Hemoglobin 12.7 g/dL (12.0-16.0); Lymphocyte % 25.7 %; Mean Corpuscular HGB Conc 33 g/dL (31-36); Mean Corpuscular Hemoglobin 29 pg (27-31); Mean Corpuscular Volume 87 fL (80-97); Mean Platelet Volume 8.5 fL (7.4-10.4); Nucleated Red Blood Cells % 0; Platelet Count 191 10^3/uL (150-450); Red Blood Count 4.46 10^6 /uL (3.70-4.87); Red Cell Distribution Width 14 % (10.5-15); White Blood Count 8.6 10^3/uL (3.5-10.8)
[2018-12-08] MEDS ORDERED: Iodixanol* (CONTRAST) 320 MG/ML 100 ML SDV IV ONE (11:12)
[2018-12-08 11:17] LABS: Activated Partial Thrombo Time 38.5 seconds (26.0-36.3); INR 1.07 (0.77-1.02)
[2018-12-08 11:24] LABS: Troponin I 0.01 ng/mL (<0.04)
[2018-12-08] MEDS ORDERED: Clopidogrel TAB* 75 MG PO ONE (11:34)
[2018-12-08 11:45] LABS: Albumin 3.7 g/dL (3.2-5.2); Albumin/Globulin Ratio 1.2 (1-3); BUN/Creatinine Ratio 17.2 (8-20); Calcium 9.5 mg/dL (8.6-10.3); EGFR African American 55.7 (>60); EGFR Non-African American 46.1 (>60); HDL Cholesterol 32.6 mg/dL; Potassium 4.4 mmol/L (3.5-5.0); Total Bilirubin 0.4 mg/dL (0.2-1.0); Total Protein 6.7 g/dL (6.4-8.9)
[2018-12-08] MEDS ORDERED: Ondansetron INJ* 2 MG/ML VIAL IV PRN (12:37)
[2018-12-08] MEDS ORDERED: oxyCODONE/Acetamin 5/325 MG* TAB PO PRN (12:39)
[2018-12-08] MEDS ORDERED: Dextrose 50% Syringe 50 ML* 25 GM/50 ML SYRINGE IV PUSH PRN (12:47)
--- NOTE | 2018-12-08 14:28 | CONS ---
NEUROLOGY CONSULTATION: DATE OF CONSULT: 12/08/18 REFERRING PHYSICIAN: Dr. Zaina Peralta. PRIMARY CARE PROVIDER: LOCATION: She is in the emergency room to be admitted. CHIEF COMPLAINT: Left-sided weakness. HISTORY OF PRESENT ILLNESS: Elizabeth Duran is a 72-year-old left-handed woman, who went to bed last night at about 10:15. She awoke this morning, was confused and very weak. Her had to help her to get to the breakfast table. She could not hold the cup of coffee in her left hand. Her speech was slurred. She recalls waking up and being confused and weak. An ambulance was summoned and she was brought into the emergency room. In the emergency room, she was noted to have left- sided weakness and slurred speech. Aj Stratton was called and she was sent for a CT of the brain, which I reviewed the images of, and was interpreted as showing multiple old small vessel infarctions, but no hemorrhage or evidence of acute infarctions. A CT angiogram of the brain was also obtained and was interpreted as showing an occluded right posterior cerebral artery, which was chronic from last admission in August. There was also intracranial atherosclerosis most pronounced along the middle cerebral arteries without high-grade stenosis or occlusion. There was no significant internal carotid artery stenosis. She has a history of diabetes and hypertension. She was hospitalized on when she presented with new-onset right-sided weakness and dizziness resulting in a fall. She has been on Eliquis for 2 years for a deep vein thrombosis apparently with recurrence. She was evaluated by Dr. 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 She had a drift of the right arm and past pointing with the right arm and dysmetria with [id number] on the right leg. She subsequently had an MRI scan of the brain, which revealed a right posterior medullary acute infarction. She had multiple old infarctions and it included right posterior cerebral artery at that time. There was evidence of hemoglobin breakdown products in old right basal ganglia infarction on spin-weighted imaging. Her notes that her speech is better than it was when she woke up and also her left-sided weakness is improving according to her first evaluation when she hit the emergency room. PAST MEDICAL HISTORY: Notable for diabetes; multiple strokes; obstructive sleep apnea, on CPAP; pulmonary embolus; deep vein thrombosis, on life-long anticoagulation according to Dr. Ann's admission note of August 2018. 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 PAST SURGICAL HISTORY: She has had a hysterectomy in the past with precancerous lesions, hernia, appendectomy. She has had bilateral shoulder pinning. MEDICATIONS: At home, include: 1. Eliquis, which she says she did take this morning. 2. She is on insulin. 3. Aspirin 81 mg p.o. q. day. 4. Seroquel 100 mg at bedtime. 5. Omeprazole 20 mg p.o. q. day. 6. Nifedipine extended release 60 mg q. day. 7. Citalopram 20 mg p.o. q. day. 8. Colace. 9. B12 injections 1000 mcg monthly. 10. Tramadol, which she just started yesterday, 50 mg q.6 hours as needed for hip pain. 11. Glipizide. 12. Victoza. 13. Metformin. 14. Niacin. 15. Pravastatin. 16. Donepezil 5 mg p.o. q. day. 17. Levothyroxine. 18. Cyclobenzaprine 10 mg p.o. t.i.d. as needed for hip pain, which was just started recently. ALLERGIES: She has listed as having allergies to CHRIST INHIBITORS which caused coughing, CLARITHROMYCIN caused diarrhea, MORPHINE caused hives, NAPROXEN caused diarrhea, PENICILLINS caused shock. REVIEW OF SYSTEMS: The patient is mainly notable for 2 weeks of right hip pain. She said she was evaluated with x-rays and told there are no fractures. She started pain medicine recently because of it. She has not had any recent falls. Her legs kicked violently in her sleep at night according to her for a couple of months at least. She denies any history of seizures. Her notes that she sleeps a lot in general. No recent infections or fevers. No change in vision recently. She did not bite her tongue or lose control of her bladder when she woke up this morning. She says she takes her medications on a very regular basis. PHYSICAL EXAM: She is an overweight woman lying in the emergency room [facility]. Blood pressure is 187/83, temperature 98.6, heart rate in the 70s and in sinus on the monitor. Respiratory rate is 18 and oxygen saturation is 93% on room air. Neurological Exam: Pupils are small at about 2.5 mm and react to light at 2 mm. Funduscopic exam reveals silver wiring bilaterally, but I do not see any hemorrhages. Visual naranjo are full to confrontation. There is no ptosis. Eye movements are somewhat saccadic particularly going from right to left, but appear full. Facial musculature is notable for left lower facial weakness. Facial sensation to light touch and pin is reported as symmetric. Speech is dysarthric and palate pulls to the left with phonation. Tongue protrudes slightly to the left with protrusion. Motor exam is limited by pain in the right hip. She can raise the left leg off the bed and hold it there, but it drifts ultimately. She has a drift at the left arm, but does have antigravity strength. The right arm seems reasonably strong. Finger taps are clumsy in both hands. She is not able to do a heel-to- paez with the left leg because of weakness. She is able to do a gkvd-bi-vbde with the right leg, but it produces a lot of hip pain, but seems accurate. Sensation in the extremities is notable for decreased pin discrimination in the left arm, but symmetrical pin discrimination in the legs. She has bilateral Babinski signs. She is alert and oriented. There is no aphasia. She is able to tell us her age and how long she and her have been . DIAGNOSTIC STUDIES/LAB DATA: Notable for imaging, which includes a CT of the brain, which I reviewed and the CT angiogram. Reports are listed above. Blood tests so far, her CBC is back and within normal limits. Chemistry profile is still pending. IMPRESSION AND PLAN: Impression is that of new cerebrovascular accident. Her prior episodes have all been small vessel or larger vessel penetrating infarctions. I suspect the same mechanism is at play at this point. She is not a tPA candidate with last known well being at 10:15 last night. She is not a thrombectomy candidate without any evidence of a large vessel occlusion. I recommend temporarily treating her with Plavix plus aspirin in addition to her Eliquis. There is no evidence of active bleeding or recent history of GI bleeding, but clearly the combination will increase bleeding risks in general. My plan would be to have her on the dual-antiplatelet therapy for perhaps 20 days and then switch back to aspirin with her Eliquis. She should have an MRI scan of the brain. She should have an echocardiogram. Her lipid profile is pending and her statin may need to be adjusted based on the results. Her glucose should be controlled as well. For now, her blood pressure should be treated with permissive hypertension. She should be kept hydrated. I will continue to follow along with you post her NIH Stroke score subsequently. [id number]/[facility] #: [id number] PAULINE
[2018-12-08 15:17] LABS: Urine Appearance Clear; Urine Bilirubin Negative (Negative); Urine Blood Negative (Negative); Urine Color Straw; Urine Glucose Negative (Negative); Urine Ketones Negative (Negative); Urine Nitrite Negative (Negative); Urine Protein Negative (Negative); Urine Specific Gravity 1.021 (1.010-1.030); Urine Urobilinogen Negative (Negative)
[2018-12-08] MEDS: Meclizine TAB* 12.5 MG PO SCH ×2 (15:33→20:34)
[2018-12-08] MEDS: Magnesium Oxide TAB* 400 MG PO SCH ×2 (15:33→20:34)
[2018-12-08] MEDS: Cyclobenzaprine TAB* 10 MG PO PRN (15:37)
--- NOTE | 2018-12-08 16:48 | HP ---
CC: Dr. Nash; Dr. Audi Vasquez * ADMISSION HISTORY AND PHYSICAL: DATE OF ADMISSION: 12/08/18 PRIMARY CARE PROVIDER: Dr. Nash. MY ATTENDING WHILE IN THE HOSPITAL: Dr. Jolene Brunson.* (DICTATED BY ASHLEY ABREU) CONSULTING NEUROLOGIST: Dr. Audi Vasquez. CHIEF COMPLAINT: Weakness x10 hours. HISTORY OF PRESENT ILLNESS: Ms. Duran is a 72-year-old female with past medical history significant for history of 3 CVAs, most recently in August of this year; diabetes mellitus, type 2; obstructive sleep apnea; history of multiple PEs and DVTs, on life-long anticoagulation, who presents to the emergency department after having approximately 2 weeks of cramping pain in her right leg making it very difficult to move around with negative x-rays and no response to oxycodone. The patient saw her primary care provider yesterday and was prescribed tramadol and took 1 dose. The patient was feeling except for this in her normal state of health. The patient has not had any recent illnesses or any changes in her medications except for the tramadol and addition of cyclobenzaprine several weeks ago. The patient woke up at 3:30 and had a very difficult time going to the bathroom based on what she thought was right leg weakness. The patient described the pain as cramping, nonradiating, located in her right hip. The patient was able to get to the bathroom, went back to sleep, and woke up again at 6:30. The patient at that time still had difficulty walking and felt weak all over. She was able to walk from her bedroom to the kitchen, but then was unable to grasp a coffee cup in her left hand. Out of concern for new stroke, the patient came into the emergency department. The patient has not had any recent syncope. The patient did have one fall recently, which she fell on to her knees when trying to reach for something and associated this with pain in her left leg. The patient has not had any loss of consciousness and any involuntary movements except for movements of kicking in her right leg at night which she associates with the spasms that she has had. The patient had no difficulty swallowing. The patient in the emergency department has been unable to urinate despite the fact that she feels like she needs to. The patient has been compliant with her CPAP and has general good control of her blood sugars with her blood sugar being 197 in the morning before her admission. The patient was seen by Neurology in the emergency department, had no large vessel occlusion, and was out of the window for tPA, so we were asked to evaluate the patient for admission to the hospital. PAST MEDICAL HISTORY: CVA x3; diabetes mellitus, type 2; obstructive sleep apnea; PE and DVT, recurrent; hypertension; depression; hypothyroidism. PAST SURGICAL HISTORY: Hysterectomy, hernia, appendectomy, bilateral shoulder pinning. MEDICATIONS: 1. Vitamin B12 1000 mcg intramuscularly monthly. 2. Vitamin D3 2000 units p.o. daily. 3. Valacyclovir 1000 mg p.o. every other day. 4. Magnesium oxide 250 mg. 5. Travatan 0.004% one drop both eyes at bedtime. 6. Quetiapine 100 mg p.o. at bedtime. 7. Apixaban 2.5 mg p.o. b.i.d. 8. Aspirin 81 mg p.o. daily. 9. Citalopram 20 mg p.o. daily. 10. Donepezil 10 mg p.o. daily. 11. Glipizide 2.5 mg p.o. daily. 12. Victoza 1.8 mg subcutaneous at bedtime. 13. Meclizine 12.5 mg p.o. q.8 hours as needed. 14. Nifedipine 60 mg p.o. daily. 15. Prednisolone 1% one drop both eyes daily as needed. 16. Omeprazole 20 mg p.o. b.i.d. with meals. 17. MiraLAX 17 g p.o. daily. 18. Docusate 100 mg p.o. b.i.d. as needed. 19. Percocet 1 tab p.o. b.i.d. as needed. 20. Cyclobenzaprine 10 mg p.o. t.i.d. as needed. 21. Pravastatin 20 mg p.o. daily. 22. Niacin 500 mg p.o. daily. 23. Synthroid 100 mcg p.o. daily. 24. Metformin ER 750 mg p.o. daily with meal. 25. Insulin glargine 12 units subcutaneous daily. 26. Tramadol 200 mg p.o. q.6 hours as needed for pain. ALLERGIES: CHRIST INHIBITORS, CLARITHROMYCIN, MORPHINE, NAPROXEN, PENICILLINS. FAMILY HISTORY: The patient's mother of a stroke. The patient's father of an aneurysm. The patient has a sister, who of stroke and a brother who of an aneurysm. SOCIAL HISTORY: The patient has a remote history of smoking. She cannot quantify her pack-year history. The patient drinks alcohol occasionally, has never used illicit drugs. 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 The patient is and has 3 children. The patient's surrogate decision maker is her , Grayson Duran. REVIEW OF SYSTEMS: A 14-point review of systems was reviewed with the patient and is negative except as above in the HPI. PHYSICAL EXAMINATION GENERAL: The patient is a 72-year-old female, who appears stated age and sitting in bed, in no acute distress. VITAL SIGNS: Temperature 97.6, pulse rate 74, respiratory rate 14, oxygen saturation 92% on room air, blood pressure 149/74. HEENT: Head: Normocephalic, atraumatic. Sclerae anicteric. No conjunctival injection. Nasal mucosa moist. Oral mucosa moist. No pharyngeal erythema, discharge, or exudate. NECK: Supple, nontender. No lymphadenopathy. No carotid bruits auscultated. No JVD. RESPIRATORY: Clear to auscultation bilaterally. No wheezes, rales, or rhonchi. Good air exchange bilaterally. CARDIAC: Regular rate and rhythm. No clicks, murmurs, gallops, or rubs. Pulses are 2+ in the bilateral dorsalis pedis, posterior tibial, and radial areas. ABDOMEN: Soft, nontender, nondistended. Bowel sounds present and normoactive in all 4 quadrants. No hepatosplenomegaly. No abdominal bruits auscultated. No hepatojugular reflux. GENITOURINARY: No suprapubic or CVA tenderness. NEURO: Right-sided facial droop, forehead wrinkles. Symmetrically eyes are able to be closed to force, 4/5 strength with head rotation and shoulder elevation. Palate elevates symmetrically. Tongue protrudes in the midline. Hearing normal. EXTREMITIES: Strength 4/5 in the right upper extremity, 4-/5 in the left upper extremity throughout. Strength 4-/5 in the right lower extremity, strength 3/5 in the left lower extremity. Bqyk-tj-[id number] unable to be performed. Finger-to- nose performed without difficulty. Finger taps symmetrical bilaterally. PSYCHIATRIC: Pleasant and cooperative. SKIN: Clean, dry, and intact. No rash. DIAGNOSTIC STUDIES/LAB DATA: White blood cell count 8.6, hemoglobin 12.7, platelet count 191. INR 1.07, aPTT 38.5. Sodium 136, potassium 4.4, chloride 100, carbon dioxide 27, anion gap 9, BUN 20, creatinine 1.16, glucose 237, lactic acid 1.5, calcium 9.5. Bilirubin 0.4, AST 15, ALT 12, alkaline phosphatase 83. Troponin I 0.01. Protein 6.7, albumin 3.7, globulin 3.0. cholesterol 175, LDL cholesterol 70, HDL cholesterol 32.6. Studies: Brain CT read as no acute intracranial abnormality, chronic small vessel ischemic changes with remote right infarct. Chest x-ray read no active cardiopulmonary disease. Head CTA read as again no evidence of occlusion and right posterior cerebral artery stable. There was intracranial atherosclerosis most pronounced along the middle cerebral arteries without high-grade stenosis or other occlusion. No internal carotid stenosis by NASCET criteria. Pelvis CT read as degenerative changes of the right hip without definitive fracture. Electrocardiogram read as normal sinus rhythm and frequent PVCs, normal axis, no ST- segment elevation or depression, no hypertrophy or enlargement. Compared to previous exam, there are no significant changes. ASSESSMENT AND PLAN: Impression: Ms. Duran is a 72-year-old female with past medical history significant for 3 cerebrovascular accidents; diabetes mellitus, type 2; obstructive sleep apnea; history of pulmonary embolism and deep venous thrombosis, unprovoked and recurrent, who presents to the emergency department with difficulty ambulating and left-sided weakness since 3:30 this morning. The patient was not a tPA candidate and will be admitted to the hospital for evaluation of weakness including evaluation for a new cerebrovascular accident or seizure due to previous stroke history. 1. Left-sided weakness. The patient has right and left-sided weakness, left being more prominent, the patient is hyperreflexic on her left side compared to the right. The patient is severely limited by pain in her right side. The patient has what appears to be a right-sided facial droop, is unclear whether this is chronic, but she does not report a history of this based on the crossed findings. This could represent a brain stem stroke, which could be consistent with the patient's history of posterior circulation occlusion. We will obtain an MRI; however, the patient was recently started on tramadol, which could have possibly provoked these symptoms. The patient does have a history of 3 strokes including right-sided remote infarct which could be a focus for seizures. The patient will have an EEG and a seizure medication will be started if appropriate. The patient does not have new large vessel occlusion. The patient 's LDL is at goal. We will continue the patient's niacin as outpatient for increasing of her HDL. The patient will be evaluated by Physical Therapy and Occupational Therapy. The patient recently had an echocardiogram without patent foramen ovale, so will not be repeated. The patient will be monitored on telemetry for atrial fibrillation. The patient will be on aspirin, Plavix, pravastatin and Eliquis. The patient's Eliquis will be continued due to history of recurrent deep venous thrombosis given the patient has failed aspirin and it might be prudent to change the patient to aspirin monotherapy with her Eliquis at 1 month. The patient will have her nifedipine held for permissive hypertension. 2. Right hip pain. This is of unclear cause. She described it as spasming. The patient has degenerative changes in this hip. The patient's pelvis CT was negative for fracture. The patient's exam is severely limited by pain. The patient will be seen in consultation by Physical and Occupational Therapy. The patient will have pain control with oxycodone given above concern for adverse reaction from tramadol at increased dose from her home dose, which was ineffective for her. Given the spasming nature of the patient's pain, we will also continue with cyclobenzaprine and baclofen may be tried. The patient has no back pain or radiation of her pain. MRI of the hip and/or Orthopedic consultation should be considered if the patient's pain fails to be able to be controlled with medications or improve while in the hospital. 3. Diabetes mellitus, type 2. We will check an A1c. The patient will be maintained on insulin subcu while in the hospital. The patient's Victoza, glipizide, and metformin will be held. The patient has chronic kidney disease and received contrast, so cautioned should be used with resuming her metformin at discharge. The patient will be started on fluids due to this and for blood pressure support to perfuse possible infarction. Continue the patient's home CPAP. 4. History of deep venous thrombosis/pulmonary embolism. Continue the patient' s Eliquis, renally dose. 5. Permissive hypertension. Continue citalopram. 6. DVT prophylaxis: Eliquis. 7. FEN: The patient will have a heart-healthy diet after she is able to pass a swallow evaluation. The patient will have fluids 100 mL an hour as above. 8. Disposition: The patient will be admitted to observation for cerebrovascular accident. TIME SPENT: Approximately 60 minutes was spent on the admission of this patient , 30 of which was spent [id number] with the patient obtaining history and physical and discussing treatment plan. This plan was discussed with my attending, Dr. Jolene Brunson, and she is in agreement. ASHLEY ABREU [id number]/[facility] #: [id number] MTDD
--- NOTE | 2018-12-08 16:48 | CONS ---
NEUROLOGY CONSULTATION: ADDENDUM: HOSPITALIST: Mo Schreiber. The patient is currently in the emergency room to be admitted. Addendum to the initial consultation on Elizabeth Duran. Her NIH score was 8 on my evaluation in the emergency room. She scored 2 points for left arm motor, 1 for facial palsy, 1 for left leg motor, 2 for limb ataxia, 1 for sensory. I will continue to follow her along. [id number]/[facility] #: [id number] PAULINE
[2018-12-08] MEDS: Insulin LISPRO* 1 UNITS UNIT SUBCUT SCH ×2 (16:56→20:43)
[2018-12-08] MEDS: NS 0.9% 1000 ML** 1,000 ML IV SCH (16:56)
--- NOTE | 2018-12-08 19:56 | HP ---
CC: Dr. Marisa Nash; Dr. Audi Vasquez HISTORY AND PHYSICAL: ADDENDUM: DATE OF ADMISSION: 12/08/18 PRIMARY CARE PROVIDER: Dr. Marisa Nash. CONSULTING NEUROLOGIST: Dr. Audi Vasquez. The case was reviewed and discussed with ASHLEY Barbour. Mrs. Duran is a 72-year-old female with a past medical history of CVA x3; type 2 diabetes; obstruct navneet sleep apnea; PE and DVT, on anticoagulation; hypertension; depression; and hypothyroidism, who pr esented to the emergency room with complaints of left-sided weakness. The patient went to bed around 10 last night feeling well, and she woke up around 3:30 in the morning, could not get up from her be d. Her initial CT in the emergency room was negative and her CTA of the head showed known right [employer] occlusion, but no new large vessel occlusion that would warrant intervention. The patient was seen in consultation by Neurology (Dr. Vasquez), and at the time of his evaluation, t he patient's NIH stroke scale was 8, and his recommendation was to add Plavix to her aspirin and Eliq uis. She has no evidence of active bleeding or recent history of GI bleeding, but she is aware that this will increase her bleeding risk in general. His plan at this time is to continue dual-antiplate let therapy for maybe 20 days and then switch her back to just aspirin and Eliquis. The patient will be admitted for further workup. I am in agreement with the current management. [id number]/[facility] #: [id number]
[2018-12-08] MEDS: QUEtiapine TAB* 100 MG PO SCH (20:33)
[2018-12-08] MEDS: Apixaban* 2.5 MG TAB PO SCH (20:34)
[2018-12-08] MEDS: Pantoprazole TAB * 40 MG TAB PO SCH (20:34)
[2018-12-08] MEDS: Docusate CAP* 100 MG PO PRN (20:44)
[2018-12-08] MEDS: oxyCODONE/Acetamin 5/325 MG* TAB PO PRN (22:37)
[2018-12-09] MEDS ORDERED: Polyethylene Glycol 3350* 17 GM PACKET PO PRN (00:14)
[2018-12-09] MEDS: NS 0.9% 1000 ML** 1,000 ML IV SCH ×2 (03:58→14:29)
[2018-12-09] MEDS: Levothyroxine TAB* 100 MCG TAB PO SCH (05:20)
[2018-12-09] MEDS: Meclizine TAB* 12.5 MG PO SCH ×3 (05:20→22:09)
[2018-12-09 05:45] LABS: ABS Basophils 0.1 10^3/ul (0-0.2); ABS Eosinophils 0.1 10^3/ul (0-0.6); ABS Monocytes 0.6 10^3/ul (0-0.8); ABS Neutrophils 7.6 10^3/ul (1.5-7.7); ABS Nucleated RBC 0 10^3/ul; Eosinophil % 0.9 %; Hematocrit 35 % (33-41); Hemoglobin 11.7 g/dL (12.0-16.0); Lymphocyte % 19.1 %; Mean Corpuscular HGB Conc 33 g/dL (31-36); Mean Corpuscular Hemoglobin 29 pg (27-31); Mean Corpuscular Volume 87 fL (80-97); Mean Platelet Volume 8.6 fL (7.4-10.4); Nucleated Red Blood Cells % 0; Platelet Count 194 10^3/uL (150-450); Red Blood Count 4.06 10^6 /uL (3.70-4.87); Red Cell Distribution Width 14 % (10.5-15); White Blood Count 10.4 10^3/uL (3.5-10.8)
[2018-12-09 06:05] LABS: BUN/Creatinine Ratio 15.1 (8-20); Calcium 8.9 mg/dL (8.6-10.3); EGFR African American 61.8 (>60); EGFR Non-African American 51.1 (>60); Magnesium 1.8 mg/dL (1.9-2.7); Potassium 4.2 mmol/L (3.5-5.0)
[2018-12-09] MEDS: Polyethylene Glycol 3350* 17 GM PACKET PO SCH (08:36)
[2018-12-09] MEDS: Insulin LISPRO* 1 UNITS UNIT SUBCUT SCH ×4 (08:38→22:09)
[2018-12-09] MEDS: Magnesium Oxide TAB* 400 MG PO SCH ×3 (08:40→22:09)
[2018-12-09] MEDS: Clopidogrel TAB* 75 MG PO SCH (08:40)
[2018-12-09] MEDS: Apixaban* 2.5 MG TAB PO SCH ×2 (08:40→22:09)
[2018-12-09] MEDS: Donepezil TAB* 5 MG PO SCH (08:40)
[2018-12-09] MEDS: Aspirin EC TAB* 81 MG TAB.EC PO SCH (08:40)
[2018-12-09] MEDS: Citalopram TAB* 20 MG PO SCH (08:40)
[2018-12-09] MEDS: Pantoprazole TAB * 40 MG TAB PO SCH ×2 (08:40→22:09)
[2018-12-09] MEDS ORDERED: Atorvastatin* 10 MG TAB PO SCH (09:00)
[2018-12-09] MEDS ORDERED: Insulin GLARGINE(*) 1 UNITS UNIT SUBCUT SCH (09:00)
[2018-12-09] MEDS: oxyCODONE/Acetamin 5/325 MG* TAB PO PRN ×2 (10:57→19:13)
--- NOTE | 2018-12-09 10:57 | PN ---
Subjective Date of Service: 12/09/18 Interval History: Ms. Duran reports that she continues to have dizziness and weakness. Her biggest complaint is of right hip pain. She reports having chronic right hip pain that comes and goes but has been much worse recently. She denies fall or injury. She is able to weight bear on the R extremity. Objective Active Medications: Acetaminophen (Tylenol Tab*) 650 mg PO Q6H PRN Apixaban (Eliquis*) 2.5 mg PO BID [facility] Aspirin (Aspirin Ec Tab*) 81 mg PO DAILY [facility] Atorvastatin Calcium (Lipitor*) 5 mg PO DAILY [facility]; Protocol Citalopram Hydrobromide (Celexa Tab*) 20 mg PO DAILY [facility] Clopidogrel Bisulfate (Plavix Tab*) 75 mg PO DAILY [facility] Cyclobenzaprine HCl (Flexeril Tab*) 10 mg PO TID PRN Dextrose (D50w Syringe 50 Ml*) 12.5 gm IV PUSH .FOR FS < 60 - SS PRN Docusate Sodium (Colace Cap*) 100 mg PO BID PRN Sodium Chloride (Ns 0.9% 1000 Ml) 1,000 mls @ 100 mls/hr IV PER RATE [facility] Insulin Glargine (Lantus(*)) 12 units SUBCUT DAILY [facility] Insulin Human Lispro (Humalog*) 0 units SUBCUT ACHS [facility]; Protocol Levothyroxine Sodium (Synthroid Tab*) 100 mcg PO 0600 [facility] Magnesium Oxide (Magox 400 Tab*) 400 mg PO TID [facility] Meclizine HCl (Antivert Tab*) 12.5 mg PO Q8HR [facility] Ondansetron HCl (Zofran Inj*) 4 mg IV Q6H PRN Oxycodone/Acetaminophen (Percocet 5/325 Tab*) 1 tab PO Q4H PRN Pantoprazole Sodium (Protonix Tab*) 40 mg PO BID [facility] Polyethylene Glycol/Electrolytes (Miralax*) 17 gm PO DAILY [facility] Polyethylene Glycol/Electrolytes (Miralax*) 17 gm PO DAILY PRN Quetiapine Fumarate (Seroquel Tab*) 100 mg PO BEDTIME [facility] Vital Signs: Temp Pulse Resp BP Pulse Ox 97.7 F 75 18 140/69 96 12/09/18 07:21 12/09/18 07:21 12/09/18 07:21 12/09/18 07:21 12/09/18 08:00 Oxygen Devices in Use Now: None Appearance: Female sitting up in bed in NAD Eyes: No Scleral Icterus Ears/Nose/Mouth/Throat: Mucous Membranes Moist Neck: Trachea Midline Respiratory: Symmetrical Chest Expansion and Respiratory Effort, Clear to Auscultation Cardiovascular: NL Sounds; No Murmurs; No JVD, No Edema Abdominal: NL Sounds; No Tenderness; No Distention Lymphatic: No Cervical Adenopathy Extremities: No Edema Skin: No Rash or Ulcers Neurological: Alert and Oriented x 3, - Result Diagrams: 12/09/18 05:04 12/09/18 05:04 Assess/Plan/Problems-Billing Assessment: Ms. 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 At that time,echo showed no PFO - Continue aspirin, eliquis, plavix (added this admission) and atorvastin (dose increased, autosub from pravastatin) - PT/OT/ Speech (2) Right hip pain Comment: - Pelvic CT showing degenerative changes only - Continue PT/OT. (3) DM II (diabetes mellitus, type II), controlled Comment: - BGs 230-260, A1c 7.2 - Increase Lantus and continue lispro SS with meals (4) HTN (hypertension) Comment: - SBP 130-160s - Not on anti-hypertensives outpatient (5) MARLINE (obstructive sleep apnea) Comment: - Continue PPV (6) HLD (hyperlipidemia) Comment: - Continue atorvastatin (7) History of pulmonary embolism Comment: - Unprovoked, on indefinite anticoagulation (8) DVT prophylaxis Comment: - Eliquis (9) Full code status Comment: Status and Disposition: Switch from OBV to Inpatient with need for continued monitoring, therapy and likely rehab placement.
[2018-12-09] MEDS: Cyclobenzaprine TAB* 10 MG PO PRN (16:08)
[2018-12-09] MEDS: Acetaminophen TAB* 325 MG PO PRN (16:09)
[2018-12-09] MEDS: QUEtiapine TAB* 100 MG PO SCH (22:09)
[2018-12-10] MEDS: NS 0.9% 1000 ML** 1,000 ML IV SCH (01:16)
[2018-12-10] MEDS: Levothyroxine TAB* 100 MCG TAB PO SCH (05:31)
[2018-12-10] MEDS: Meclizine TAB* 12.5 MG PO SCH ×3 (05:31→20:33)
--- NOTE | 2018-12-10 06:45 | PN ---
CC: Dr. Jordy Shabazz; Dr. Vasquez; Dr. 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 She and her indicate she was on aspirin with her Eliquis and may have missed some doses as she ran out prior to her original stroke in August 2018 for which she was seen by Dr. Shabazz for right medulla stroke. She improved, went to rehab, and was discharged on apixaban with aspirin 81 mg. Unfortunately, she now returns with a right pontine stroke with left-sided weakness. She has also had difficulty with pain with right hip movement in the last three weeks. Her MRI on this visit shows a new right pontine stroke and this film was reviewed directly. 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 Dr. Vasquez and Dr. Montague added Plavix to her regiment for double antiplatelet therapy of the small vessel stroke in the setting of her being on chronic Eliquis for her PE and DVT. She has had some bleeding per rectum from her hemorrhoids with bright red blood on the tissue. There has been no other bleeding. She denies any nosebleeds or significant issue with bruising. She thinks that she might be slightly worse since coming in. PAST MEDICAL HISTORY: Her past medical history was reviewed including diabetes type 2; sleep apnea, on CPAP. She has been asking her to bring in her machine. She has a history of DVT and PE. There is a history of depression. 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 She does have a family history of her mother and sister who had strokes and her father and brother with aneurysm. She smoked in the past, occasionally drinks alcohol. Her is Grayson Duran and they have 3 children. MAR: reviewed PHYSICAL EXAMINATION: Most recent vitals include blood pressure of 151/76, pulse was 84 and regular, respiratory rate 18, saturation was 96% on room air and temperature was 98.5 degrees Fahrenheit. She had a regular cardiac rhythm. Her lungs were clear to auscultation. There was no evidence of peripheral edema. She did have pain with movement of her right hip that went from her hip to knee region. No rash was noted. She was awake and alert. She had full extraocular movements with no nystagmus, full naranjo to confrontation. Her facial expressions showed slight left central seventh. There was slight dysarthria. She had left pronator drift. She gave good resistance in her arms and legs with the exception of proximal left arm 4+ and proximal left leg at 4+/ 5. She felt that there was some decrease sharp in the left leg compared to the right. Reflexes were 2+ in the upper extremities and 1+ at the knees, absent at the ankles. Toes were up going bilaterally. She did transfer from a commode when I was in the room and was able to stand up on her own power, although, was very careful in turning, and had myself and her present. DIAGNOSTIC STUDIES/LAB DATA: Recent data includes CBC within normal white count , hemoglobin was slightly low at 11.7, normal hematocrit, normal platelets. Metabolic panel showed an elevated creatinine of 1.06, her glucose continues to be elevated, hemoglobin A1c was 9.1. Magnesium was 1.8. As mentioned above, her CTA was reviewed. MRI of the brain was reviewed directly. 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 Plavix was added to her regimen for 20 days. After 20 days, Plavix will be stopped. There is significant risk of bleeding with 2 antiplatelet agents and Eliquis. Education was given regarding the significant risk of bleeding and the importance of supervision with standing and transferring. If she falls or hits her head, there would be a significant risk of bleeding. If there is any any significant bleeding prior to 20 days, we will need to change this regimen. Education was given regarding complicated treatment decisions, pros and cons of medications, risk of bleed, and importance of avoiding falls and asking for help for transfers, risk of further stroke and prognosis and stroke. Her is bringing her CPAP, so she can treat her sleep apnea which is a risk factor for stroke. She definitely needs a closer control of her diabetes, may benefit from nutritional consult. She is on statin low dose and I would suggest a higher dose in the setting of repeat strokes in the small vessel distribution. She will need speech and swallow therapy given her difficulty with swallowing water along with PT and OT with rehab evaluation. TIME SPENT: Over 45 minutes was spent in direct [id number] patient care, over 50% of the time was spent in education, counseling, regarding above issues. All questions were answered. [id number]/[facility] #: [id number] PAULINE
[2018-12-10] MEDS ORDERED: Insulin GLARGINE(*) 1 UNITS UNIT SUBCUT SCH (09:00)
[2018-12-10] MEDS: Polyethylene Glycol 3350* 17 GM PACKET PO SCH (09:04)
[2018-12-10] MEDS: Apixaban* 2.5 MG TAB PO SCH ×2 (09:06→20:33)
[2018-12-10] MEDS: CMC:Pravastatin (NF) 20 MG TAB PO SCH (09:06)
[2018-12-10] MEDS: Aspirin EC TAB* 81 MG TAB.EC PO SCH (09:06)
[2018-12-10] MEDS: Magnesium Oxide TAB* 400 MG PO SCH ×3 (09:06→20:34)
[2018-12-10] MEDS: Pantoprazole TAB * 40 MG TAB PO SCH ×2 (09:06→20:34)
[2018-12-10] MEDS: Donepezil TAB* 5 MG PO SCH (09:06)
[2018-12-10] MEDS: Docusate CAP* 100 MG PO PRN (09:07)
[2018-12-10] MEDS: Clopidogrel TAB* 75 MG PO SCH (09:07)
[2018-12-10] MEDS: Citalopram TAB* 20 MG PO SCH (09:07)
[2018-12-10] MEDS: oxyCODONE/Acetamin 5/325 MG* TAB PO PRN ×3 (09:09→17:24)
[2018-12-10] MEDS: Acetaminophen TAB* 325 MG PO PRN (09:09)
[2018-12-10] MEDS: Cyclobenzaprine TAB* 10 MG PO PRN ×2 (09:09→13:18)
[2018-12-10] MEDS: Insulin LISPRO* 1 UNITS UNIT SUBCUT SCH ×4 (09:10→20:34)
--- NOTE | 2018-12-10 11:28 | PN ---
Subjective Date of Service: 12/10/18 Interval History: Ms. Duran reports feeling tired today and having persistent right hip pain. The hip pain started 3 weeks ago without any provoking incident. She describes pain in the groin that radiates down the front of her leg. The pain is worst when lying down. She has frequent muscle spasms. She initially feels that she is "back to baseline" but on further exam she does note that her left arm is weak. Her does not think that she has a real facial asymmetry but she appears to have a left facial droop. Objective Active Medications: Acetaminophen (Tylenol Tab*) 650 mg PO Q6H PRN Apixaban (Eliquis*) 2.5 mg PO BID [facility] Aspirin (Aspirin Ec Tab*) 81 mg PO DAILY [facility] Citalopram Hydrobromide (Celexa Tab*) 20 mg PO DAILY [facility] Clopidogrel Bisulfate (Plavix Tab*) 75 mg PO DAILY [facility] Cyclobenzaprine HCl (Flexeril Tab*) 10 mg PO TID PRN Dextrose (D50w Syringe 50 Ml*) 12.5 gm IV PUSH .FOR FS < 60 - SS PRN Docusate Sodium (Colace Cap*) 100 mg PO BID PRN Donepezil HCl (Aricept Tab*) 10 mg PO DAILY [facility] Insulin Glargine (Lantus(*)) 14 units SUBCUT DAILY [facility] Insulin Human Lispro (Humalog*) 0 units SUBCUT ACHS [facility]; Protocol Levothyroxine Sodium (Synthroid Tab*) 100 mcg PO 0600 [facility] Magnesium Oxide (Magox 400 Tab*) 400 mg PO TID [facility] Meclizine HCl (Antivert Tab*) 12.5 mg PO Q8HR [facility] Ondansetron HCl (Zofran Inj*) 4 mg IV Q6H PRN Oxycodone/Acetaminophen (Percocet 5/325 Tab*) 1 tab PO Q4H PRN Pantoprazole Sodium (Protonix Tab*) 40 mg PO BID [facility] Polyethylene Glycol/Electrolytes (Miralax*) 17 gm PO DAILY [facility] Polyethylene Glycol/Electrolytes (Miralax*) 17 gm PO DAILY PRN Pravastatin Sodium (Pravachol (Nf)) 20 mg PO DAILY [facility]; Protocol Quetiapine Fumarate (Seroquel Tab*) 100 mg PO BEDTIME [facility] Vital Signs: Temp Pulse Resp BP Pulse Ox 97.5 F 61 16 155/87 97 12/10/18 07:35 12/10/18 11:26 12/10/18 11:26 12/10/18 11:26 12/10/18 11:26 Oxygen Devices in Use Now: None Appearance: Female sitting up in chair in NAD Eyes: No Scleral Icterus Ears/Nose/Mouth/Throat: Mucous Membranes Moist Neck: Trachea Midline Respiratory: Symmetrical Chest Expansion and Respiratory Effort, Clear to Auscultation Cardiovascular: NL Sounds; No Murmurs; No JVD, No Edema Abdominal: NL Sounds; No Tenderness; No Distention Extremities: No Edema Skin: No Rash or Ulcers Neurological: Alert and Oriented x 3, - - L UE weakness with pronator drift, left facial droop Nutrition: Taking PO's Result Diagrams: 12/09/18 05:04 12/09/18 05:04 Assess/Plan/Problems-Billing Assessment: Ms. Duran is a 72 yo F with a PMH of 3 CVAs, DM, MARLINE, hx DVT/PE, and hypertension who was admitted 12/08/18 for CVA with finding of a right pontine infarct. 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 At that time,echo showed no PFO - Continue aspirin, eliquis, plavix (added this admission) and atorvastin (dose increased, autosub from pravastatin) - PT/OT/ Speech - PMRU referral (2) Right hip pain Comment: - Pelvic CT showing degenerative changes only, ? tendonitis - Continue PT/OT. - Consult to Ortho pending (Frantz) given atypical and persistent pain, anticipate they will see her tomorrow - Continue pain meds and anti-spasmodics (3) DM II (diabetes mellitus, type II), controlled Comment: - BGs 160-280s, A1c 7.2 - Increase Lantus and increase lispro SS with meals (4) HTN (hypertension) Comment: - SBP 130-160s - Not on anti-hypertensives outpatient (5) MARLINE (obstructive sleep apnea) Comment: - Continue PPV (6) HLD (hyperlipidemia) Comment: - Continue atorvastatin (7) History of pulmonary embolism Comment: - Unprovoked, on indefinite anticoagulation (8) DVT prophylaxis Comment: - Marcel (9) Full code status Comment: Status and Disposition: Inpatient, will need rehab placement, PMRU consulted.
--- NOTE | 2018-12-10 11:38 | PN ---
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 Shabazz), diabetes mellitus type II, history of DVT and PE on chronic anticoaguation on eliquis, sleep apnea, hypertension who presents with left sided weakness consistent with findings on MRI Brain of right pontine stroke. She was on Eliquis and asa on admission. Dr. Vasquez added Plavix to her regiment for 20 days. Today is day 2 of 20. She would like to have candy, however her who is at bedside has discussed with her diet change. She denies new numbness, weakness, change in vision. She continues to have right hip pain which increases with movement. Medications: Acetaminophen (Tylenol Tab*) 650 mg PO Q6H PRN PRN Reason: FEVER/PAIN Last Admin: 12/10/18 09:09 Dose: 650 mg Apixaban (Eliquis*) 2.5 mg PO BID [facility] Last Admin: 12/10/18 09:06 Dose: 2.5 mg Aspirin (Aspirin Ec Tab*) 81 mg PO DAILY [facility] Last Admin: 12/10/18 09:06 Dose: 81 mg Citalopram Hydrobromide (Celexa Tab*) 20 mg PO DAILY [facility] Last Admin: 12/10/18 09:07 Dose: 20 mg Clopidogrel Bisulfate (Plavix Tab*) 75 mg PO DAILY [facility] Last Admin: 12/10/18 09:07 Dose: 75 mg Cyclobenzaprine HCl (Flexeril Tab*) 10 mg PO TID PRN PRN Reason: SPASMS Last Admin: 12/10/18 09:09 Dose: 10 mg Dextrose (D50w Syringe 50 Ml*) 12.5 gm IV PUSH .FOR FS < 60 - SS PRN PRN Reason: FS < 60 Docusate Sodium (Colace Cap*) 100 mg PO BID PRN PRN Reason: CONSTIPATION Last Admin: 12/10/18 09:07 Dose: 100 mg Donepezil HCl (Aricept Tab*) 10 mg PO DAILY [facility] Last Admin: 12/10/18 09:06 Dose: 10 mg Insulin Glargine (Lantus(*)) 14 units SUBCUT DAILY [facility] Last Admin: 12/10/18 09:10 Dose: 14 units Insulin Human Lispro (Humalog*) 0 units SUBCUT ACHS [facility]; Protocol Last Admin: 12/10/18 09:10 Dose: 3 units Levothyroxine Sodium (Synthroid Tab*) 100 mcg PO 0600 [facility] Last Admin: 12/10/18 05:31 Dose: 100 mcg Magnesium Oxide (Magox 400 Tab*) 400 mg PO TID [facility] Last Admin: 12/10/18 09:06 Dose: 400 mg Meclizine HCl (Antivert Tab*) 12.5 mg PO Q8HR [facility] Last Admin: 12/10/18 05:31 Dose: 12.5 mg Ondansetron HCl (Zofran Inj*) 4 mg IV Q6H PRN PRN Reason: NAUSEA Oxycodone/Acetaminophen (Percocet 5/325 Tab*) 1 tab PO Q4H PRN PRN Reason: PAIN Last Admin: 12/10/18 09:09 Dose: 1 tab Pantoprazole Sodium (Protonix Tab*) 40 mg PO BID [facility] Last Admin: 12/10/18 09:06 Dose: 40 mg Polyethylene Glycol/Electrolytes (Miralax*) 17 gm PO DAILY [facility] Last Admin: 12/10/18 09:04 Dose: 17 gm Polyethylene Glycol/Electrolytes (Miralax*) 17 gm PO DAILY PRN PRN Reason: CONSTIPATION Last Admin: 12/09/18 01:28 Dose: 17 gm Pravastatin Sodium (Pravachol (Nf)) 20 mg PO DAILY [facility]; Protocol Last Admin: 12/10/18 09:06 Dose: 20 mg Quetiapine Fumarate (Seroquel Tab*) 100 mg PO BEDTIME [facility] Last Admin: 12/09/18 22:09 Dose: 100 mg Examination: Vital Signs - 24 hr 12/09/18 12/09/18 12/09/18 11:19 13:02 15:45 Temperature 98.5 F 97.5 F Pulse Rate 84 74 Respiratory 18 18 20 Rate Blood Pressure 151/76 158/73 (mmHg) O2 Sat by Pulse 96 96 Oximetry 12/09/18 12/09/18 12/09/18 16:08 16:25 18:52 Temperature Pulse Rate Respiratory 18 16 16 Rate Blood Pressure (mmHg) O2 Sat by Pulse Oximetry 12/09/18 12/09/18 12/09/18 19:13 20:00 20:10 Temperature 97.6 F Pulse Rate 73 Respiratory 18 18 Rate Blood Pressure 153/74 (mmHg) O2 Sat by Pulse 100 96 Oximetry 12/09/18 12/09/18 12/10/18 21:34 23:32 03:51 Temperature 97.4 F 96.9 F Pulse Rate 62 64 Respiratory 18 16 16 Rate Blood Pressure 156/58 150/72 (mmHg) O2 Sat by Pulse 98 93 Oximetry 12/10/18 12/10/18 12/10/18 07:35 07:55 09:09 Temperature 97.5 F Pulse Rate 59 Respiratory 16 20 15 Rate Blood Pressure 151/65 (mmHg) O2 Sat by Pulse 94 Oximetry She was awake, alert, had slight dysarthria, however otherwise normal language function. There was a regular cardiac rhythm, lungs were clear to auscultation, there was no carotid bruit, She had full extraocular movements, full naranjo to confrontation, There was a slight left central 7th. There was a left pronator drift. She had weakness in left hand at 4+/5, and left hip flexion at 4+/5 Right side was strong, however there was pain with movement of her right hip. Sensation of light touch was similar between sides. 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 Shabazz), diabetes mellitus type II, history of DVT and PE on chronic anticoaguation on eliquis, sleep apnea, hypertension who presents with left sided weakness consistent with findings on MRI Brain of right pontine ischemic stroke. She was on Eliquis and asa on admission. Dr. Vasquez added Plavix to her regiment for 20 days. Today is day 2 of 20. Risk of bleed is significant on 2 antiplatelet agents with eliquis. It is essential that Plavix is stopped after day 20 (earlier if bleeding). Continued GI prophylaxis is needed. She needs speech and swallow therapy, physical therapy, occupational therapy, and awaits rehabilitation assessment. She previously participated in rehab with success for her right medulla stroke. Discussed the importance of diet change and exercises. She may benefit from further input from quotation checker. brought in CPAP today. She has not had it, and is tired. Discussed importance of CPAP for overall health including reduction of stroke risk. Discussed differential of fatigue. Her chief complaint today was right hip pain. She has had a CT. Heat helps. Orthopedic evaluation is planned. Would suggest a follow up with Dr. Shabazz or Dr. Vasquez within a month of discharge to ensure appropriate ongoing therapy. >30 minutes was spent in direct patient care, > 50% was spent in education and counseling regarding diagnosis, work up, stroke risk factor and risk factor modification, treatment, benefits and risks of treatment. Case discussed with hospitalist Naima Avila NP. Will sign out patient to Dr. Ellington tomorrow so he is aware of Mrs. Duran and her clinical course. No further neurologic work up ordered at this time.
[2018-12-10] MEDS: Pregabalin CAP(*) 25 MG PO SCH (20:34)
[2018-12-10] MEDS: QUEtiapine TAB* 100 MG PO SCH (20:34)
[2018-12-11] MEDS: oxyCODONE/Acetamin 5/325 MG* TAB PO PRN ×2 (04:49→22:11)
[2018-12-11] MEDS: Meclizine TAB* 12.5 MG PO SCH ×3 (05:46→22:12)
[2018-12-11] MEDS: Levothyroxine TAB* 100 MCG TAB PO SCH (05:46)
--- NOTE | 2018-12-11 08:27 | PN ---
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 Previously on Eliquis and ASA and Plavix added for 20 days, day today. Patient reports no change overnight. Tele shows PVCs. She continues to have right hip pain which she notes having for some time. No new issues overnight Objective Active Medications: Acetaminophen (Tylenol Tab*) 650 mg PO Q6H PRN PRN Reason: FEVER/PAIN Last Admin: 12/10/18 09:09 Dose: 650 mg Apixaban (Eliquis*) 2.5 mg PO BID [facility] Last Admin: 12/10/18 20:33 Dose: 2.5 mg Aspirin (Aspirin Ec Tab*) 81 mg PO DAILY [facility] Last Admin: 12/10/18 09:06 Dose: 81 mg Citalopram Hydrobromide (Celexa Tab*) 20 mg PO DAILY [facility] Last Admin: 12/10/18 09:07 Dose: 20 mg Clopidogrel Bisulfate (Plavix Tab*) 75 mg PO DAILY [facility] Last Admin: 12/10/18 09:07 Dose: 75 mg Cyclobenzaprine HCl (Flexeril Tab*) 10 mg PO TID PRN PRN Reason: SPASMS Last Admin: 12/10/18 13:18 Dose: 10 mg Dextrose (D50w Syringe 50 Ml*) 12.5 gm IV PUSH .FOR FS < 60 - SS PRN PRN Reason: FS < 60 Docusate Sodium (Colace Cap*) 100 mg PO BID PRN PRN Reason: CONSTIPATION Last Admin: 12/10/18 09:07 Dose: 100 mg Donepezil HCl (Aricept Tab*) 10 mg PO DAILY [facility] Last Admin: 12/10/18 09:06 Dose: 10 mg Insulin Glargine (Lantus(*)) 16 units SUBCUT DAILY [facility] Insulin Human Lispro (Humalog*) 0 units SUBCUT ACHS [facility]; Protocol Last Admin: 12/10/18 20:34 Dose: 12 units Levothyroxine Sodium (Synthroid Tab*) 100 mcg PO 0600 [facility] Last Admin: 12/11/18 05:46 Dose: 100 mcg Magnesium Oxide (Magox 400 Tab*) 400 mg PO TID [facility] Last Admin: 12/10/18 20:34 Dose: 400 mg Meclizine HCl (Antivert Tab*) 12.5 mg PO Q8HR [facility] Last Admin: 12/11/18 05:46 Dose: 12.5 mg Ondansetron HCl (Zofran Inj*) 4 mg IV Q6H PRN PRN Reason: NAUSEA Oxycodone/Acetaminophen (Percocet 5/325 Tab*) 1 tab PO Q4H PRN PRN Reason: PAIN Last Admin: 12/11/18 04:49 Dose: 1 tab Pantoprazole Sodium (Protonix Tab*) 40 mg PO BID [facility] Last Admin: 12/10/18 20:34 Dose: 40 mg Polyethylene Glycol/Electrolytes (Miralax*) 17 gm PO DAILY [facility] Last Admin: 12/10/18 09:04 Dose: 17 gm Polyethylene Glycol/Electrolytes (Miralax*) 17 gm PO DAILY PRN PRN Reason: CONSTIPATION Last Admin: 12/09/18 01:28 Dose: 17 gm Pravastatin Sodium (Pravachol (Nf)) 20 mg PO DAILY [facility]; Protocol Last Admin: 12/10/18 09:06 Dose: 20 mg Pregabalin (Lyrica Cap(*)) 25 mg PO TID [facility] Last Admin: 12/10/18 20:34 Dose: 25 mg Quetiapine Fumarate (Seroquel Tab*) 100 mg PO BEDTIME [facility] Last Admin: 12/10/18 20:34 Dose: 100 mg Vital Signs 12/10/18 12/10/18 12/10/18 09:09 11:26 11:48 Temperature 97.7 F Pulse Rate 61 Respiratory 15 16 Rate Blood Pressure 155/87 (mmHg) O2 Sat by Pulse 97 Oximetry 12/10/18 12/10/18 12/10/18 12:15 13:18 13:19 Temperature Pulse Rate Respiratory 17 17 17 Rate Blood Pressure (mmHg) O2 Sat by Pulse Oximetry 12/10/18 12/10/18 12/10/18 15:15 16:15 17:24 Temperature 97.4 F Pulse Rate 55 Respiratory 18 14 20 Rate Blood Pressure 153/56 (mmHg) O2 Sat by Pulse 99 Oximetry 12/10/18 12/10/18 12/10/18 19:37 20:00 20:21 Temperature 97.0 F Pulse Rate 65 Respiratory 18 18 18 Rate Blood Pressure 157/73 (mmHg) O2 Sat by Pulse 96 96 Oximetry 12/10/18 12/10/18 12/11/18 20:34 23:13 01:54 Temperature 97.1 F Pulse Rate 58 Respiratory 18 14 16 Rate Blood Pressure 154/65 (mmHg) O2 Sat by Pulse 95 Oximetry 12/11/18 12/11/18 12/11/18 03:12 04:49 06:21 Temperature 97.1 F Pulse Rate 59 Respiratory 16 18 16 Rate Blood Pressure 146/75 (mmHg) O2 Sat by Pulse 97 Oximetry Intake and Output Last 24 Hours 12/09/18 12/10/18 12/11/18 12/12/18 06:59 06:59 06:59 06:59 Intake Total 1058 3640 2740 Output Total 400 175 400 Balance 658 3465 2340 Weight 219 lb 3.2 oz Intake: IV Fluids 818 2020 1020 NS (0.9%) 356 599 1971 Oral 240 1620 1720 Output: Urine 400 175 400 Other: Estimated Void Medium Medium Medium # Bowel Movements 2 Estimated Stool Amount Large # Voids 1 2 Oxygen Devices in Use Now: None Neurology Exam: General: Well nourished, well developed, and in no acute distress, obese HEENT: Normocephalic/atraumatic, sclera anicteric, mucous membranes moist Neck: Supple Chest: Clear to auscultation bilaterally Cardiovascular: Regular rate and rhythm Abdomen: Soft, non-tender/non-distended Extremities: No clubbing, cyanosis, or edema Neurological Findings: Awake, alert, and oriented to person, place, and time. Speech: Fluent with some dysarthria Cranial Nerve: PERRL, EOM intact, VFF, no nystagmus, left facial droop, hearing intact, palate elevates symmetrically, tongue midline Motor: s/s throughout, proximal and distal extremities x4 tone/bulk normal Sensation: intact to LT/PP bilaterally upper and lower extremities Motor: left arm/leg weakness 4+/5. RLE limited exam secondary to pain in the right hipl Deep Tendon Reflex: 2+ symmetric at the Patella, downgoing Babinski Finger to nose, rapid alternating movements intact without tremor Result Diagrams: 12/09/18 05:04 12/09/18 05:04 Assessment/Plan Assessment: 72 year old left handed female with a history of HTN, MARLINE, DM, prior DVT with PE , on Eliquis with new right pontine stroke on MRI with left sided weakness. Previously on Eliquis and ASA and Plavix added for 20 days, now day 11/08 1. Pontine stroke: --Continue Eliquis, ASA. Now on Plavix for 20 days. (DAPT) Watch for any evidence of clinical worsening and repeat CT if concern for bleeding. --Risk factor modification including tighter DM control --CPAP for MARLINE --PT/OT/ST evaluating. Possible acute Rehab admission, decision pending 2. Right hip pain: ortho evaluation planned. Continue heat and PT
[2018-12-11] MEDS: Insulin LISPRO* 1 UNITS UNIT SUBCUT SCH ×4 (09:37→22:10)
[2018-12-11] MEDS: Pregabalin CAP(*) 25 MG PO SCH ×3 (09:37→22:11)
[2018-12-11] MEDS: Pantoprazole TAB * 40 MG TAB PO SCH ×2 (09:40→22:12)
[2018-12-11] MEDS: Magnesium Oxide TAB* 400 MG PO SCH ×3 (09:40→22:11)
[2018-12-11] MEDS: Apixaban* 2.5 MG TAB PO SCH ×2 (09:40→22:11)
[2018-12-11] MEDS: Citalopram TAB* 20 MG PO SCH (09:40)
[2018-12-11] MEDS: Aspirin EC TAB* 81 MG TAB.EC PO SCH (09:40)
[2018-12-11] MEDS: Donepezil TAB* 5 MG PO SCH (09:40)
[2018-12-11] MEDS: Polyethylene Glycol 3350* 17 GM PACKET PO SCH (09:40)
[2018-12-11] MEDS: Clopidogrel TAB* 75 MG PO SCH (09:40)
[2018-12-11] MEDS: Insulin GLARGINE(*) 1 UNITS UNIT SUBCUT SCH (09:41)
[2018-12-11] MEDS: CMC:Pravastatin (NF) 20 MG TAB PO SCH (09:44)
[2018-12-11 10:21] LABS: ABS Basophils 0.1 10^3/ul (0-0.2); ABS Eosinophils 0.5 10^3/ul (0-0.6); ABS Lymphocytes 2.9 10^3/ul (1.0-4.8); ABS Monocytes 0.6 10^3/ul (0-0.8); ABS Neutrophils 5.1 10^3/ul (1.5-7.7); ABS Nucleated RBC 0 10^3/ul; Hematocrit 38 % (33-41); Hemoglobin 12.4 g/dL (12.0-16.0); Lymphocyte % 31.8 %; Mean Corpuscular HGB Conc 33 g/dL (31-36); Mean Corpuscular Hemoglobin 29 pg (27-31); Mean Corpuscular Volume 88 fL (80-97); Mean Platelet Volume 8.5 fL (7.4-10.4); Nucleated Red Blood Cells % 0; Platelet Count 182 10^3/uL (150-450); Red Blood Count 4.28 10^6 /uL (3.70-4.87); Red Cell Distribution Width 14 % (10.5-15); White Blood Count 9.1 10^3/uL (3.5-10.8)
[2018-12-11 10:41] LABS: BUN/Creatinine Ratio 12.2 (8-20); Calcium 9.3 mg/dL (8.6-10.3); EGFR African American 48.4 (>60); Potassium 4.4 mmol/L (3.5-5.0)
--- NOTE | 2018-12-11 11:58 | CONS ---
ORTHOPEDIC CONSULT: DATE OF CONSULT: 12/11/18 ATTENDING PHYSICIAN: Jose Angel Landry MD CHIEF COMPLAINT: Right hip pain. HISTORY OF PRESENT ILLNESS: Mrs. Duran is a 72-year-old female who was admitted on 12/09/18 with a right pontine stroke. She also has been complaining of right hip pain, which has been going on for the past several weeks. She recalls no specific injury nor has she been doing anything differently. She feels it especially when lying in bed and moving the leg. It is a pain that begins in the groin and then comes down the anterior aspect of the thigh. She notes when she is up and moving it is not that bad and she gets around fairly well. I was called yesterday by Naima Avila NP for a consult to see if this is related to the hip joint or if there is anything that can be done to help with the hip. PREVIOUS MEDICAL HISTORY: 1. Diabetes. 2. Sleep apnea. 3. DVT/PE. 4. Depression. 5. Hypertension. 6. Hypothyroidism. PREVIOUS SURGICAL HISTORY: 1. Hysterectomy. 2. Hernia repair. 3. Appendectomy. 4. Corneal implants. 5. Bilateral shoulder surgery. MEDICATIONS: She is on multiple medications on admission. I would direct you to her H and P from 12/09/18. MEDICATION ALLERGIES: CHRIST INHIBITORS, CLARITHROMYCIN, MORPHINE, NAPROSYN, PENICILLIN. FAMILY HISTORY: Noncontributory. SOCIAL HISTORY: She has positive tobacco and positive ETOH history. PHYSICAL EXAM: General: Elderly heavy set female lying in the bed. Right hip : She can easily internally and externally rotate the hip but has a very specific pain with trying to bring the hip up into flexion. Palpation finds no tenderness over the greater trochanter. She has generally good strength with hip flexion, but resisted hip flexion recreates her pain. Similarly passively with hip flexion, she feels it a little bit, but it is much less painful with passive motion of the hip. She has no pain at all with internal rotation and external rotation and trying to force on to further internal and external rotation does not recreate her pain either. DIAGNOSTIC STUDIES/LAB DATA: CAT scan of the hip done here at [facility] is available for review. It could be seen she has mild arthritic changes, but this is not significantly arthritic and would not be a candidate for a hip arthroplasty. ASSESSMENT: Right hip iliopsoas bursitis. PLAN/RECOMMENDATIONS: I discussed with Mrs. Duran that I believe she probably has a bursitis over the anterior aspect of the hip that she feels better with standing and walking would makes sense and that especially in bed trying to lift the leg up recreates her pain also would seem to fit with this. I discussed with her that working with physical therapy bring the leg into extension to stretch the iliopsoas tendon should help with this as can a guided iliopsoas steroid injection. Considering that she may be going to the [facility], then an integrated rehab program will be something they could work on and if it is unsuccessful, then setting her up for a guided injection would be reasonable. [id number]/[facility] #: [id number] PAULINE
--- NOTE | 2018-12-11 15:10 | PN ---
Subjective Date of Service: 12/11/18 Interval History: Sitting in chair eating lunch on assessment. at bedside. Reports continued pain in right hip and upper leg. Continues to experience left sided weakness in upper and lower extremity. notes this is making it difficult for her to feed herself. Reports constipation as last BM Tuesday. Denies cp, palpitations, nausea, vomiting, diarrhea, fever, chills, visual changes, dizziness. Objective Active Medications: Acetaminophen (Tylenol Tab*) 650 mg PO Q6H PRN PRN Reason: FEVER/PAIN Last Admin: 12/10/18 09:09 Dose: 650 mg Apixaban (Eliquis*) 2.5 mg PO BID [facility] Last Admin: 12/11/18 09:40 Dose: 2.5 mg Aspirin (Aspirin Ec Tab*) 81 mg PO DAILY [facility] Last Admin: 12/11/18 09:40 Dose: 81 mg Citalopram Hydrobromide (Celexa Tab*) 20 mg PO DAILY [facility] Last Admin: 12/11/18 09:40 Dose: 20 mg Clopidogrel Bisulfate (Plavix Tab*) 75 mg PO DAILY [facility] Last Admin: 12/11/18 09:40 Dose: 75 mg Cyclobenzaprine HCl (Flexeril Tab*) 10 mg PO TID PRN PRN Reason: SPASMS Last Admin: 12/10/18 13:18 Dose: 10 mg Dextrose (D50w Syringe 50 Ml*) 12.5 gm IV PUSH .FOR FS < 60 - SS PRN PRN Reason: FS < 60 Docusate Sodium (Colace Cap*) 100 mg PO BID PRN PRN Reason: CONSTIPATION Last Admin: 12/10/18 09:07 Dose: 100 mg Donepezil HCl (Aricept Tab*) 10 mg PO DAILY [facility] Last Admin: 12/11/18 09:40 Dose: 10 mg Insulin Glargine (Lantus(*)) 16 units SUBCUT DAILY [facility] Last Admin: 12/11/18 09:41 Dose: 16 units Insulin Human Lispro (Humalog*) 0 units SUBCUT ACHS [facility]; Protocol Last Admin: 12/11/18 13:13 Dose: 15 units Levothyroxine Sodium (Synthroid Tab*) 100 mcg PO 0600 [facility] Last Admin: 12/11/18 05:46 Dose: 100 mcg Magnesium Oxide (Magox 400 Tab*) 400 mg PO TID [facility] Last Admin: 12/11/18 13:14 Dose: 400 mg Meclizine HCl (Antivert Tab*) 12.5 mg PO Q8HR [facility] Last Admin: 12/11/18 13:14 Dose: 12.5 mg Ondansetron HCl (Zofran Inj*) 4 mg IV Q6H PRN PRN Reason: NAUSEA Oxycodone/Acetaminophen (Percocet 5/325 Tab*) 1 tab PO Q4H PRN PRN Reason: PAIN Last Admin: 12/11/18 04:49 Dose: 1 tab Pantoprazole Sodium (Protonix Tab*) 40 mg PO BID [facility] Last Admin: 12/11/18 09:40 Dose: 40 mg Polyethylene Glycol/Electrolytes (Miralax*) 17 gm PO DAILY [facility] Last Admin: 12/11/18 09:40 Dose: 17 gm Polyethylene Glycol/Electrolytes (Miralax*) 17 gm PO DAILY PRN PRN Reason: CONSTIPATION Last Admin: 12/09/18 01:28 Dose: 17 gm Pravastatin Sodium (Pravachol (Nf)) 20 mg PO DAILY [facility]; Protocol Last Admin: 12/11/18 09:44 Dose: 20 mg Pregabalin (Lyrica Cap(*)) 25 mg PO TID [facility] Last Admin: 12/11/18 13:13 Dose: 25 mg Quetiapine Fumarate (Seroquel Tab*) 100 mg PO BEDTIME [facility] Last Admin: 12/10/18 20:34 Dose: 100 mg Vital Signs - 8 hr 12/11/18 12/11/18 12/11/18 08:11 09:37 13:13 Temperature 97.0 F Pulse Rate 62 Respiratory 16 20 18 Rate Blood Pressure 169/77 (mmHg) O2 Sat by Pulse 96 Oximetry 12/11/18 13:14 Temperature Pulse Rate Respiratory 18 Rate Blood Pressure (mmHg) O2 Sat by Pulse Oximetry Oxygen Devices in Use Now: None Appearance: Comfortable, NAD Eyes: No Scleral Icterus Ears/Nose/Mouth/Throat: Clear Oropharnyx, Mucous Membranes Moist Neck: NL Appearance and Movements; NL JVP Respiratory: Symmetrical Chest Expansion and Respiratory Effort, Clear to Auscultation Cardiovascular: NL Sounds; No Murmurs; No JVD, RRR, No Edema Abdominal: NL Sounds; No Tenderness; No Distention Lymphatic: No Cervical Adenopathy Extremities: No Clubbing, Cyanosis Skin: No Rash or Ulcers Neurological: Alert and Oriented x 3, NL Sensation, - - LUE and LLE 3/5 strength. RUE and RLE 5/5. Coordination on right intact. Coordination of left impaired. Nutrition: Taking PO's Result Diagrams: 12/11/18 09:44 12/11/18 09:44 Additional Lab and Data: Laboratory Results - last 24 hr 12/10/18 12/10/18 12/11/18 16:11 20:15 08:41 WBC RBC Hgb Hct MCV MCH MCHC RDW Plt Count MPV Neut % (Auto) Lymph % (Auto) [place] % (Auto) Eos % (Auto) Baso % (Auto) Absolute Neuts (auto) Absolute Lymphs (auto) Absolute Monos (auto) Absolute Eos (auto) Absolute Basos (auto) Absolute Nucleated RBC Nucleated RBC % Sodium Potassium Chloride Carbon Dioxide Anion Gap BUN Creatinine Est GFR ( Amer) Est GFR (Non-Af Amer) BUN/Creatinine Ratio Glucose POC Glucose (mg/dL) 164 H 249 H 155 H Calcium Magnesium 12/11/18 12/11/18 12/11/18 09:44 09:44 11:58 WBC 9.1 RBC 4.28 Hgb 12.4 Hct 38 MCV 88 MCH 29 MCHC 33 RDW 14 Plt Count 182 MPV 8.5 Neut % (Auto) 55.7 Lymph % (Auto) 31.8 [place] % (Auto) 6.7 Eos % (Auto) 5.0 Baso % (Auto) 0.8 Absolute Neuts (auto) 5.1 Absolute Lymphs (auto) 2.9 Absolute Monos (auto) 0.6 Absolute Eos (auto) 0.5 Absolute Basos (auto) 0.1 Absolute Nucleated RBC 0 Nucleated RBC % 0 Sodium 134 L Potassium 4.4 Chloride 100 L Carbon Dioxide 27 Anion Gap 7 BUN 16 Creatinine 1.31 H Est GFR ( Amer) 48.4 Est GFR (Non-Af Amer) 40.0 BUN/Creatinine Ratio 12.2 Glucose 272 H POC Glucose (mg/dL) 258 H Calcium 9.3 Magnesium 2.0 Assess/Plan/Problems-Billing Assessment: 72 year old left handed female with a history of HTN, MARLINE, DM, prior DVT with PE , on Eliquis with new right pontine stroke on MRI with left sided weakness. Previously on Eliquis and ASA and Plavix added for 20 days, now day 11/08 - Patient Problems (1) CVA (cerebral vascular accident) Comment: - New area of restricted difusion in right annel, consistent with new infarct per MRI - Neuro consult appreciated - Hx of [employer] occlusion with medullary stroke with R sided weakness and vertigo August 2018. At that time,echo showed no PFO - Continue aspirin, eliquis, plavix (added this admission for total of 20 days and today is 11/08) and atorvastin (dose increased, autosub from pravastatin) - Discharge to [facility] tomorrow (2) Right hip pain Comment: - Pelvic CT showing degenerative changes only - Continue PT/OT. - Dr Landry from ortho consulting and we appreciate their assistance. He suspects bursitis and recommends targeted physical therapy and if no relief she may benefit from guided injection - Continue pain meds and anti-spasmodics (3) DM II (diabetes mellitus, type II), controlled Comment: - BGs 160-280s, A1c 7.2 - On 12/11 Lantus and lispro SS with meals increased - Can resume home oral medications at discharge (4) HTN (hypertension) Comment: - SBP 130-160s - Not on anti-hypertensives outpatient (5) MARLINE (obstructive sleep apnea) Comment: - Continue CPAP (6) HLD (hyperlipidemia) Comment: - Continue atorvastatin (7) History of pulmonary embolism Comment: - Unprovoked, on indefinite anticoagulation (8) DVT prophylaxis Comment: - Funmiqumj (9) Full code status Comment: Status and Disposition: Inpatient. Discharge to [facility] when medically stable Attending: Bhaskar Scales
[2018-12-11] MEDS ORDERED: Bisacodyl SUPP* 10 MG SUPP PR ONE (17:37)
[2018-12-11] MEDS ORDERED: Magnesium Hydroxide LIQ* 30 ML UDC PO PRN (17:37)
[2018-12-11] MEDS: Docusate CAP* 100 MG PO PRN (17:49)
[2018-12-11] MEDS: QUEtiapine TAB* 100 MG PO SCH (22:11)
[2018-12-12] MEDS: Meclizine TAB* 12.5 MG PO SCH (05:10)
[2018-12-12] MEDS: Levothyroxine TAB* 100 MCG TAB PO SCH (05:10)
[2018-12-12 07:55] VITALS: BP 145/64
[2018-12-12] MEDS: Insulin LISPRO* 1 UNITS UNIT SUBCUT SCH (07:55)
[2018-12-12] MEDS: CMC:Pravastatin (NF) 20 MG TAB PO SCH (08:00)
[2018-12-12] MEDS: Clopidogrel TAB* 75 MG PO SCH (08:01)
[2018-12-12] MEDS: Apixaban* 2.5 MG TAB PO SCH (08:01)
[2018-12-12] MEDS: Aspirin EC TAB* 81 MG TAB.EC PO SCH (08:01)
[2018-12-12] MEDS: Pregabalin CAP(*) 25 MG PO SCH (08:01)
[2018-12-12] MEDS: Insulin GLARGINE(*) 1 UNITS UNIT SUBCUT SCH (08:02)
[2018-12-12] MEDS: Magnesium Oxide TAB* 400 MG PO SCH (08:02)
[2018-12-12] MEDS: Citalopram TAB* 20 MG PO SCH (08:02)
[2018-12-12] MEDS: Polyethylene Glycol 3350* 17 GM PACKET PO SCH (08:02)
[2018-12-12] MEDS: Donepezil TAB* 5 MG PO SCH (08:02)
[2018-12-12] MEDS: Pantoprazole TAB * 40 MG TAB PO SCH (08:02)
--- NOTE | 2018-12-12 16:29 | DS ---
CC: Dr. Nash * DISCHARGE SUMMARY: DATE OF ADMISSION: 12/08/18 DATE OF DISCHARGE: 12/12/18 PRIMARY CARE PROVIDER: Dr. Nash. ATTENDING PHYSICIAN: Dr. Scales * (dictated by Suyapa Quezada NP) PRIMARY DIAGNOSES: 1. Pontine stroke. 2. Right hip pain. SECONDARY DIAGNOSES: 1. Cerebrovascular accident x3. 2. Diabetes, type 2. 3. Obstructive sleep apnea. 4. History of pulmonary embolism and deep vein thrombosis. 5. Hypertension. 6. Depression. 7. Hypothyroidism. CONSULTATIONS DURING HOSPITAL: 1. Neurology; Dr. Mary Jo Avendano, Dr. Marcio Lucero, Dr. Vasquez. 2. Orthopedics; Dr. Landry. PROCEDURES WHILE IN THE HOSPITAL: No procedures. STUDIES WHILE IN THE HOSPITAL: 1. Brain CT: Impression: No acute intracranial pathology. Chronic small vessel ischemic changes with remote right infarct. 2. Chest x-ray: Impression: No active cardiopulmonary disease. 3. EKG: Impression: Sinus rhythm PVCs. 4. Head CTA: Impression: Again noted is occlusion of the right posterior cerebral artery, stable. Again noted intracranial atherosclerosis most pronounced along the middle cerebral arteries without high-grade stenosis or other occlusion. No internal carotid artery stenosis by NASCET criteria. 5. Pelvis CT: Impression: Degenerative changes without definitive fracture of right hip or pelvis. 6. Brain [place]: Impression: New area of restriction of diffusion within the right annel. This is consistent with the new acute infarct. DISCHARGE HOME MEDICATIONS: New home medications: 1. Plavix 75 mg p.o. daily. 2. Lyrica 25 mg p.o. t.i.d. Continued home medications: 1. Insulin glargine 12 units subcu daily. 2. Eliquis 2.5 mg p.o. b.i.d. 3. Aspirin 81 mg p.o. daily. 4. Vitamin D3 2000 units p.o. daily. 5. Celexa 20 mg p.o. daily. 6. Vitamin B12 1000 mcg IM monthly. 7. Flexeril 10 mg p.o. t.i.d. p.r.n. 8. Colace 100 mg p.o. b.i.d. p.r.n. 9. Aricept 10 mg p.o. daily. 10. Glipizide 2.5 mg p.o. daily. 11. Levothyroxine 100 mcg p.o. daily. 12. Victoza 1.8 mg subcu at bedtime. 13. Mag oxide 250 mg p.o. t.i.d. 14. Meclizine 12.5 mg p.o. q.8 hours p.r.n. 15. Metformin 750 mg p.o. daily with meals. 16. Niacin 500 mg p.o. daily. 17. Procardia 60 mg p.o. daily. 18. Omeprazole 20 mg p.o. b.i.d. with meals. 19. Percocet 5/325 one tab p.o. b.i.d. p.r.n. 20. MiraLAX 17 g p.o. daily. 21. Pravastatin 20 mg p.o. daily. 22. Prednisolone 1% ophthalmic suspension 1 drop both eyes daily. 23. Seroquel 100 mg p.o. at bedtime. 24. Tramadol 50 to 100 mg p.o. q.6 hours p.r.n. 25. Travoprost 0.004% one both eyes at bedtime. 26. Valacyclovir 500 mg p.o. every other day. 27. Pravastatin 20 mg. Changed home medications: No home medications changed. Discontinued home medications: No home medications discontinued. HISTORY OF PRESENT ILLNESS/HOSPITAL COURSE: Ms. Duran is a 72-year-old female with past medical history significant for CVA x3; diabetes, type 2; MARLINE; history of PE and DVT; hypertension; depression; hypothyroid, who presented to the emergency room on 12/08/18 with complaints of cramping in her right leg, difficulty ambulating, and difficulty using left hand. Please see history by ASHLEY Barbour, for complete summary of events leading up to hospitalization , but in short the patient presented to the emergency department with the above complaints. The patient was seen by Neurology in the emergency department and had no large vessel occlusion and was out of window for tPA; therefore, the patient was admitted for further evaluation and treatment. While in the hospital, the patient had labs that revealed her LDL at goal. Therefore, the patient was continued on her niacin. The patient's old records were reviewed and she recently had an echocardiogram, which was without patent foramen ovale. The patient was monitored on telemetry and has been noticed to be sinus deng. The patient's home medications of aspirin and Eliquis were continued with the addition of Plavix at the recommendation of Neurology. Plavix will be added for 20 days. Today is day 4 of . As mentioned above, while the patient was hospitalized, she also had an MRI of the brain, which revealed a right pontine stroke. 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 While in the hospital, the patient also was evaluated by Dr. Holbrook from Orthopedics given the right hip pain. Dr. Landry suspects this is bursitis over the anterior aspect of the hip and recommends targeted physical therapy. If targeted physical therapy is unsuccessful, he would recommend a guided injection, which would be reasonable. The patient was also evaluated by PT and OT and it was noted the patient would benefit from PMRU. The patient is stable for discharge to PMRU today. REVIEW OF SYSTEMS: General: No anorexia, no fevers, no weight loss. HEENT: No visual complains, no sore throat, no difficultly swallowing. Neck: No neck pain. Respiratory: No shortness of breath. No wheezing. Cardiac: No chest pain, no palpitations. Extremities: No pain or deformity. The patient reports weakness in right upper and lower extremities. Musculoskeletal: No pain and deformities. Abdomen: No nausea, vomiting, or diarrhea. The patient' s last BM was yesterday. Neuro: The patient denies dizziness, headache, tinnitus, visual complaints. The patient reports weakness in left upper and lower extremity. Skin: The patient denies lesions. PHYSICAL EXAM: General: Ms. Duran is a 72-year-old female who is sitting in bed. Appears in no acute distress, appears stated age. Vital Signs: Temp 97.4 , HR 53, RR 16, O2 saturation 97% on room air, BP 145/64. ENT: Visual naranjo are intact. EOMs intact. Oral mucosa is moist without lesion. Posterior pharynx is clear. Neck: No lymphadenopathy. Supple. Respiratory: Symmetrical chest expansion. No accessory muscle use. Lungs are clear to auscultation. No rhonchi, wheezes, or rales. Cardiac: Regular rate and rhythm. S1, S2 present. No murmurs, rubs, or gallops. No JVD. Extremities: Skin is warm bilaterally. No edema. No clubbing or cyanosis. Pedal pulses are 2+ bilaterally. Musculoskeletal: Pain to right hip with movement. Abdomen : Soft, nontender to palpation. Bowel sounds are normoactive. Neuro: The patient is awake, alert, oriented x4. Cranial nerves II through XII are grossly intact. Motor strength in left upper and lower extremity is 4/5. Motor strength within right upper and lower extremity is 5/5. Coordination intact on right. Coordination is impaired on left. Skin: Grossly intact. LABORATORY DATA: WBC 9.1, hemoglobin 12.4, hematocrit 38, platelets 182. Sodium 134, potassium 4.4, chloride 100, carbon dioxide 27, BUN 16, creatinine 1.31, magnesium 2.0. DISCHARGE PLAN: 1. Pontine stroke. The patient will continue aspirin, Eliquis, and Plavix. The patient will continue the Plavix for a total of 20 days. Today is day 4 of 20. After the 20 days, the patient will resume Eliquis and aspirin only. Please watch for evidence of clinical worsening of her PTT as concern for bleeding. The patient will be admitted to [facility] for rehabilitation. The patient should follow up with her neurologist, Dr. Shabazz, in 1 month. The patient should have risk factor modifications including tighter diabetic control. The patient should be compliant with her CPAP for MARLINE. 2. Right hip pain: As mentioned above, the patient has been evaluated by Ortho. They recommended physical therapy. If physical therapy is unsuccessful, the patient should be referred back to Ortho for a possible targeted injection. The patient has been placed on Lyrica for radicular/neuropathic pain. If this is not helping, it can be discontinued or if this is causing any lethargy, please discontinue. 3. Diabetes. The patient can continue her home medications as same. A1c was 7.2. The patient should follow up with her primary care regarding tighter control and also lifestyle changes. 4. Hypertension: The patient's Procardia was held to allow for permissive hypertension while admitted. The patient can resume her nifedipine at discharge. 5. MARLINE: The patient should continue the use of CPAP. 6. Hyperlipidemia. The patient should continue her niacin and pravastatin. 7. History of pulmonary embolism: The patient has a history of pulmonary embolism that is unprovoked; therefore, she is on indefinite anticoagulation. The patient should continue her Eliquis 2.5 mg p.o. daily. The patient is on a lower dose Eliquis. I suspect this is due to her elevated creatinine, but I will defer this to her primary care who initiated the Eliquis. 8. Education: The patient was educated on signs and symptoms of new or worsening condition, when to return to the emergency room. The patient stated understanding. 9. Followup: The patient should follow up with her primary care in 1 to 2 weeks. The patient should follow up with Neurology, Dr. Shabazz, in 1 month. The patient will be on PMRU under the care of Dr. Bhatti. This is a summarized report of a complex medical history and hospital stay. For further details, please see the entire medical record. TIME SPENT: Approximately 40 minutes was spent on this discharge, greater than half of the time was spent [id number] with the patient discussing discharge plans and instructions. SUYAPA QUEZADA, NAVI [id number]/[facility] #: [id number] PAULINE
--- NOTE | 2018-12-14 00:19 | EEG ---
ELECTROENCEPHALOGRAPHY: DATE OF STUDY: 12/08/18 REFERRING PHYSICIAN: ASHLEY Barbour LOCATION: She is an inpatient. CLINICAL PROBLEM: Left-sided weakness and slurred speech in a patient with prior strokes. The patient reports episodes of right leg jerking. Rule out seizures. MEDICATIONS: Include: 1. Cyclobenzaprine. 2. Pravastatin. 3. Levothyroxine. 4. Donepezil. 5. Clopidogrel. 6. Aspirin. 7. Citalopram. 8. Apixaban. 9. Humalog. 10. Meclizine. EEG DESCRIPTION: This 19-channel EEG is remarkable for background rhythms consisting of an occipital rhythm at about 8.5 to 9 cycles per second which is symmetric. Moderate voltage bifrontal beta rhythms are noted and are symmetric. The patient is awake at the onset of tracing. Activation procedures were not attempted. There is movement artifact occasionally. There is groaning at times, but no clinical events otherwise. The patient does not sleep. There are no focal, lateralized, or epileptiform abnormalities. INTERPRETATION: Normal awake EEG. [id number]/[facility] #: [id number] [facility]OS[facility]ITALJu
== END 2018-12-12 09:00 | DRG 65 ==
LOC: ED 10:42 → MEDTELE 12:37 → OBSVTOIN 12-09 15:59 → MEDTELE 12-11 05:41
PROVIDERS: ADMIT Internal Medicine; ATTEND Student in an Organized Health Care Education/Training Program
DX: I63.89 Other cerebral infarction (principal); G81.92 Hemiplegia, unspecified affecting left dominant side; I69.353 Hemiplegia and hemiparesis following cerebral infarction affecting right non-dominant side; E11.22 Type 2 diabetes mellitus with diabetic chronic kidney disease; G47.33 Obstructive sleep apnea (adult) (pediatric); F32.9 Major depressive disorder, single episode, unspecified; E03.9 Hypothyroidism, unspecified; I12.9 Hypertensive chronic kidney disease with stage 1 through stage 4 chronic kidney disease, or unspecified chronic kidney disease; N18.9 Chronic kidney disease, unspecified; R29.708 NIHSS score 8; E78.5 Hyperlipidemia, unspecified; M25.551 Pain in right hip; R47.1 Dysarthria and anarthria; M70.71 Other bursitis of hip, right hip; R29.810 Facial weakness; Z86.711 Personal history of pulmonary embolism; Z86.718 Personal history of other venous thrombosis and embolism; Z99.89 Dependence on other enabling machines and devices; Z79.01 Long term (current) use of anticoagulants; Z79.84 Long term (current) use of oral hypoglycemic drugs; Z79.82 Long term (current) use of aspirin; Z79.4 Long term (current) use of insulin; Z79.899 Other long term (current) drug therapy; Z88.1 Allergy status to other antibiotic agents; Z88.5 Allergy status to narcotic agent; Z88.0 Allergy status to penicillin; Z88.8 Allergy status to other drugs, medicaments and biological substances; Z82.3 Family history of stroke; Z87.891 Personal history of nicotine dependence
CPT/HCPCS: 36415; 70450; 70496; 70498; 70551; 71045; 72192; 80048; 80053; 80061; 81003; 83036; 83605; 83735; 84484; 85025; 85610; 85730; 86850; 86900; 86901; 93005; 95816; 99285; A9270-GY; G0378; G8978-GP-CJ; G8979-GP-CI; G8987-GO-CJ; G8988-GO-CI; G8999-GN-CJ; G9158-GN-CJ; G9186-GN-CI; Q9967

== ENCOUNTER 2018-12-12 09:05 | Inpatient (IN) | payer MEDICARE, BC ==
[2018-12-12] MEDS ORDERED: Senna TAB PO PRN (11:00)
[2018-12-12] MEDS ORDERED: Bisacodyl SUPP* 10 MG SUPP PR PRN (11:00)
--- NOTE | 2018-12-12 12:47 | PMRUTEAM ---
PMRU: Team Meeting Current Status: Physical Therapy: Current Status Bed Mobility Assistance MaxAssist Transfer Mobility Assistance Mod Assist Ambulation Assistance Max Assist 2 steps Ambulation Assistive Devices Rolling Walker Stairs Assistance NT Stairs Recommended Devices Two Rails Number of Stairs Occupational Therapy: Current Status Upper Body Dressing Supervision Lower Body Dressing Max Asst Bathing Mod Assist Toileting Min Assist Toilet Transfer Min Assist Shower Transfer Min Assist Eating Supervision Rec Therapy: Current Status Summary of Assessment and RT assessment complete and pt. is active in Clinical Impression leisure sessions daily. Pt. engage in a card game for 45 minutes. Pt. has been in good spirits and expresses forward thinking. Social Work: Current Status Discharge Plan return home with home care svs and family support Potential for Family Training pt's is involved and supportive Anticipated Discharge Home Destination Discharge With return home with home care svs and family support Nutrition: Current Status Monitoring New admission today. Evaluation in progress. Goals: Social Work: Goals Discharge Plan return home with home care svs and family support Potential for Family Training pt's is involved and supportive Anticipated Discharge Home Destination Discharge With return home with home care svs and family support Care Plan: Care Plan DVT Prophylaxis- Improve/Maintain Start: 12/12/18 12:33 Freq: QSHIFT Status: Active Target: Protocol: Activity Type Activity Date Activity User E-Sign Co-Sign Detail Recorded Client Recorded Date Recorded By Document 12/12/18 12:34 [id number] 12/12/18 12:36 [id number] 12/12/18 12:34 PMRU Outcome: DVT Prophylaxis Outcome/Goals Remains Free of DVT Complies with DVT Prophylaxis /Treatment Demonstrates Knowledge of DVT Prevention/ Treatment TEDS Stockings on Every AM, Off at HS Progression Toward Outcome/Goals Progressing Education-Improve/Maintain Start: 12/12/18 12:33 Freq: QSHIFT Status: Active Target: Protocol: Activity Type Activity Date Activity User E-Sign Co-Sign Detail Recorded Client Recorded Date Recorded By Document 12/12/18 12:34 [id number] 12/12/18 12:36 [id number] 12/12/18 12:34 PMRU Outcome: Education Outcome/Goals Encourage Questions Progression Toward Outcome/Goals Progressing /GI-Improve/Maintain Start: 12/12/18 12:33 Freq: QSHIFT Status: Active Target: Protocol: Activity Type Activity Date Activity User E-Sign Co-Sign Detail Recorded Client Recorded Date Recorded By Document 12/12/18 12:34 [id number] 12/12/18 12:36 12/12/18 12:34 PMRU Outcome: Genitourinary/ Gastrointestinal Genitourinary- Outcome/Goals Remain Free of Hospital- Acquired UTI Gastrointestinal-Outcome/Goals Maintain/ Achieve Bowel Regularity in Accordance with Pt's Baseline Prevent Constipation Laxatives as Ordered Progression Toward Outcome/Goals - Progressing Progression Toward Outcome/Goals - GI Progressing Medication Administration Start: 12/12/18 12:33 Freq: QSHIFT Status: Active Target: Protocol: Activity Type Activity Date Activity User E-Sign Co-Sign Detail Recorded Client Recorded Date Recorded By Document 12/12/18 12:34 [id number] 12/12/18 12:36 12/12/18 12:34 PMRU Outcome: Medication Administration Assess Patient Knowledge/Teach Med Yes Education for all Meds Outcome/Goals Patient Independent with Medication Administration at Home Demonstrates Understanding Progression Towards Outcome/Goals Progressing Is Patient Going Home on Lovenox? No Metabolic Status- Improve/Maintain Start: 12/12/18 12:33 Freq: QSHIFT Status: Active Target: Protocol: Activity Type Activity Date Activity User E-Sign Co-Sign Detail Recorded Client Recorded Date Recorded By Document 12/12/18 12:34 [id number] 12/12/18 12:36 12/12/18 12:34 PMRU Outcome: Metabolic Status Have Fingersticks Been Ordered Yes Fingerstick Order Frequency AC & HS Outcome/Goals Maintain/ Improve Metabolic Status Demonstrate Knowledge of Prevention/ Treatment of Metabolic Imbalances Progression Toward Outcome/Goals Progressing Neurological- Improve/Maintain Start: 12/12/18 12:33 Freq: QSHIFT Status: Active Target: Protocol: Activity Type Activity Date Activity User E-Sign Co-Sign Detail Recorded Client Recorded Date Recorded By Document 12/12/18 12:34 [id number] 12/12/18 12:36 12/12/18 12:34 PMRU Outcome: Neurological Weakness/Aphasia Weakness Left Side Outcome/Goals Improve Neurological Status Prevent Avoidable Neurological Decline Demonstrate Knowledge of Prevention/Tx of Neuro Disorders/ Complication Maintain/ Improve Strength/ROM Progression Toward Outcome/Goals Progressing Pain/Comfort- Improve/Maintain Start: 12/12/18 12:33 Freq: QSHIFT Status: Active Target: Protocol: Activity Type Activity Date Activity User E-Sign Co-Sign Detail Recorded Client Recorded Date Recorded By Document 12/12/18 12:34 [id number] 12/12/18 12:36 [id number] 12/12/18 12:34 PMRU Outcome: Pain/Comfort Outcome/Goals Demonstrates Knowledge and Use of Available Comfort Measures Achieves Acceptable Comfort/Pain Level as Determined by Patient/Condit Maintain Comfort Level Allowing Patient to Fully Participate in Rehab Progression Toward Outcome/Goals Progressing Safety- Improve/Maintain Start: 12/12/18 12:33 Freq: QSHIFT Status: Active Target: Protocol: Activity Type Activity Date Activity User E-Sign Co-Sign Detail Recorded Client Recorded Date Recorded By Document 12/12/18 12:34 [id number] 12/12/18 12:36 [id number] 12/12/18 12:34 PMRU Outcome: Safety Outcome/Goals Remain Free of Injury or Harm Cooperates with Safety Measures for Least Restrictive Environment Prevent Falls/ Injury Progression Toward Outcome/Goals Progressing Medicine Note: Length of Stay: 17 days Anticipated Discharge Destination: Home Tentative Discharge Date: December 29, 2018 Discharged to: Home
[2018-12-12] MEDS ORDERED: Insulin LISPRO* 1 UNITS UNIT SUBCUT ONE (13:18)
[2018-12-12] MEDS: Insulin LISPRO* 1 UNITS UNIT SUBCUT SCH ×3 (13:19→21:15)
[2018-12-12] MEDS: Pregabalin CAP(*) 25 MG PO SCH ×2 (14:21→21:17)
[2018-12-12] MEDS: Acetaminophen TAB* 325 MG PO PRN ×2 (16:46→22:59)
[2018-12-12] MEDS: Meclizine TAB* 12.5 MG PO SCH (17:36)
[2018-12-12] MEDS: Apixaban* 2.5 MG TAB PO SCH (21:16)
[2018-12-12] MEDS: Pantoprazole TAB * 40 MG TAB PO SCH (21:16)
[2018-12-12] MEDS: Cyclobenzaprine TAB* 10 MG PO PRN (21:17)
[2018-12-12] MEDS: Magnesium Oxide TAB* 400 MG PO SCH (21:17)
[2018-12-12] MEDS: Docusate CAP* 100 MG PO SCH (21:17)
--- NOTE | 2018-12-12 21:26 | HP ---
ADMISSION HISTORY AND PHYSICAL: DATE OF ADMISSION: 12/12/18 REASON FOR ADMISSION: Right pontine stroke. HISTORY OF PRESENT ILLNESS: Elizabeth Duran is a 72-year-old female. She has a medical history significant for diabetes as well as early dementia. She also has a history of a DVT and pulmonary embolism in the past. She is on chronic anticoagulation. She was admitted to the hospital back in August with a right medullary stroke. She had aspirin added to her Eliquis. The patient was discharged home and did okay. On 12/08/18, she woke up at about 3 o'clock in the morning and could not get up from her bed. She was brought to the hospital and had a CAT scan in the emergency room, which was negative for a new infarct. She had a CTA of the head showing a known right RN TRAINING occlusion, but no new large vessel occlusion. She was seen by Dr. Vasquez. He recommended adding Plavix to her aspirin and Eliquis. He felt that she should continue dual antiplatelet therapy plus Eliquis for 20 days and then switch back to aspirin and Eliquis alone. The patient had an MRI of her brain while on the acute service. The MRI of her brain showed a new area of restricted diffusion within the right annel which was consistent with an acute infarct. The patient also was seen by Orthopedics on the acute service for hip pain on her right hip. Dr. Landry felt that she had trochanteric bursitis and that she could continue with therapy and have a steroid injection when she was off Plavix. She was felt to have physical therapy and occupational therapy needs. She is now being admitted for inpatient rehab so that she may return to independent living. PAST MEDICAL HISTORY: Significant for the aforementioned right medullary stroke back in August. She also has a history of diabetes. She has a history of sleep apnea and uses a CPAP and has a history of DVT and pulmonary embolus, hypertension, and depression. CURRENT MEDICATIONS: Include: 1. Eliquis. 2. Aspirin. 3. Plavix. 4. Lipitor. 5. Celexa. 6. Aricept. 7. Lantus insulin. 8. Humalog. 9. Synthroid. 10. Magnesium oxide. 11. Protonix. 12. Lyrica. 13. She is also on Seroquel. 14. Normally at home, she takes glipizide for her diabetes as well as Lantus and metformin. ALLERGIES: CHRIST INHIBITORS, MORPHINE, PENICILLIN, NAPROSYN, CLARITHROMYCIN. SOCIAL HISTORY: She is a nonsmoker and a rare drinker. She lives with her in a 1-story house. She is retired. She is a former smoker. REVIEW OF SYSTEMS: No current shortness of breath or chest pain. PHYSICAL EXAMINATION VITAL SIGNS: The patient's temperature is 97.9, blood pressure is 155/71, pulse 60, respirations 18. HEENT: She has a slight right facial droop, slight slurring of her speech. NECK: Supple with no lymphadenopathy. LUNGS: Lung sound clear to auscultation bilaterally. HEART: Heart sounds are regular. S1 and S2 audible. ABDOMEN: Soft and nontender. EXTREMITIES: Peripheral pulses were intact. NEUROLOGIC: She was awake, alert, oriented to person, place, and time. She had some dysarthria noted. She had a facial droop on the left side and her sensation appeared to be intact. Left arm was about 4/5, right arm seemed to be 5/5, left leg was about 4/5, right leg was about 5/5. FUNCTIONAL EXAM: She transfers with min assist. ASSESSMENT: New right pontine cerebrovascular accident in a patient with a previous right medullary cerebrovascular accident. PLAN: Integrate her into a comprehensive and therapeutic rehab program with the following goals: 1. Physical Therapy will work with the patient. They are going to work on functional transfer training, ambulation training with a walker. 2. Occupational Therapy will see the patient, work on her activities of daily living including toileting and toilet transfers. 3. She is on Eliquis for DVT prophylaxis. 4. We are going to continue her on aspirin plus Eliquis plus Plavix for 20 days , today is day 4. On 12/28/18, she will stop her Plavix and just go to aspirin and Eliquis. 5. For her diabetes, we will continue Lantus insulin and sliding scale coverage. We will add in her metformin and glipizide as needed. 6. Continue Protonix. 7. Continue Aricept for dementia. 8. Traffic Signal Supervisor Maintenance will be closely involved to make sure that any services and equipment the patient requires are in place prior to discharge. 9. Family training as appropriate. 10. Home with appropriate services. ESTIMATED LENGTH OF STAY: 3 weeks. [id number]/[facility] #: [id number] PAULINE
[2018-12-12] MEDS: PTO:Travoprost 0.004% (NF) OPHTH.SOLN BOTH EYES SCH (23:21)
[2018-12-13 05:21] LABS: ABS Basophils 0.1 10^3/ul (0-0.2); ABS Eosinophils 0.4 10^3/ul (0-0.6); ABS Lymphocytes 2.9 10^3/ul (1.0-4.8); ABS Monocytes 0.6 10^3/ul (0-0.8); ABS Neutrophils 4.3 10^3/ul (1.5-7.7); ABS Nucleated RBC 0 10^3/ul; Eosinophil % 4.3 %; Hematocrit 37 % (33-41); Hemoglobin 12.1 g/dL (12.0-16.0); Lymphocyte % 34.8 %; Mean Corpuscular HGB Conc 33 g/dL (31-36); Mean Corpuscular Hemoglobin 29 pg (27-31); Mean Corpuscular Volume 86 fL (80-97); Mean Platelet Volume 8.2 fL (7.4-10.4); Nucleated Red Blood Cells % 0; Platelet Count 196 10^3/uL (150-450); Red Blood Count 4.25 10^6 /uL (3.70-4.87); Red Cell Distribution Width 14 % (10.5-15); White Blood Count 8.2 10^3/uL (3.5-10.8)
[2018-12-13 05:38] LABS: Albumin 3.5 g/dL (3.2-5.2); Albumin/Globulin Ratio 1.3 (1-3); BUN/Creatinine Ratio 16.9 (8-20); Calcium 9.4 mg/dL (8.6-10.3); EGFR African American 40.2 (>60); EGFR Non-African American 33.2 (>60); Globulin 2.8 g/dL (2-4); Potassium 4.2 mmol/L (3.5-5.0); Total Bilirubin 0.5 mg/dL (0.2-1.0); Total Protein 6.3 g/dL (6.4-8.9)
[2018-12-13] MEDS: Meclizine TAB* 12.5 MG PO SCH ×4 (06:04→21:46)
[2018-12-13] MEDS: Levothyroxine TAB* 100 MCG TAB PO SCH (06:04)
[2018-12-13] MEDS: Acetaminophen TAB* 325 MG PO PRN ×2 (06:05→23:30)
[2018-12-13] MEDS ORDERED: Insulin GLARGINE(*) 1 UNITS UNIT SUBCUT SCH (08:00)
[2018-12-13] MEDS: Magnesium Oxide TAB* 400 MG PO SCH ×2 (09:44→21:45)
[2018-12-13] MEDS: Pantoprazole TAB * 40 MG TAB PO SCH ×2 (09:44→21:45)
[2018-12-13] MEDS: Apixaban* 2.5 MG TAB PO SCH ×2 (09:45→21:44)
[2018-12-13] MEDS: Pregabalin CAP(*) 25 MG PO SCH ×3 (09:45→21:45)
[2018-12-13] MEDS: Aspirin EC TAB* 81 MG TAB.EC PO SCH (09:45)
[2018-12-13] MEDS: Citalopram TAB* 20 MG PO SCH (09:45)
[2018-12-13] MEDS: Donepezil TAB* 5 MG PO SCH (09:45)
[2018-12-13] MEDS: Clopidogrel TAB* 75 MG PO SCH (09:45)
[2018-12-13] MEDS: PTO:prednisoLONE 1% OPHTH.SUSP* 5 ML OPHTH.SUSP BOTH EYES SCH (09:49)
[2018-12-13] MEDS: Docusate CAP* 100 MG PO SCH ×2 (09:50→21:45)
[2018-12-13] MEDS: Insulin LISPRO* 1 UNITS UNIT SUBCUT SCH ×4 (09:59→21:48)
[2018-12-13] MEDS ORDERED: Insulin LISPRO* 1 UNITS UNIT SUBCUT ONE ×2 (15:13→17:31)
[2018-12-13] MEDS: Atorvastatin* 10 MG TAB PO SCH (16:20)
[2018-12-13] MEDS: QUEtiapine TAB* 100 MG PO SCH ×2 (21:46)
[2018-12-13] MEDS: PTO:Travoprost 0.004% (NF) OPHTH.SOLN BOTH EYES SCH (21:50)
--- NOTE | 2018-12-13 22:57 | PN ---
Progress Note Date of Service: 12/13/18 Note: VIVIEN Suresh RAY was visited. Therapy notes read and reviewed. Seemed to do slightly better with therapies today. Had blood sugar >400 after eating a donut Current Medications: Active Medications Generic Name Dose Route Start Last Admin Trade Name Freq PRN Reason Stop Dose Admin Acetaminophen 650 mg 12/12/18 11:00 12/13/18 06:05 Tylenol Tab* PO 650 mg Q6H PRN Administration FEVER/PAIN Apixaban 2.5 mg 12/12/18 21:00 12/13/18 21:44 Eliquis* PO 2.5 mg BID DEBBIE Administration Aspirin 81 mg 12/13/18 09:00 12/13/18 09:45 Aspirin Ec Tab* PO 81 mg DAILY DEBBIE Administration Atorvastatin Calcium 5 mg 12/13/18 17:00 12/13/18 16:20 Lipitor* PO 5 mg 1700 DEBBIE Administration Bisacodyl 10 mg 12/12/18 11:00 Dulcolax Supp* [place] DAILY PRN CONSTIPATION Citalopram Hydrobromide 20 mg 12/13/18 09:00 12/13/18 09:45 Celexa Tab* PO 20 mg DAILY DEBBIE Administration Clopidogrel Bisulfate 75 mg 12/13/18 09:00 12/13/18 09:45 Plavix Tab* PO 12/28/18 23:00 75 mg DAILY DEBBIE Administration Cyclobenzaprine HCl 10 mg 12/12/18 19:13 12/12/18 21:17 Flexeril Tab* PO 10 mg TID PRN Administration SPASMS Docusate Sodium 100 mg 12/12/18 21:00 12/13/18 21:45 Colace Cap* PO 100 mg BID DEBBIE Administration Donepezil HCl 10 mg 12/13/18 09:00 12/13/18 09:45 Aricept Tab* PO 10 mg DAILY DEBBIE Administration Insulin Glargine 22 units 12/14/18 08:00 Lantus(*) SUBCUT Q24H [facility] Insulin Human Lispro 0 units 12/12/18 16:30 12/13/18 21:48 Humalog* SUBCUT 6 units ACHS DEBBIE Administration Protocol Levothyroxine Sodium 100 mcg 12/13/18 06:00 12/13/18 06:04 Synthroid Tab* PO 100 mcg DAILY@0600 DEBBIE Administration Magnesium Oxide 400 mg 12/12/18 21:00 12/13/18 21:45 Magox 400 Tab* PO 400 mg BID DEBBIE Administration Meclizine HCl 12.5 mg 12/12/18 14:00 12/13/18 21:46 Antivert Tab* PO 12.5 mg Q8HR DEBBIE Administration Pantoprazole Sodium 40 mg 12/12/18 21:00 12/13/18 21:45 Protonix Tab* PO 40 mg BID DEBBIE Administration Prednisolone Acetate 1 drop 12/13/18 09:00 12/13/18 09:49 Pred Forte 1%* BOTH EYES 1 drop QAM DEBBIE Administration Pregabalin 25 mg 12/12/18 14:00 12/13/18 21:45 Lyrica Cap(*) PO 25 mg TID DEBBIE Administration Quetiapine Fumarate 100 mg 12/12/18 23:00 12/13/18 21:46 Seroquel Tab* PO 100 mg BEDTIME DEBBIE Administration Senna 2 tab 12/12/18 11:00 Senokot Tab* PO BEDTIME PRN CONSTIPATION Travoprost 1 drop 12/12/18 23:00 12/13/18 21:50 Travatan Z (Nf) BOTH EYES 1 drop BEDTIME DEBBIE Administration Vital Signs: Vital Signs Temp Pulse Resp BP Pulse Ox 98.0 F 68 20 183/76 94 12/13/18 15:47 12/13/18 15:47 12/13/18 21:45 12/13/18 15:47 12/13/18 19:35 Lab Results: Laboratory Results - last 24 hr 12/13/18 12/13/18 12/13/18 05:11 05:11 13:45 WBC 8.2 RBC 4.25 Hgb 12.1 Hct 37 MCV 86 MCH 29 MCHC 33 RDW 14 Plt Count 196 MPV 8.2 Neut % (Auto) 52.2 Lymph % (Auto) 34.8 [place] % (Auto) 7.7 Eos % (Auto) 4.3 Baso % (Auto) 1.0 Absolute Neuts (auto) 4.3 Absolute Lymphs (auto) 2.9 Absolute Monos (auto) 0.6 Absolute Eos (auto) 0.4 Absolute Basos (auto) 0.1 Absolute Nucleated RBC 0 Nucleated RBC % 0 Sodium 137 Potassium 4.2 Chloride 100 L Carbon Dioxide 32 Anion Gap 5 BUN 26 H Creatinine 1.54 H Est GFR ( Amer) 40.2 Est GFR (Non-Af Amer) 33.2 BUN/Creatinine Ratio 16.9 Glucose 176 H 427 H POC Glucose (mg/dL) Calcium 9.4 Total Bilirubin 0.50 AST 14 ALT 12 Alkaline Phosphatase 58 Total Protein 6.3 L Albumin 3.5 Globulin 2.8 Albumin/Globulin Ratio 1.3 12/13/18 12/13/18 16:51 20:31 WBC RBC Hgb Hct MCV MCH MCHC RDW Plt Count MPV Neut % (Auto) Lymph % (Auto) [place] % (Auto) Eos % (Auto) Baso % (Auto) Absolute Neuts (auto) Absolute Lymphs (auto) Absolute Monos (auto) Absolute Eos (auto) Absolute Basos (auto) Absolute Nucleated RBC Nucleated RBC % Sodium Potassium Chloride Carbon Dioxide Anion Gap BUN Creatinine Est GFR ( Amer) Est GFR (Non-Af Amer) BUN/Creatinine Ratio Glucose POC Glucose (mg/dL) 281 H 160 H Calcium Total Bilirubin AST ALT Alkaline Phosphatase Total Protein Albumin Globulin Albumin/Globulin Ratio Exam: HEENT: Left Facial droop LUNGS: Clear bilaterally HEART: Regular rhythm ABDOMEN: Soft +BS EXTREMITIES: Fairly normal tone on left NEUROLOGIC: Dysarthric. Left arm 3-4/5, LLE 4/5, Right side 5/5 Assessment/Plan: 1. 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 ASA/Plavix/Eliquis. Plavix for 20 days to end December 28 2. Diabetes: Had high finger stick after dietary lapse. Continue Lantus/SSI. Increased Lantus 3. Hypothyroid: Synthroid 4. Hyperlipidemia: Atorvastatin 5. DVT Prophylaxis: Eliquis 6. Dementia: Aricept 7. Advance Directives: Full code 12/13/18 22:56 12/13/18 22:59 12/13/18 23:01
[2018-12-14] MEDS: Acetaminophen TAB* 325 MG PO PRN ×2 (05:51→22:43)
[2018-12-14] MEDS: Levothyroxine TAB* 100 MCG TAB PO SCH (05:51)
[2018-12-14] MEDS: Meclizine TAB* 12.5 MG PO SCH ×3 (05:51→21:44)
[2018-12-14] MEDS ORDERED: Insulin GLARGINE(*) 1 UNITS UNIT SUBCUT SCH (08:00)
[2018-12-14] MEDS: Insulin LISPRO* 1 UNITS UNIT SUBCUT SCH ×4 (08:32→21:46)
[2018-12-14] MEDS: Donepezil TAB* 5 MG PO SCH (08:57)
[2018-12-14] MEDS: Pregabalin CAP(*) 25 MG PO SCH ×3 (08:57→21:44)
[2018-12-14] MEDS: Docusate CAP* 100 MG PO SCH ×2 (08:57→21:49)
[2018-12-14] MEDS: Clopidogrel TAB* 75 MG PO SCH (08:57)
[2018-12-14] MEDS: Aspirin EC TAB* 81 MG TAB.EC PO SCH (08:57)
[2018-12-14] MEDS: Citalopram TAB* 20 MG PO SCH (08:57)
[2018-12-14] MEDS: Apixaban* 2.5 MG TAB PO SCH ×2 (08:57→21:44)
[2018-12-14] MEDS: Magnesium Oxide TAB* 400 MG PO SCH ×2 (08:57→21:44)
[2018-12-14] MEDS: Pantoprazole TAB * 40 MG TAB PO SCH ×2 (08:58→21:44)
[2018-12-14] MEDS: PTO:prednisoLONE 1% OPHTH.SUSP* 5 ML OPHTH.SUSP BOTH EYES SCH (09:01)
[2018-12-14] MEDS: Atorvastatin* 10 MG TAB PO SCH (16:45)
--- NOTE | 2018-12-14 20:23 | PN ---
Progress Note Date of Service: 12/14/18 Note: VIVIEN RAY was visited. Therapy notes read and reviewed. Blood sugars are still high. At home she takes Victoza, and metformin, but Cr 1.5. Will hold Metformin for now. BP a little high, will resume Nifedipine Current Medications: Active Medications Generic Name Dose Route Start Last Admin Trade Name Freq PRN Reason Stop Dose Admin Acetaminophen 650 mg 12/12/18 11:00 12/14/18 05:51 Tylenol Tab* PO 650 mg Q6H PRN Administration FEVER/PAIN Apixaban 2.5 mg 12/12/18 21:00 12/14/18 08:57 Eliquis* PO 2.5 mg BID DEBBIE Administration Aspirin 81 mg 12/13/18 09:00 12/14/18 08:57 Aspirin Ec Tab* PO 81 mg DAILY DEBBIE Administration Atorvastatin Calcium 5 mg 12/13/18 17:00 12/14/18 16:45 Lipitor* PO 5 mg 1700 DEBBIE Administration Bisacodyl 10 mg 12/12/18 11:00 Dulcolax Supp* [place] DAILY PRN CONSTIPATION Citalopram Hydrobromide 20 mg 12/13/18 09:00 12/14/18 08:57 Celexa Tab* PO 20 mg DAILY DEBBIE Administration Clopidogrel Bisulfate 75 mg 12/13/18 09:00 12/14/18 08:57 Plavix Tab* PO 12/28/18 23:00 75 mg DAILY DEBBIE Administration Cyclobenzaprine HCl 10 mg 12/12/18 19:13 12/12/18 21:17 Flexeril Tab* PO 10 mg TID PRN Administration SPASMS Docusate Sodium 100 mg 12/12/18 21:00 12/14/18 08:57 Colace Cap* PO 100 mg BID DEBBIE Administration Donepezil HCl 10 mg 12/13/18 09:00 12/14/18 08:57 Aricept Tab* PO 10 mg DAILY DEBBIE Administration Insulin Glargine 22 units 12/14/18 08:00 12/14/18 08:33 Lantus(*) SUBCUT 22 units Q24H DEBBIE Administration Insulin Human Lispro 0 units 12/12/18 16:30 12/14/18 17:49 Humalog* SUBCUT 12 units ACHS DEBBIE Administration Protocol Levothyroxine Sodium 100 mcg 12/13/18 06:00 12/14/18 05:51 Synthroid Tab* PO 100 mcg DAILY@0600 DEBBIE Administration Magnesium Oxide 400 mg 12/12/18 21:00 12/14/18 08:57 Magox 400 Tab* PO 400 mg BID DEBBIE Administration Meclizine HCl 12.5 mg 12/12/18 14:00 12/14/18 14:04 Antivert Tab* PO 12.5 mg Q8HR DEBBIE Administration Pantoprazole Sodium 40 mg 12/12/18 21:00 12/14/18 08:58 Protonix Tab* PO 40 mg BID DEBBIE Administration Prednisolone Acetate 1 drop 12/13/18 09:00 12/14/18 09:01 Pred Forte 1%* BOTH EYES Not Given QAM DEBBIE Pregabalin 25 mg 12/12/18 14:00 12/14/18 14:04 Lyrica Cap(*) PO 25 mg TID DEBBIE Administration Quetiapine Fumarate 100 mg 12/12/18 23:00 12/13/18 21:46 Seroquel Tab* PO 100 mg BEDTIME DEBBIE Administration Senna 2 tab 12/12/18 11:00 Senokot Tab* PO BEDTIME PRN CONSTIPATION Travoprost 1 drop 12/12/18 23:00 12/13/18 21:50 Travatan Z (Nf) BOTH EYES 1 drop BEDTIME DEBBIE Administration Vital Signs: Vital Signs Temp Pulse Resp BP Pulse Ox 98.3 F 69 14 180/73 96 12/14/18 14:13 12/14/18 14:13 12/14/18 19:38 12/14/18 14:13 12/14/18 19:38 Lab Results: Laboratory Results - last 24 hr 12/13/18 12/14/18 12/14/18 20:31 07:18 11:50 Glucose POC Glucose (mg/dL) 160 H 167 H 416 H* 12/14/18 12:05 Glucose 388 H POC Glucose (mg/dL) Exam: HEENT: Left Facial droop LUNGS: Clear bilaterally HEART: Regular rhythm ABDOMEN: Soft +BS EXTREMITIES: Fairly normal tone on left NEUROLOGIC: Dysarthric. Left arm 3-4/5, LLE 4/5, Right side 5/5 Assessment/Plan: 1. 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 ASA/Plavix/Eliquis. Plavix for 20 days to end December 28 2. Diabetes: Had high finger stick again. Continue Lantus/SSI. Increase Lantus 3. Hypothyroid: Synthroid 4. Hyperlipidemia: Atorvastatin 5. DVT Prophylaxis: Eliquis 6. Dementia: Aricept 7. Advance Directives: Full code 8. Increased BUN/Cr: will follow. Hold Metformin 12/14/18 20:23
[2018-12-14] MEDS: QUEtiapine TAB* 100 MG PO SCH (21:45)
[2018-12-14] MEDS: PTO:Travoprost 0.004% (NF) OPHTH.SOLN BOTH EYES SCH (21:49)
[2018-12-15] MEDS: Levothyroxine TAB* 100 MCG TAB PO SCH (05:24)
[2018-12-15] MEDS: Meclizine TAB* 12.5 MG PO SCH ×3 (05:24→21:54)
[2018-12-15] MEDS: Insulin GLARGINE(*) 1 UNITS UNIT SUBCUT SCH (10:06)
[2018-12-15] MEDS: Insulin LISPRO* 1 UNITS UNIT SUBCUT SCH ×4 (10:08→21:29)
[2018-12-15] MEDS: Clopidogrel TAB* 75 MG PO SCH (10:10)
[2018-12-15] MEDS: Aspirin EC TAB* 81 MG TAB.EC PO SCH (10:10)
[2018-12-15] MEDS: Citalopram TAB* 20 MG PO SCH (10:10)
[2018-12-15] MEDS: NIFEdipine ER TAB* 30 MG PO SCH (10:10)
[2018-12-15] MEDS: Magnesium Oxide TAB* 400 MG PO SCH ×2 (10:10→19:47)
[2018-12-15] MEDS: Pantoprazole TAB * 40 MG TAB PO SCH ×2 (10:10→21:54)
[2018-12-15] MEDS: Apixaban* 2.5 MG TAB PO SCH ×2 (10:10→21:54)
[2018-12-15] MEDS: Pregabalin CAP(*) 25 MG PO SCH ×3 (10:10→19:47)
[2018-12-15] MEDS: Donepezil TAB* 5 MG PO SCH (10:10)
[2018-12-15] MEDS: Docusate CAP* 100 MG PO SCH ×2 (10:12→21:59)
[2018-12-15] MEDS: PTO:prednisoLONE 1% OPHTH.SUSP* 5 ML OPHTH.SUSP BOTH EYES SCH (10:12)
--- NOTE | 2018-12-15 10:25 | PN ---
Progress Note Date of Service: 12/15/18 Note: VIVIEN RAY was visited. Nursing and therapy notes read and reviewed. No chest pain, shortness of breath or abdominal pain. Had large loose stool and wants bowel meds prn. Current Medications: Active Medications Generic Name Dose Route Start Last Admin Trade Name Freq PRN Reason Stop Dose Admin Acetaminophen 650 mg 12/12/18 11:00 12/14/18 22:43 Tylenol Tab* PO 650 mg Q6H PRN Administration FEVER/PAIN Apixaban 2.5 mg 12/12/18 21:00 12/15/18 10:10 Eliquis* PO 2.5 mg BID DEBBIE Administration Aspirin 81 mg 12/13/18 09:00 12/15/18 10:10 Aspirin Ec Tab* PO 81 mg DAILY DEBBIE Administration Atorvastatin Calcium 5 mg 12/13/18 17:00 12/14/18 16:45 Lipitor* PO 5 mg 1700 DEBBIE Administration Bisacodyl 10 mg 12/12/18 11:00 Dulcolax Supp* [place] DAILY PRN CONSTIPATION Citalopram Hydrobromide 20 mg 12/13/18 09:00 12/15/18 10:10 Celexa Tab* PO 20 mg DAILY DEBBIE Administration Clopidogrel Bisulfate 75 mg 12/13/18 09:00 12/15/18 10:10 Plavix Tab* PO 12/28/18 23:00 75 mg DAILY DEBBIE Administration Cyclobenzaprine HCl 10 mg 12/12/18 19:13 12/12/18 21:17 Flexeril Tab* PO 10 mg TID PRN Administration SPASMS Docusate Sodium 100 mg 12/12/18 21:00 12/15/18 10:12 Colace Cap* PO Not Given BID DEBBIE Donepezil HCl 10 mg 12/13/18 09:00 12/15/18 10:10 Aricept Tab* PO 10 mg DAILY DEBBIE Administration Insulin Glargine 26 units 12/15/18 08:00 12/15/18 10:06 Lantus(*) SUBCUT 26 units Q24H DEBBIE Administration Insulin Human Lispro 0 units 12/12/18 16:30 12/15/18 10:08 Humalog* SUBCUT 6 units ACHS DEBBIE Administration Protocol Levothyroxine Sodium 100 mcg 12/13/18 06:00 12/15/18 05:24 Synthroid Tab* PO 100 mcg DAILY@0600 DEBBIE Administration Magnesium Oxide 400 mg 12/12/18 21:00 12/15/18 10:10 Magox 400 Tab* PO 400 mg BID DEBBIE Administration Meclizine HCl 12.5 mg 12/12/18 14:00 12/15/18 05:24 Antivert Tab* PO 12.5 mg Q8HR DEBBIE Administration Nifedipine 30 mg 12/15/18 09:00 12/15/18 10:10 Procardia Xl Tab* PO 30 mg DAILY DEBBIE Administration Pantoprazole Sodium 40 mg 12/12/18 21:00 12/15/18 10:10 Protonix Tab* PO 40 mg BID DEBBIE Administration Prednisolone Acetate 1 drop 12/13/18 09:00 12/15/18 10:12 Pred Forte 1%* BOTH EYES 1 drop QAM DEBBIE Administration Pregabalin 25 mg 12/12/18 14:00 12/15/18 10:10 Lyrica Cap(*) PO 25 mg TID DEBBIE Administration Quetiapine Fumarate 100 mg 12/12/18 23:00 12/14/18 21:45 Seroquel Tab* PO 100 mg BEDTIME DEBBIE Administration Senna 2 tab 12/12/18 11:00 Senokot Tab* PO BEDTIME PRN CONSTIPATION Travoprost 1 drop 12/12/18 23:00 12/14/18 21:49 Travatan Z (Nf) BOTH EYES 1 drop BEDTIME DEBBIE Administration Vital Signs: Vital Signs Temp Pulse Resp BP Pulse Ox 98.1 F 63 16 141/51 96 12/15/18 05:30 12/15/18 05:30 12/15/18 10:10 12/15/18 05:30 12/15/18 05:30 Lab Results: Laboratory Results - last 24 hr 12/14/18 12/14/18 12/14/18 07:18 11:50 12:05 Glucose 388 H POC Glucose (mg/dL) 167 H 416 H* 12/14/18 12/14/18 12/15/18 16:21 21:19 07:31 Glucose POC Glucose (mg/dL) 230 H 219 H 160 H Exam: GEN: no acute distress. alert and appropriate. LUNGS: Clear to auscultation bilaterally HEART: Regular rate and rhythm ABDOMEN: Soft, + bowel sounds, non-tender, non-distended EXTREMITIES: no edema NEUROLOGIC: Dysarthric. Left Facial droop. Left arm 3-4/5, LLE 4/5, Right side 5 /5. Sensation intact. Assessment/Plan: 1. 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 ASA/Plavix/Eliquis. Plavix for 20 days to end December 28 2. Diabetes: Continue Lantus/SSI. Lantus increased 12/14. 3. Hypothyroid: Synthroid 4. Hyperlipidemia: Atorvastatin 5. DVT Prophylaxis: Eliquis 6. Dementia: Aricept 7. Advance Directives: Full code 8. Increased BUN/Cr: will follow labs. Holding Metformin 9. Estimated LOS: 12/29/18 12/15/18 10:24
[2018-12-15] MEDS: Acetaminophen TAB* 325 MG PO PRN (16:41)
[2018-12-15] MEDS: Atorvastatin* 10 MG TAB PO SCH (16:42)
[2018-12-15] MEDS: Cyclobenzaprine TAB* 10 MG PO PRN (19:46)
[2018-12-15] MEDS: QUEtiapine TAB* 100 MG PO SCH (21:54)
[2018-12-15] MEDS: PTO:Travoprost 0.004% (NF) OPHTH.SOLN BOTH EYES SCH (21:55)
[2018-12-16] MEDS: Levothyroxine TAB* 100 MCG TAB PO SCH (04:56)
[2018-12-16] MEDS: Meclizine TAB* 12.5 MG PO SCH ×3 (05:00→21:17)
[2018-12-16] MEDS ORDERED: Docusate CAP* 100 MG PO PRN (08:47)
[2018-12-16] MEDS: Apixaban* 2.5 MG TAB PO SCH ×2 (09:25→21:17)
[2018-12-16] MEDS: Magnesium Oxide TAB* 400 MG PO SCH ×2 (09:25→21:15)
[2018-12-16] MEDS: NIFEdipine ER TAB* 30 MG PO SCH (09:25)
[2018-12-16] MEDS: Donepezil TAB* 5 MG PO SCH (09:25)
[2018-12-16] MEDS: Pantoprazole TAB * 40 MG TAB PO SCH ×2 (09:25→21:17)
[2018-12-16] MEDS: Aspirin EC TAB* 81 MG TAB.EC PO SCH (09:26)
[2018-12-16] MEDS: Citalopram TAB* 20 MG PO SCH (09:26)
[2018-12-16] MEDS: Pregabalin CAP(*) 25 MG PO SCH ×3 (09:26→21:16)
[2018-12-16] MEDS: Clopidogrel TAB* 75 MG PO SCH (09:27)
[2018-12-16] MEDS: Acetaminophen TAB* 325 MG PO PRN ×2 (09:27→19:25)
[2018-12-16] MEDS: PTO:prednisoLONE 1% OPHTH.SUSP* 5 ML OPHTH.SUSP BOTH EYES SCH (09:29)
[2018-12-16] MEDS: Insulin GLARGINE(*) 1 UNITS UNIT SUBCUT SCH ×2 (09:31→09:47)
[2018-12-16] MEDS: Insulin LISPRO* 1 UNITS UNIT SUBCUT SCH ×4 (09:32→21:22)
--- NOTE | 2018-12-16 11:24 | PN ---
Progress Note Date of Service: 12/16/18 Note: VIVIEN RAY was visited. Nursing and therapy notes read and reviewed. No chest pain, shortness of breath or abdominal pain. Lantus increased this morning. Current Medications: Active Medications Generic Name Dose Route Start Last Admin Trade Name Freq PRN Reason Stop Dose Admin Acetaminophen 650 mg 12/12/18 11:00 12/16/18 09:27 Tylenol Tab* PO 650 mg Q6H PRN Administration FEVER/PAIN Apixaban 2.5 mg 12/12/18 21:00 12/16/18 09:25 Eliquis* PO 2.5 mg BID DEBBIE Administration Aspirin 81 mg 12/13/18 09:00 12/16/18 09:26 Aspirin Ec Tab* PO 81 mg DAILY DEBBIE Administration Atorvastatin Calcium 5 mg 12/13/18 17:00 12/15/18 16:42 Lipitor* PO 5 mg 1700 DEBBIE Administration Bisacodyl 10 mg 12/12/18 11:00 Dulcolax Supp* [place] DAILY PRN CONSTIPATION Citalopram Hydrobromide 20 mg 12/13/18 09:00 12/16/18 09:26 Celexa Tab* PO 20 mg DAILY DEBBIE Administration Clopidogrel Bisulfate 75 mg 12/13/18 09:00 12/16/18 09:27 Plavix Tab* PO 12/28/18 23:00 75 mg DAILY DEBBIE Administration Cyclobenzaprine HCl 10 mg 12/12/18 19:13 12/15/18 19:46 Flexeril Tab* PO 10 mg TID PRN Administration SPASMS Docusate Sodium 100 mg 12/16/18 08:47 Colace Cap* PO BID PRN CONSTIPATION Donepezil HCl 10 mg 12/13/18 09:00 12/16/18 09:25 Aricept Tab* PO 10 mg DAILY DEBBIE Administration Insulin Glargine 28 units 12/16/18 08:49 12/16/18 09:31 Lantus(*) SUBCUT 28 ml Q24H DEBBIE Administration Insulin Human Lispro 0 units 12/12/18 16:30 12/16/18 09:32 Humalog* SUBCUT 4 units ACHS DEBBIE Administration Protocol Levothyroxine Sodium 100 mcg 12/13/18 06:00 12/16/18 04:56 Synthroid Tab* PO 100 mcg DAILY@0600 DEBBIE Administration Magnesium Oxide 400 mg 12/12/18 21:00 12/16/18 09:25 Magox 400 Tab* PO 400 mg BID DEBBIE Administration Meclizine HCl 12.5 mg 12/12/18 14:00 12/16/18 05:00 Antivert Tab* PO 12.5 mg Q8HR DEBBIE Administration Nifedipine 30 mg 12/15/18 09:00 12/16/18 09:25 Procardia Xl Tab* PO 30 mg DAILY DEBBIE Administration Pantoprazole Sodium 40 mg 12/12/18 21:00 12/16/18 09:25 Protonix Tab* PO 40 mg BID DEBBIE Administration Prednisolone Acetate 1 drop 12/13/18 09:00 12/16/18 09:29 Pred Forte 1%* BOTH EYES 1 drop QAM DEBBIE Administration Pregabalin 25 mg 12/12/18 14:00 12/16/18 09:26 Lyrica Cap(*) PO 25 mg TID DEBBIE Administration Quetiapine Fumarate 100 mg 12/12/18 23:00 12/15/18 21:54 Seroquel Tab* PO 100 mg BEDTIME DEBBIE Administration Senna 2 tab 12/12/18 11:00 Senokot Tab* PO BEDTIME PRN CONSTIPATION Travoprost 1 drop 12/12/18 23:00 12/15/18 21:55 Travatan Z (Nf) BOTH EYES 1 drop BEDTIME DEBBIE Administration Vital Signs: Vital Signs Temp Pulse Resp BP Pulse Ox 97.8 F 59 19 122/54 92 12/16/18 04:03 12/16/18 04:03 12/16/18 09:26 12/16/18 04:03 12/16/18 08:00 Lab Results: Laboratory Results - last 24 hr 12/15/18 12/15/18 12/15/18 12:15 16:40 21:06 POC Glucose (mg/dL) 229 H 232 H 236 H 12/16/18 07:34 POC Glucose (mg/dL) 149 H Exam: GEN: no acute distress. alert and appropriate. LUNGS: Clear to auscultation bilaterally HEART: Regular rate and rhythm ABDOMEN: Soft, + bowel sounds, non-tender, non-distended EXTREMITIES: no edema NEUROLOGIC: Dysarthric. Left Facial droop. Left arm 3-4/5, LLE 4/5, Right side 5 /5. Sensation intact. Assessment/Plan: 1. 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 ASA/Plavix/Eliquis. Plavix for 20 days to end December 28 2. Diabetes: Continue Lantus/SSI. Lantus increased 12/16 to 28u. 3. Hypothyroid: Synthroid 4. Hyperlipidemia: Atorvastatin 5. DVT Prophylaxis: Eliquis 6. Dementia: Aricept 7. Advance Directives: Full code 8. Increased BUN/Cr: will follow labs. Holding Metformin 9. Estimated LOS: 12/29/18 10. Hypertension: restarted Procardia XL 30mg daily. Home dose is 60mg daily. 12/16/18 11:23
[2018-12-16] MEDS: Atorvastatin* 10 MG TAB PO SCH (17:07)
[2018-12-16] MEDS: PTO:Travoprost 0.004% (NF) OPHTH.SOLN BOTH EYES SCH (21:14)
[2018-12-16] MEDS: QUEtiapine TAB* 100 MG PO SCH (21:18)
[2018-12-16] MEDS: Cyclobenzaprine TAB* 10 MG PO PRN (22:44)
[2018-12-17] MEDS: Levothyroxine TAB* 100 MCG TAB PO SCH (05:16)
[2018-12-17] MEDS: Meclizine TAB* 12.5 MG PO SCH ×3 (05:16→21:14)
[2018-12-17] MEDS: Insulin GLARGINE(*) 1 UNITS UNIT SUBCUT SCH (09:16)
[2018-12-17] MEDS: Insulin LISPRO* 1 UNITS UNIT SUBCUT SCH ×4 (09:17→21:13)
[2018-12-17] MEDS: PTO:prednisoLONE 1% OPHTH.SUSP* 5 ML OPHTH.SUSP BOTH EYES SCH (09:19)
[2018-12-17] MEDS: Apixaban* 2.5 MG TAB PO SCH ×2 (09:20→20:20)
[2018-12-17] MEDS: Citalopram TAB* 20 MG PO SCH (09:20)
[2018-12-17] MEDS: Magnesium Oxide TAB* 400 MG PO SCH ×2 (09:20→20:20)
[2018-12-17] MEDS: Pregabalin CAP(*) 25 MG PO SCH ×3 (09:20→20:23)
[2018-12-17] MEDS: Aspirin EC TAB* 81 MG TAB.EC PO SCH (09:21)
[2018-12-17] MEDS: Donepezil TAB* 5 MG PO SCH (09:21)
[2018-12-17] MEDS: Clopidogrel TAB* 75 MG PO SCH (09:21)
[2018-12-17] MEDS: NIFEdipine ER TAB* 30 MG PO SCH (09:22)
[2018-12-17] MEDS: Pantoprazole TAB * 40 MG TAB PO SCH ×2 (09:22→20:23)
--- NOTE | 2018-12-17 10:16 | PN ---
Progress Note Date of Service: 12/17/18 Note: VIVIEN RAY was visited. Nursing and therapy notes read and reviewed. Has ongoing right anterior hip pain. She was seen by Dr. Landry on 12/11 on acute service and had a CT of the pelvis. He felt this was iliopsoas bursitis. Heat helps. She is declining pain meds at this time. Does best with position changes. No chest pain, shortness of breath or abdominal pain. Current Medications: Active Medications Generic Name Dose Route Start Last Admin Trade Name Freq PRN Reason Stop Dose Admin Acetaminophen 650 mg 12/12/18 11:00 12/16/18 19:25 Tylenol Tab* PO 650 mg Q6H PRN Administration FEVER/PAIN Apixaban 2.5 mg 12/12/18 21:00 12/17/18 09:20 Eliquis* PO 2.5 mg BID DEBBIE Administration Aspirin 81 mg 12/13/18 09:00 12/17/18 09:21 Aspirin Ec Tab* PO 81 mg DAILY DEBBIE Administration Atorvastatin Calcium 5 mg 12/13/18 17:00 12/16/18 17:07 Lipitor* PO 5 mg 1700 EDBBIE Administration Bisacodyl 10 mg 12/12/18 11:00 Dulcolax Supp* [place] DAILY PRN CONSTIPATION Citalopram Hydrobromide 20 mg 12/13/18 09:00 12/17/18 09:20 Celexa Tab* PO 20 mg DAILY DEBBIE Administration Clopidogrel Bisulfate 75 mg 12/13/18 09:00 12/17/18 09:21 Plavix Tab* PO 12/28/18 23:00 75 mg DAILY DEBBIE Administration Cyclobenzaprine HCl 10 mg 12/12/18 19:13 12/16/18 22:44 Flexeril Tab* PO 10 mg TID PRN Administration SPASMS Docusate Sodium 100 mg 12/16/18 08:47 Colace Cap* PO BID PRN CONSTIPATION Donepezil HCl 10 mg 12/13/18 09:00 12/17/18 09:21 Aricept Tab* PO 10 mg DAILY DEBBIE Administration Insulin Glargine 28 units 12/16/18 08:49 12/17/18 09:16 Lantus(*) SUBCUT 28 ml Q24H DEBBIE Administration Insulin Human Lispro 0 units 12/12/18 16:30 12/17/18 09:17 Humalog* SUBCUT 4 units ACHS DEBBIE Administration Protocol Levothyroxine Sodium 100 mcg 12/13/18 06:00 12/17/18 05:16 Synthroid Tab* PO 100 mcg DAILY@0600 DEBBIE Administration Magnesium Oxide 400 mg 12/12/18 21:00 12/17/18 09:20 Magox 400 Tab* PO 400 mg BID DEBBIE Administration Meclizine HCl 12.5 mg 12/12/18 14:00 12/17/18 05:16 Antivert Tab* PO 12.5 mg Q8HR DEBBIE Administration Nifedipine 30 mg 12/15/18 09:00 12/17/18 09:22 Procardia Xl Tab* PO 30 mg DAILY DEBBIE Administration Pantoprazole Sodium 40 mg 12/12/18 21:00 12/17/18 09:22 Protonix Tab* PO 40 mg BID DEBBIE Administration Prednisolone Acetate 1 drop 12/13/18 09:00 12/17/18 09:19 Pred Forte 1%* BOTH EYES 1 drop QAM DEBBIE Administration Pregabalin 25 mg 12/12/18 14:00 12/17/18 09:20 Lyrica Cap(*) PO 25 mg TID DEBBIE Administration Quetiapine Fumarate 100 mg 12/12/18 23:00 12/16/18 21:18 Seroquel Tab* PO 100 mg BEDTIME DEBBIE Administration Senna 2 tab 12/12/18 11:00 12/16/18 21:21 Senokot Tab* PO 2 tab BEDTIME PRN Administration CONSTIPATION Travoprost 1 drop 12/12/18 23:00 12/16/18 21:14 Travatan Z (Nf) BOTH EYES 1 drop BEDTIME DEBBIE Administration Vital Signs: Vital Signs Temp Pulse Resp BP Pulse Ox 97.7 F 62 19 126/59 93 12/17/18 05:09 12/17/18 05:09 12/17/18 09:20 12/17/18 05:09 12/17/18 05:09 Lab Results: Laboratory Results - last 24 hr 12/16/18 12/16/18 12/16/18 11:52 16:12 20:49 POC Glucose (mg/dL) 216 H 203 H 287 H 12/17/18 08:02 POC Glucose (mg/dL) 138 H Exam: GEN: no acute distress. alert and appropriate. LUNGS: Clear to auscultation bilaterally HEART: Regular rate and rhythm ABDOMEN: Soft, + bowel sounds, non-tender, non-distended EXTREMITIES: no edema. Tender at anterior hip to palpation. Also some milder gluteal tenderness. NEUROLOGIC: Dysarthric. Left Facial droop. Left arm 3-4/5, LLE 4/5, Right side 5 /5. Sensation intact. Assessment/Plan: 1. 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 ASA/Plavix/Eliquis. Plavix for 20 days to end December 28 2. Diabetes: Continue Lantus/SSI. Lantus increased 12/16 to 28u. 3. Hypothyroid: Synthroid 4. Hyperlipidemia: Atorvastatin 5. DVT Prophylaxis: Eliquis 6. Dementia: Aricept 7. Advance Directives: Full code 8. Increased BUN/Cr: will follow labs. Holding Metformin 9. Estimated LOS: 12/29/18 10. Hypertension: restarted Procardia XL 30mg daily with good effect. Home dose is 60mg daily. 11. Right iliopsoas bursitis: local care and pain meds prn. 12/17/18 10:15
[2018-12-17] MEDS: Atorvastatin* 10 MG TAB PO SCH (17:29)
[2018-12-17] MEDS: QUEtiapine TAB* 100 MG PO SCH (20:24)
[2018-12-17] MEDS: PTO:Travoprost 0.004% (NF) OPHTH.SOLN BOTH EYES SCH (20:25)
[2018-12-17] MEDS: Cyclobenzaprine TAB* 10 MG PO PRN (22:30)
[2018-12-18] MEDS: Acetaminophen TAB* 325 MG PO PRN ×2 (00:31→12:25)
[2018-12-18] MEDS: Levothyroxine TAB* 100 MCG TAB PO SCH (06:23)
[2018-12-18] MEDS: Meclizine TAB* 12.5 MG PO SCH ×3 (06:23→21:44)
[2018-12-18] MEDS: Cyclobenzaprine TAB* 10 MG PO PRN (06:23)
[2018-12-18] MEDS: Insulin LISPRO* 1 UNITS UNIT SUBCUT SCH ×4 (09:06→21:44)
[2018-12-18] MEDS: Aspirin EC TAB* 81 MG TAB.EC PO SCH (09:11)
[2018-12-18] MEDS: Magnesium Oxide TAB* 400 MG PO SCH ×2 (09:11→21:44)
[2018-12-18] MEDS: Clopidogrel TAB* 75 MG PO SCH (09:11)
[2018-12-18] MEDS: Pregabalin CAP(*) 25 MG PO SCH ×3 (09:11→21:43)
[2018-12-18] MEDS: Pantoprazole TAB * 40 MG TAB PO SCH ×2 (09:11→21:44)
[2018-12-18] MEDS: Apixaban* 2.5 MG TAB PO SCH ×2 (09:12→21:44)
[2018-12-18] MEDS: Citalopram TAB* 20 MG PO SCH (09:12)
[2018-12-18] MEDS: Donepezil TAB* 5 MG PO SCH (09:12)
[2018-12-18] MEDS: PTO:prednisoLONE 1% OPHTH.SUSP* 5 ML OPHTH.SUSP BOTH EYES SCH (09:13)
[2018-12-18] MEDS: NIFEdipine ER TAB* 30 MG PO SCH (09:13)
[2018-12-18] MEDS: Insulin GLARGINE(*) 1 UNITS UNIT SUBCUT SCH (09:15)
[2018-12-18] MEDS: Atorvastatin* 10 MG TAB PO SCH (17:08)
--- NOTE | 2018-12-18 18:06 | PN ---
Progress Note Date of Service: 12/18/18 Note: VIVIEN RAY was visited. Therapy notes read and reviewed. She is doing ok. She needs to go slow on eating or she can aspirate. Still with hip pain Current Medications: Active Medications Generic Name Dose Route Start Last Admin Trade Name Freq PRN Reason Stop Dose Admin Acetaminophen 650 mg 12/12/18 11:00 12/18/18 12:25 Tylenol Tab* PO 650 mg Q6H PRN Administration FEVER/PAIN Apixaban 2.5 mg 12/12/18 21:00 12/18/18 09:12 Eliquis* PO 2.5 mg BID DEBBIE Administration Aspirin 81 mg 12/13/18 09:00 12/18/18 09:11 Aspirin Ec Tab* PO 81 mg DAILY DEBBIE Administration Atorvastatin Calcium 5 mg 12/13/18 17:00 12/18/18 17:08 Lipitor* PO 5 mg 1700 DEBBIE Administration Bisacodyl 10 mg 12/12/18 11:00 Dulcolax Supp* [place] DAILY PRN CONSTIPATION Citalopram Hydrobromide 20 mg 12/13/18 09:00 12/18/18 09:12 Celexa Tab* PO 20 mg DAILY DEBBIE Administration Clopidogrel Bisulfate 75 mg 12/13/18 09:00 12/18/18 09:11 Plavix Tab* PO 12/28/18 23:00 75 mg DAILY DEBBIE Administration Cyclobenzaprine HCl 10 mg 12/12/18 19:13 12/18/18 06:23 Flexeril Tab* PO 10 mg TID PRN Administration SPASMS Docusate Sodium 100 mg 12/16/18 08:47 Colace Cap* PO BID PRN CONSTIPATION Donepezil HCl 10 mg 12/13/18 09:00 12/18/18 09:12 Aricept Tab* PO 10 mg DAILY DEBBIE Administration Insulin Glargine 28 units 12/16/18 08:49 12/18/18 09:15 Lantus(*) SUBCUT 28 ml Q24H DEBBIE Administration Insulin Human Lispro 0 units 12/12/18 16:30 12/18/18 17:08 Humalog* SUBCUT 12 units ACHS DEBBIE Administration Protocol Levothyroxine Sodium 100 mcg 12/13/18 06:00 12/18/18 06:23 Synthroid Tab* PO 100 mcg DAILY@0600 DEBBIE Administration Magnesium Oxide 400 mg 12/12/18 21:00 12/18/18 09:11 Magox 400 Tab* PO 400 mg BID DEBBIE Administration Meclizine HCl 12.5 mg 12/12/18 14:00 12/18/18 14:26 Antivert Tab* PO 12.5 mg Q8HR DEBBIE Administration Nifedipine 30 mg 12/15/18 09:00 12/18/18 09:13 Procardia Xl Tab* PO 30 mg DAILY DEBBIE Administration Pantoprazole Sodium 40 mg 12/12/18 21:00 12/18/18 09:11 Protonix Tab* PO 40 mg BID DEBBIE Administration Prednisolone Acetate 1 drop 12/13/18 09:00 12/18/18 09:13 Pred Forte 1%* BOTH EYES 1 drop QAM DEBBIE Administration Pregabalin 25 mg 12/12/18 14:00 12/18/18 14:26 Lyrica Cap(*) PO 25 mg TID DEBBIE Administration Quetiapine Fumarate 100 mg 12/12/18 23:00 12/17/18 20:24 Seroquel Tab* PO 100 mg BEDTIME DEBBIE Administration Senna 2 tab 12/12/18 11:00 12/16/18 21:21 Senokot Tab* PO 2 tab BEDTIME PRN Administration CONSTIPATION Travoprost 1 drop 12/12/18 23:00 12/17/18 20:25 Travatan Z (Nf) BOTH EYES 1 drop BEDTIME DEBBIE Administration Vital Signs: Vital Signs Temp Pulse Resp BP Pulse Ox 97.3 F 67 16 142/66 98 12/18/18 15:54 12/18/18 15:54 12/18/18 16:01 12/18/18 15:54 12/18/18 15:54 Lab Results: Laboratory Results - last 24 hr 12/17/18 12/18/18 12/18/18 20:27 07:48 11:58 POC Glucose (mg/dL) 240 H 128 H 256 H 12/18/18 16:35 POC Glucose (mg/dL) 245 H Exam: GENERAL: no acute distress. alert and appropriate. LUNGS: Clear to auscultation bilaterally HEART: Regular rate and rhythm ABDOMEN: Soft, + bowel sounds, non-tender, non-distended EXTREMITIES: no edema. Right hip tender NEUROLOGIC: Dysarthric. Left Facial droop. Left arm 3-4/5, LLE 4/5, Right side 5 /5. Sensation intact. Assessment/Plan: 1. 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 ASA/Plavix/Eliquis. Plavix for 20 days to end December 28 2. Diabetes: Continue Lantus/SSI. Lantus increased 12/16 to 28u. 3. Hypothyroid: Synthroid 4. Hyperlipidemia: Atorvastatin 5. DVT Prophylaxis: Eliquis 6. Dementia: Aricept 7. Advance Directives: Full code 8. Increased BUN/Cr: will follow labs. Holding Metformin 9. Estimated LOS: 12/29/18 10. Hypertension: restarted Procardia XL 30mg daily with good effect. May need to go back to home dose, 60mg daily. 11. Right iliopsoas bursitis: local care and pain meds prn. 12/18/18 18:07 12/18/18 18:07
[2018-12-18] MEDS: QUEtiapine TAB* 100 MG PO SCH (21:44)
[2018-12-18] MEDS: PTO:Travoprost 0.004% (NF) OPHTH.SOLN BOTH EYES SCH (21:47)
[2018-12-19] MEDS: Acetaminophen TAB* 325 MG PO PRN (05:42)
[2018-12-19] MEDS: Levothyroxine TAB* 100 MCG TAB PO SCH (05:42)
[2018-12-19] MEDS: Meclizine TAB* 12.5 MG PO SCH ×3 (05:42→22:07)
[2018-12-19] MEDS: Insulin LISPRO* 1 UNITS UNIT SUBCUT SCH ×5 (08:57→20:54)
[2018-12-19] MEDS: Insulin GLARGINE(*) 1 UNITS UNIT SUBCUT SCH (09:01)
[2018-12-19] MEDS: Apixaban* 2.5 MG TAB PO SCH ×2 (09:02→20:53)
[2018-12-19] MEDS: Aspirin EC TAB* 81 MG TAB.EC PO SCH (09:02)
[2018-12-19] MEDS: Donepezil TAB* 5 MG PO SCH (09:02)
[2018-12-19] MEDS: Citalopram TAB* 20 MG PO SCH (09:02)
[2018-12-19] MEDS: Clopidogrel TAB* 75 MG PO SCH (09:02)
[2018-12-19] MEDS: Magnesium Oxide TAB* 400 MG PO SCH ×2 (09:02→20:53)
[2018-12-19] MEDS: NIFEdipine ER TAB* 30 MG PO SCH (09:02)
[2018-12-19] MEDS: Pantoprazole TAB * 40 MG TAB PO SCH ×2 (09:03→20:53)
[2018-12-19] MEDS: Pregabalin CAP(*) 25 MG PO SCH ×3 (09:03→20:53)
[2018-12-19] MEDS: PTO:prednisoLONE 1% OPHTH.SUSP* 5 ML OPHTH.SUSP BOTH EYES SCH (09:04)
--- NOTE | 2018-12-19 12:37 | PMRUTEAM ---
PMRU: Team Meeting Current Status: Nursing: Current Status Skin Deviations [Bilateral Rash Buttocks] Skin Deviations [Chest] Other Skin Deviation Description [ sl reddened Bilateral Buttocks] Skin Deviation Description [ irritation s/p telemetry stickers Chest] Bladder Current Status incont at times. moderate amt of assistance needed . briefs in use Bowel Current Status incont at times. moderate amt of assistance needed . briefs in use Nutrition Current Status eats 100% of most meals Medication Current Status family assists with preparing medications Physical Therapy: Current Status Bed Mobility Assistance Supervision Transfer Mobility Assistance Supervision Transfer/Bed Mobility Rolling Walker Recommended Devices Ambulation Assistance Supervision Ambulation Assistive Devices Rolling Walker Number of Feet Patient 200 Ambulated Stairs Assistance Supervision Stairs Recommended Devices Two Rails Number of Stairs 10 Curb Not Tested Objective Comments lateral and posterior stepping in llbars, cues for posture and step length Occupational Therapy: Current Status Upper Body Dressing Min Assist Lower Body Dressing Min Assist Bathing Contact Guard Assist Toileting Supervision,Contact Guard Assist Toilet Transfer Supervision,Contact Guard Assist Shower Transfer Contact Guard Assist Eating Supervision Rec Therapy: Current Status Summary of Assessment and Pt. has enjoyed watching [employer] on TV and Clinical Impression playing R[employer] with t/w. Pt. has also enjoyed spending time with her when he visits. Treatment Goals Pt. will continue engaging in leisure while on the unit Treatment Plan Continue to provide RT services Social Work: Current Status Discharge Plan return home with home care svs and family support Potential for Family Training pt's is involved and supportive Anticipated Discharge Home Destination Discharge With [place] at home and family support Nutrition: Current Status Monitoring New admission today. Evaluation in progress. Goals: Occupational Therapy: Initial Goals Goals to be Completed in (Days 14 ) Upper Body Bathing Routine Independent Lower Body Bathing Routine Modified Independent with Upper Body Dressing Routine Independent Lower Body Dressing Routine Minimal Contact Assist Toilet Hygeine and Clothing Modified Independent with Management Routine Toilet Transfer Routine Modified Independent with Step-In Shower Transfer Minimal Contact Assist Routine Tub Transfer Routine Minimal Contact Assist Functional Transfers for ADL Modified Independent with Grooming Routine Independent Feeding Routine Independent Nursing: Goals Bladder Goal incont at times. moderate amt of assistance needed . briefs in use Bowel Goal incont at times. moderate amt of assistance needed . briefs in use Nutrition Goal eats 100% of most meals Medication Goal needs assistance with medications Nutrition: Goals Intervention Goals 1. adequate intake to support hydration and lean body mass without add'l wt gain 2. glycemic control within inpatient parameters; no s/sx hypo-hyperglycemia 3. maintain serum electrolytes WNL 4. regulation of bowel pattern; no c/o constipation (or diarrhea) Social Work: Goals Discharge Plan return home with home care svs and family support Potential for Family Training pt's is involved and supportive Anticipated Discharge Home Destination Discharge With [place] at home and family support Care Plan: Care Plan ADL's - Improve/Maintain Start: 12/12/18 14:35 Freq: DAILY Status: Active Target: Protocol: Activity Type Activity Date Activity User E-Sign Co-Sign Detail Recorded Client Recorded Date Recorded By Document 12/18/18 11:49 [id number] [id number] 12/18/18 11:49 [id number] 12/18/18 11:49 PMRU Outcome: ADL's/ADL Transfers Orders/Interventions Occupational Therapy Evaluation & Treatment Device Yes Patient to receive OT 5x/wk for 60-120 Therex min/day Self Care Management Group Therapy Neuromuscular ReEducation UE/LE ADL's with Assist Yes: min A ADL Transfers with Assist Yes: CGA for shower transfers, mod I for toilet transfers Toileting: Transfers,Clothing Management Yes: mod I ,Hygeine w/Assist Progression Toward Outcome/Goals Progressing Outcome/Goals Met Pt more fatigued today and needed increased assistance with LB dressing. Pt needed encouragement to participate. She did show improved sitting balance on shower bench compared to last week. DVT Prophylaxis- Improve/Maintain Start: 12/12/18 12:33 Freq: QSHIFT Status: Active Target: Protocol: Activity Type Activity Date Activity User E-Sign Co-Sign Detail Recorded Client Recorded Date Recorded By Document 12/19/18 03:50 [id number] 12/19/18 03:50 [id number] 12/19/18 03:50 PMRU Outcome: DVT Prophylaxis Outcome/Goals Remains Free of DVT Complies with DVT Prophylaxis /Treatment Demonstrates Knowledge of DVT Prevention/ Treatment TEDS Stockings on Every AM, Off at HS Progression Toward Outcome/Goals Progressing Discharge Planning - Improve/Maintain Start: 12/12/18 12:33 Freq: DAILY Status: Active Target: Protocol: Activity Type Activity Date Activity User E-Sign Co-Sign Detail Recorded Client Recorded Date Recorded By Document 12/19/18 03:00 [id number] [id number] 12/19/18 03:51 [id number] 12/19/18 03:00 PMRU Outcome: Discharge Planning Update Patient Family No Outcome/Goals Demonstrates Understanding of Discharge Plan Progression Toward Outcome/Goals Progressing Education-Improve/Maintain Start: 12/12/18 12:33 Freq: QSHIFT Status: Active Target: Protocol: Activity Type Activity Date Activity User E-Sign Co-Sign Detail Recorded Client Recorded Date Recorded By Document 12/19/18 03:50 [id number] [email or web address] 12/19/18 03:50 [id number] 12/19/18 03:50 PMRU Outcome: Education Outcome/Goals Encourage Questions Progression Toward Outcome/Goals Progressing /GI-Improve/Maintain Start: 12/12/18 12:33 Freq: QSHIFT Status: Active Target: Protocol: Activity Type Activity Date Activity User E-Sign Co-Sign Detail Recorded Client Recorded Date Recorded By Document 12/19/18 03:50 [id number] [id number] 12/19/18 03:50 [id number] 12/19/18 03:50 PMRU Outcome: Genitourinary/ Gastrointestinal Genitourinary- Outcome/Goals Remain Free of Hospital- Acquired UTI Gastrointestinal-Outcome/Goals Maintain/ Achieve Bowel Regularity in Accordance with Pt's Baseline Prevent Constipation Laxatives as Ordered Progression Toward Outcome/Goals - Progressing Progression Toward Outcome/Goals - GI Progressing Medication Administration Start: 12/12/18 12:33 Freq: QSHIFT Status: Active Target: Protocol: Activity Type Activity Date Activity User E-Sign Co-Sign Detail Recorded Client Recorded Date Recorded By Document 12/19/18 03:50 [id number] [email or web address] 12/19/18 03:50 [id number] 12/19/18 03:50 PMRU Outcome: Medication Administration Assess Patient Knowledge/Teach Med Yes Education for all Meds Outcome/Goals Patient Independent with Medication Administration at Home Demonstrates Understanding Progression Towards Outcome/Goals Progressing Is Patient Going Home on Lovenox? No Metabolic Status- Improve/Maintain Start: 12/12/18 12:33 Freq: QSHIFT Status: Active Target: Protocol: Activity Type Activity Date Activity User E-Sign Co-Sign Detail Recorded Client Recorded Date Recorded By Document 12/19/18 03:50 [id number] [email or web address] 12/19/18 03:50 [id number] 12/19/18 03:50 PMRU Outcome: Metabolic Status Have Fingersticks Been Ordered Yes Fingerstick Order Frequency AC & HS Outcome/Goals Maintain/ Improve Metabolic Status Demonstrate Knowledge of Prevention/ Treatment of Metabolic Imbalances Progression Toward Outcome/Goals Progressing Neurological- Improve/Maintain Start: 12/12/18 12:33 Freq: QSHIFT Status: Active Target: Protocol: Activity Type Activity Date Activity User E-Sign Co-Sign Detail Recorded Client Recorded Date Recorded By Document 12/19/18 03:50 [id number] 12/19/18 03:50 [id number] 12/19/18 03:50 PMRU Outcome: Neurological Weakness/Aphasia Weakness Left Side Outcome/Goals Improve Neurological Status Prevent Avoidable Neurological Decline Demonstrate Knowledge of Prevention/Tx of Neuro Disorders/ Complication Maintain/ Improve Strength/ROM Progression Toward Outcome/Goals Progressing Pain/Comfort- Improve/Maintain Start: 12/12/18 12:33 Freq: QSHIFT Status: Active Target: Protocol: Activity Type Activity Date Activity User E-Sign Co-Sign Detail Recorded Client Recorded Date Recorded By Document 12/19/18 03:50 [id number] 12/19/18 03:50 [id number] 12/19/18 03:50 PMRU Outcome: Pain/Comfort Outcome/Goals Demonstrates Knowledge and Use of Available Comfort Measures Achieves Acceptable Comfort/Pain Level as Determined by Patient/Condit Maintain Comfort Level Allowing Patient to Fully Participate in Rehab Progression Toward Outcome/Goals Progressing Safety- Improve/Maintain Start: 12/12/18 12:33 Freq: QSHIFT Status: Active Target: Protocol: Activity Type Activity Date Activity User E-Sign Co-Sign Detail Recorded Client Recorded Date Recorded By Document 12/19/18 03:50 [id number] 12/19/18 03:50 [id number] 12/19/18 03:50 PMRU Outcome: Safety Outcome/Goals Remain Free of Injury or Harm Cooperates with Safety Measures for Least Restrictive Environment Prevent Falls/ Injury Progression Toward Outcome/Goals Progressing Outcome/Goals Met Comment BA armed Medicine Note: Length of Stay: 3 days Anticipated Discharge Destination: Home Tentative Discharge Date: 12/22/18 Discharged to: Home
[2018-12-19] MEDS: Atorvastatin* 10 MG TAB PO SCH (17:13)
--- NOTE | 2018-12-19 17:38 | PN ---
Progress Note Date of Service: 12/19/18 Note: VIVIEN RAY was visited. Therapy notes read and reviewed. She was discussed in interdisciplinary team rounds. She is doing much better. Her sugars are more stable. Current Medications: Active Medications Generic Name Dose Route Start Last Admin Trade Name Freq PRN Reason Stop Dose Admin Acetaminophen 650 mg 12/12/18 11:00 12/19/18 05:42 Tylenol Tab* PO 650 mg Q6H PRN Administration FEVER/PAIN Apixaban 2.5 mg 12/12/18 21:00 12/19/18 09:02 Eliquis* PO 2.5 mg BID DEBBIE Administration Aspirin 81 mg 12/13/18 09:00 12/19/18 09:02 Aspirin Ec Tab* PO 81 mg DAILY DEBBIE Administration Atorvastatin Calcium 5 mg 12/13/18 17:00 12/19/18 17:13 Lipitor* PO 5 mg 1700 DEBBIE Administration Bisacodyl 10 mg 12/12/18 11:00 Dulcolax Supp* [place] DAILY PRN CONSTIPATION Citalopram Hydrobromide 20 mg 12/13/18 09:00 12/19/18 09:02 Celexa Tab* PO 20 mg DAILY DEBBIE Administration Clopidogrel Bisulfate 75 mg 12/13/18 09:00 12/19/18 09:02 Plavix Tab* PO 12/28/18 23:00 75 mg DAILY DEBBIE Administration Cyclobenzaprine HCl 10 mg 12/12/18 19:13 12/18/18 06:23 Flexeril Tab* PO 10 mg TID PRN Administration SPASMS Docusate Sodium 100 mg 12/16/18 08:47 12/19/18 09:16 Colace Cap* PO 100 mg BID PRN Administration CONSTIPATION Donepezil HCl 10 mg 12/13/18 09:00 12/19/18 09:02 Aricept Tab* PO 10 mg DAILY DEBBIE Administration Insulin Glargine 28 units 12/16/18 08:49 12/19/18 09:01 Lantus(*) SUBCUT 28 units Q24H DEBBIE Administration Insulin Human Lispro 0 units 12/12/18 16:30 12/19/18 17:13 Humalog* SUBCUT 4 units ACHS DEBBIE Administration Protocol Levothyroxine Sodium 100 mcg 12/13/18 06:00 12/19/18 05:42 Synthroid Tab* PO 100 mcg DAILY@0600 DEBBIE Administration Magnesium Oxide 400 mg 12/12/18 21:00 12/19/18 09:02 Magox 400 Tab* PO 400 mg BID DEBBIE Administration Meclizine HCl 12.5 mg 12/12/18 14:00 12/19/18 14:21 Antivert Tab* PO 12.5 mg Q8HR DEBBIE Administration Nifedipine 30 mg 12/15/18 09:00 12/19/18 09:02 Procardia Xl Tab* PO 30 mg DAILY DEBBIE Administration Pantoprazole Sodium 40 mg 12/12/18 21:00 12/19/18 09:03 Protonix Tab* PO 40 mg BID DEBBIE Administration Prednisolone Acetate 1 drop 12/13/18 09:00 12/19/18 09:04 Pred Forte 1%* BOTH EYES 1 drop QAM DEBBIE Administration Pregabalin 25 mg 12/12/18 14:00 12/19/18 14:21 Lyrica Cap(*) PO 25 mg TID DEBBIE Administration Quetiapine Fumarate 100 mg 12/12/18 23:00 12/18/18 21:44 Seroquel Tab* PO 100 mg BEDTIME DEBBIE Administration Senna 2 tab 12/12/18 11:00 12/16/18 21:21 Senokot Tab* PO 2 tab BEDTIME PRN Administration CONSTIPATION Travoprost 1 drop 12/12/18 23:00 12/18/18 21:47 Travatan Z (Nf) BOTH EYES 1 drop BEDTIME DEBBIE Administration Vital Signs: Vital Signs Temp Pulse Resp BP Pulse Ox 97.8 F 69 18 153/69 98 12/19/18 16:00 12/19/18 16:00 12/19/18 17:23 12/19/18 16:00 12/19/18 16:00 Lab Results: Laboratory Results - last 24 hr 12/18/18 12/19/18 12/19/18 21:20 07:48 12:03 POC Glucose (mg/dL) 179 H 141 H 224 H 12/19/18 16:41 POC Glucose (mg/dL) 133 H Exam: GENERAL: no acute distress. alert and appropriate. LUNGS: Clear to auscultation bilaterally HEART: Regular rate and rhythm ABDOMEN: Soft, + bowel sounds, non-tender, non-distended EXTREMITIES: no edema. Right hip tender NEUROLOGIC: Dysarthric. Left Facial droop. Left arm 3-4/5, LLE 4/5, Right side 5 /5. Sensation intact. Assessment/Plan: 1. 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 ASA/Plavix/Eliquis. Plavix for 20 days to end December 28 2. Diabetes: Continue Lantus/SSI. Lantus increased 12/16 to 28u. 3. Hypothyroid: Synthroid 4. Hyperlipidemia: Atorvastatin 5. DVT Prophylaxis: Eliquis 6. Dementia: Aricept 7. Advance Directives: Full code 8. Increased BUN/Cr: will follow labs. Holding Metformin 9. Estimated LOS: 12/29/18 10. Hypertension: restarted Procardia XL 30mg daily with good effect. May need to go back to home dose, 60mg daily. 11. Right iliopsoas bursitis: local care and pain meds prn. 12/19/18 17:38
[2018-12-19] MEDS: QUEtiapine TAB* 100 MG PO SCH (20:53)
[2018-12-19] MEDS: PTO:Travoprost 0.004% (NF) OPHTH.SOLN BOTH EYES SCH (20:54)
[2018-12-20] MEDS: Cyclobenzaprine TAB* 10 MG PO PRN ×2 (00:20→20:12)
[2018-12-20] MEDS: Acetaminophen TAB* 325 MG PO PRN ×2 (00:20→20:10)
[2018-12-20 05:08] LABS: ABS Basophils 0.1 10^3/ul (0-0.2); ABS Eosinophils 0.4 10^3/ul (0-0.6); ABS Lymphocytes 3.3 10^3/ul (1.0-4.8); ABS Monocytes 0.7 10^3/ul (0-0.8); ABS Neutrophils 4.3 10^3/ul (1.5-7.7); ABS Nucleated RBC 0 10^3/ul; Eosinophil % 4.5 %; Hematocrit 35 % (33-41); Hemoglobin 11.5 g/dL (12.0-16.0); Lymphocyte % 37.4 %; Mean Corpuscular HGB Conc 33 g/dL (31-36); Mean Corpuscular Hemoglobin 29 pg (27-31); Mean Corpuscular Volume 87 fL (80-97); Mean Platelet Volume 8.6 fL (7.4-10.4); Nucleated Red Blood Cells % 0; Platelet Count 177 10^3/uL (150-450); Red Blood Count 4.03 10^6 /uL (3.70-4.87); Red Cell Distribution Width 14 % (10.5-15); White Blood Count 8.8 10^3/uL (3.5-10.8)
[2018-12-20] MEDS: Meclizine TAB* 12.5 MG PO SCH ×3 (05:11→20:55)
[2018-12-20] MEDS: Levothyroxine TAB* 100 MCG TAB PO SCH (05:12)
[2018-12-20 05:24] LABS: Albumin 3.4 g/dL (3.2-5.2); Albumin/Globulin Ratio 1.3 (1-3); BUN/Creatinine Ratio 16.8 (8-20); Calcium 9.3 mg/dL (8.6-10.3); EGFR African American 48.4 (>60); Globulin 2.7 g/dL (2-4); Potassium 4.2 mmol/L (3.5-5.0); Total Bilirubin 0.4 mg/dL (0.2-1.0); Total Protein 6.1 g/dL (6.4-8.9)
[2018-12-20] MEDS: Insulin GLARGINE(*) 1 UNITS UNIT SUBCUT SCH (10:02)
[2018-12-20] MEDS: Insulin LISPRO* 1 UNITS UNIT SUBCUT SCH ×4 (10:02→20:55)
[2018-12-20] MEDS: Apixaban* 2.5 MG TAB PO SCH ×2 (10:03→20:13)
[2018-12-20] MEDS: Citalopram TAB* 20 MG PO SCH (10:04)
[2018-12-20] MEDS: Donepezil TAB* 5 MG PO SCH (10:04)
[2018-12-20] MEDS: Clopidogrel TAB* 75 MG PO SCH (10:04)
[2018-12-20] MEDS: Aspirin EC TAB* 81 MG TAB.EC PO SCH (10:04)
[2018-12-20] MEDS: Pantoprazole TAB * 40 MG TAB PO SCH ×2 (10:05→20:13)
[2018-12-20] MEDS: Magnesium Oxide TAB* 400 MG PO SCH ×2 (10:05→20:12)
[2018-12-20] MEDS: NIFEdipine ER TAB* 30 MG PO SCH (10:05)
[2018-12-20] MEDS: Pregabalin CAP(*) 25 MG PO SCH ×3 (10:05→20:10)
[2018-12-20] MEDS: Atorvastatin* 10 MG TAB PO SCH (17:44)
[2018-12-20] MEDS: QUEtiapine TAB* 100 MG PO SCH (20:12)
[2018-12-20] MEDS: PTO:Travoprost 0.004% (NF) OPHTH.SOLN BOTH EYES SCH (20:23)
--- NOTE | 2018-12-20 21:45 | PN ---
Progress Note Date of Service: 12/20/18 Note: VIVIEN RAY was visited. Therapy notes read and reviewed. She is ready for discharge. Her Cr is still a little high to restart metformin but will restart Glipizide. On SSI and Lantus Current Medications: Active Medications Generic Name Dose Route Start Last Admin Trade Name Freq PRN Reason Stop Dose Admin Acetaminophen 650 mg 12/12/18 11:00 12/20/18 20:10 Tylenol Tab* PO 650 mg Q6H PRN Administration FEVER/PAIN Apixaban 2.5 mg 12/12/18 21:00 12/20/18 20:13 Eliquis* PO 2.5 mg BID DEBBIE Administration Aspirin 81 mg 12/13/18 09:00 12/20/18 10:04 Aspirin Ec Tab* PO 81 mg DAILY DEBBIE Administration Atorvastatin Calcium 5 mg 12/13/18 17:00 12/20/18 17:44 Lipitor* PO 5 mg 1700 DEBBIE Administration Bisacodyl 10 mg 12/12/18 11:00 Dulcolax Supp* [place] DAILY PRN CONSTIPATION Citalopram Hydrobromide 20 mg 12/13/18 09:00 12/20/18 10:04 Celexa Tab* PO 20 mg DAILY DEBBIE Administration Clopidogrel Bisulfate 75 mg 12/13/18 09:00 12/20/18 10:04 Plavix Tab* PO 12/28/18 23:00 75 mg DAILY DEBBIE Administration Cyclobenzaprine HCl 10 mg 12/12/18 19:13 12/20/18 20:12 Flexeril Tab* PO 10 mg TID PRN Administration SPASMS Docusate Sodium 100 mg 12/16/18 08:47 12/19/18 09:16 Colace Cap* PO 100 mg BID PRN Administration CONSTIPATION Donepezil HCl 10 mg 12/13/18 09:00 12/20/18 10:04 Aricept Tab* PO 10 mg DAILY DEBBIE Administration Glipizide 2.5 mg 12/21/18 09:00 Glucotrol Xl* PO DAILY DEBBIE Insulin Glargine 28 units 12/16/18 08:49 12/20/18 10:02 Lantus(*) SUBCUT 28 units Q24H DEBBIE Administration Insulin Human Lispro 0 units 12/12/18 16:30 12/20/18 20:55 Humalog* SUBCUT 12 units ACHS DEBBIE Administration Protocol Levothyroxine Sodium 100 mcg 12/13/18 06:00 12/20/18 05:12 Synthroid Tab* PO 100 mcg DAILY@0600 DEBBIE Administration Magnesium Oxide 400 mg 12/12/18 21:00 12/20/18 20:12 Magox 400 Tab* PO 400 mg BID DEBBIE Administration Meclizine HCl 12.5 mg 12/12/18 14:00 12/20/18 20:55 Antivert Tab* PO 12.5 mg Q8HR DEBBIE Administration Nifedipine 30 mg 12/15/18 09:00 12/20/18 10:05 Procardia Xl Tab* PO 30 mg DAILY DEBBIE Administration Pantoprazole Sodium 40 mg 12/12/18 21:00 12/20/18 20:13 Protonix Tab* PO 40 mg BID DEBBIE Administration Prednisolone Acetate 1 drop 12/21/18 09:00 Pred Forte 1%* BOTH EYES DAILY DEBBIE Pregabalin 25 mg 12/12/18 14:00 12/20/18 20:10 Lyrica Cap(*) PO 25 mg TID DEBBIE Administration Quetiapine Fumarate 100 mg 12/12/18 23:00 12/20/18 20:12 Seroquel Tab* PO 100 mg BEDTIME DEBBIE Administration Senna 2 tab 12/12/18 11:00 12/16/18 21:21 Senokot Tab* PO 2 tab BEDTIME PRN Administration CONSTIPATION Travoprost 1 drop 12/12/18 23:00 12/20/18 20:23 Travatan Z (Nf) BOTH EYES 1 drop BEDTIME DEBBIE Administration Vital Signs: Vital Signs Temp Pulse Resp BP Pulse Ox 98.2 F 70 18 152/68 97 12/20/18 15:45 12/20/18 15:45 12/20/18 20:12 12/20/18 15:45 12/20/18 15:45 Lab Results: Laboratory Results - last 24 hr 12/20/18 12/20/18 12/20/18 04:49 04:49 07:20 WBC 8.8 RBC 4.03 Hgb 11.5 L Hct 35 MCV 87 MCH 29 MCHC 33 RDW 14 Plt Count 177 MPV 8.6 Neut % (Auto) 49.3 Lymph % (Auto) 37.4 [place] % (Auto) 7.8 Eos % (Auto) 4.5 Baso % (Auto) 1.0 Absolute Neuts (auto) 4.3 Absolute Lymphs (auto) 3.3 Absolute Monos (auto) 0.7 Absolute Eos (auto) 0.4 Absolute Basos (auto) 0.1 Absolute Nucleated RBC 0 Nucleated RBC % 0 Sodium 140 Potassium 4.2 Chloride 105 Carbon Dioxide 30 Anion Gap 5 BUN 22 Creatinine 1.31 H Est GFR ( Amer) 48.4 Est GFR (Non-Af Amer) 40.0 BUN/Creatinine Ratio 16.8 Glucose 144 H POC Glucose (mg/dL) 142 H Calcium 9.3 Total Bilirubin 0.40 AST 13 ALT 10 Alkaline Phosphatase 71 Total Protein 6.1 L Albumin 3.4 Globulin 2.7 Albumin/Globulin Ratio 1.3 12/20/18 12/20/18 12/20/18 12:03 16:49 20:24 WBC RBC Hgb Hct MCV MCH MCHC RDW Plt Count MPV Neut % (Auto) Lymph % (Auto) [place] % (Auto) Eos % (Auto) Baso % (Auto) Absolute Neuts (auto) Absolute Lymphs (auto) Absolute Monos (auto) Absolute Eos (auto) Absolute Basos (auto) Absolute Nucleated RBC Nucleated RBC % Sodium Potassium Chloride Carbon Dioxide Anion Gap BUN Creatinine Est GFR ( Amer) Est GFR (Non-Af Amer) BUN/Creatinine Ratio Glucose POC Glucose (mg/dL) 228 H 178 H 203 H Calcium Total Bilirubin AST ALT Alkaline Phosphatase Total Protein Albumin Globulin Albumin/Globulin Ratio Exam: GENERAL: no acute distress. alert and appropriate. LUNGS: Clear to auscultation bilaterally HEART: Regular rate and rhythm ABDOMEN: Soft, + bowel sounds, non-tender, non-distended EXTREMITIES: no edema. Right hip tender NEUROLOGIC: Dysarthric. Left Facial droop. Left arm 3-4/5, LLE 4/5, Right side 5 /5. Sensation intact. Assessment/Plan: 1. 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 ASA/Plavix/Eliquis. Plavix for 20 days to end December 28 2. Diabetes: Continue Lantus/SSI. Lantus 28u. 3. Hypothyroid: Synthroid 4. Hyperlipidemia: Atorvastatin 5. DVT Prophylaxis: Eliquis 6. Dementia: Aricept 7. Advance Directives: Full code 8. Increased BUN/Cr: will follow labs. Holding Metformin, restart Glipizide 9. Hypertension: restarted Procardia XL 30mg daily with good effect. May need to go back to home dose, 60mg daily. 10. Right iliopsoas bursitis: local care and pain meds prn. 12/20/18 21:46 12/20/18 21:46
[2018-12-20] MEDS ORDERED: Analgesic BALM* 114 GM TOPICAL ONE (22:27)
[2018-12-21] MEDS: Meclizine TAB* 12.5 MG PO SCH ×2 (05:45→13:58)
[2018-12-21] MEDS: Levothyroxine TAB* 100 MCG TAB PO SCH (05:45)
[2018-12-21 06:19] VITALS: BP 144/61
[2018-12-21] MEDS ORDERED: glipiZIDE TAB.XL* 2.5 MG PO SCH (09:00)
[2018-12-21] MEDS ORDERED: prednisoLONE 1% OPHTH.SUSP* 5 ML OPHTH.SUSP BOTH EYES SCH (09:00)
[2018-12-21] MEDS ORDERED: NIFEdipine ER TAB* 60 MG PO SCH (09:00)
[2018-12-21] MEDS: Donepezil TAB* 5 MG PO SCH (09:13)
[2018-12-21] MEDS: Apixaban* 2.5 MG TAB PO SCH (09:13)
[2018-12-21] MEDS: Magnesium Oxide TAB* 400 MG PO SCH (09:13)
[2018-12-21] MEDS: Clopidogrel TAB* 75 MG PO SCH (09:13)
[2018-12-21] MEDS: Citalopram TAB* 20 MG PO SCH (09:13)
[2018-12-21] MEDS: Aspirin EC TAB* 81 MG TAB.EC PO SCH (09:13)
[2018-12-21] MEDS: Pregabalin CAP(*) 25 MG PO SCH ×2 (09:14→13:57)
[2018-12-21] MEDS: Pantoprazole TAB * 40 MG TAB PO SCH (09:14)
[2018-12-21] MEDS: Insulin GLARGINE(*) 1 UNITS UNIT SUBCUT SCH (09:29)
[2018-12-21] MEDS: Insulin LISPRO* 1 UNITS UNIT SUBCUT SCH ×2 (09:37→13:58)
== END 2018-12-21 13:30 | disposition home health service (06) | DRG 57 ==
LOC: PMRU 09:06
PROVIDERS: ADMIT Physical Medicine & Rehabilitation; ATTEND Physical Medicine & Rehabilitation
PROC: F07Z5ZZ Bed Mobility Treatment (ICD-10-PCS; principal; 2018-12-12)
PROC: F07Z9ZZ Gait Training/Functional Ambulation Treatment (ICD-10-PCS; 2018-12-12)
PROC: F07Z8ZZ Transfer Training Treatment (ICD-10-PCS; 2018-12-12)
PROC: F08Z0ZZ Bathing/Showering Techniques Treatment (ICD-10-PCS; 2018-12-12)
PROC: F08Z1ZZ Dressing Techniques Treatment (ICD-10-PCS; 2018-12-12)
PROC: F08Z3ZZ Feeding/Eating Treatment (ICD-10-PCS; 2018-12-12)
DX: I69.322 Dysarthria following cerebral infarction (principal); I69.392 Facial weakness following cerebral infarction; E11.65 Type 2 diabetes mellitus with hyperglycemia; E03.9 Hypothyroidism, unspecified; E78.5 Hyperlipidemia, unspecified; F03.90 Unspecified dementia, unspecified severity, without behavioral disturbance, psychotic disturbance, mood disturbance, and anxiety; I10 Essential (primary) hypertension; M71.551 Other bursitis, not elsewhere classified, right hip; G47.30 Sleep apnea, unspecified; F32.9 Major depressive disorder, single episode, unspecified; Z99.89 Dependence on other enabling machines and devices; Z86.718 Personal history of other venous thrombosis and embolism; Z79.01 Long term (current) use of anticoagulants; Z86.711 Personal history of pulmonary embolism; Z79.84 Long term (current) use of oral hypoglycemic drugs; Z79.82 Long term (current) use of aspirin; Z79.4 Long term (current) use of insulin; Z79.899 Other long term (current) drug therapy; Z88.1 Allergy status to other antibiotic agents; Z88.5 Allergy status to narcotic agent; Z88.0 Allergy status to penicillin; Z88.8 Allergy status to other drugs, medicaments and biological substances; Z87.891 Personal history of nicotine dependence
CPT/HCPCS: 36415; 80053; 82947; 85025; A9270-GY; G0515-GO; J1642

== ENCOUNTER 2022-06-11 05:37 | Observation (INO) ==
[2022-06-11 06:11] LABS: ABS Basophils 0.1 10^3/ul (0-0.2); ABS Eosinophils 0.3 10^3/ul (0-0.6); ABS Lymphocytes 2.8 10^3/ul (1.0-4.8); ABS Monocytes 0.7 10^3/ul (0-0.8); ABS Neutrophils 7.8 10^3/ul (1.5-7.7); Eosinophil % 2.3 %; Hematocrit 40 % (35-47); Hemoglobin 12.9 g/dL (12.0-16.0); Lymphocyte % 23.8 %; Mean Corpuscular HGB Conc 32 g/dL (31-36); Mean Corpuscular Hemoglobin 28 pg (27-31); Mean Corpuscular Volume 88 fL (80-97); Mean Platelet Volume 7.8 fL (7.4-10.4); Platelet Count 296 10^3/uL (150-450); Red Blood Count 4.56 10^6 /uL (3.70-4.87); Red Cell Distribution Width 16 % (10-15); White Blood Count 11.6 10^3/uL (3.5-10.8)
[2022-06-11 06:22] LABS: Activated Partial Thrombo Time 41.5 seconds (26.0-38.0); INR 1.13 (0.89-1.11)
[2022-06-11 07:14] LABS: Albumin/Globulin Ratio 1.4 (1-3); C Reactive Protein 6.41 mg/L (<8.01); Calcium 10.2 mg/dL (8.6-10.3); Globulin 2.8 g/dL (2-4); Potassium 3.7 mmol/L (3.5-5.0); Total Bilirubin 0.3 mg/dL (0.2-1.0); Total Protein 6.8 g/dL (6.4-8.9); eGFR CKD-EPI 40.6 (>60)
[2022-06-11] MEDS ORDERED: Dextrose 50% Syringe 50 ml 25 GM/50 ML SYRINGE IV PUSH PRN (10:55)
[2022-06-11 12:13] LABS: High Sensitivity Troponin 1 Hr 13 pg/mL (<15)
[2022-06-11 12:21] LABS: Urine Appearance Cloudy; Urine Bilirubin Negative (Negative); Urine Blood Negative (Negative); Urine Color Yellow; Urine Glucose Negative (Negative); Urine Ketones Negative (Negative); Urine Nitrite Negative (Negative); Urine Protein 2+(100 mg/dL) (Negative); Urine Specific Gravity 1.009 (1.002-1.030); Urine Urobilinogen Negative (Negative)
[2022-06-11 12:41] LABS: Urine Bacteria 2+ (Absent); Urine Red Blood Cell Trace(0-2/hpf) (Absent); Urine Squamous Epithelial Cell Present (Absent); Urine White Blood Cell 3+(>20/hpf) (Absent)
[2022-06-11] MEDS ORDERED: Latanoprost 0.005% 2.5 ml BTL BOTH EYES SCH (21:00)
[2022-06-12 06:40] LABS: ABS Basophils 0.1 10^3/ul (0-0.2); ABS Eosinophils 0.4 10^3/ul (0-0.6); ABS Lymphocytes 3.7 10^3/ul (1.0-4.8); Eosinophil % 3.5 %; Hematocrit 36 % (35-47); Hemoglobin 11.7 g/dL (12.0-16.0); Lymphocyte % 30.3 %; Mean Corpuscular HGB Conc 33 g/dL (31-36); Mean Corpuscular Hemoglobin 28 pg (27-31); Mean Corpuscular Volume 87 fL (80-97); Mean Platelet Volume 8.1 fL (7.4-10.4); Platelet Count 276 10^3/uL (150-450); Red Blood Count 4.14 10^6 /uL (3.70-4.87); Red Cell Distribution Width 15 % (10-15); White Blood Count 12.2 10^3/uL (3.5-10.8)
[2022-06-12 06:56] LABS: C Reactive Protein 4.67 mg/L (<8.01); Calcium 9.5 mg/dL (8.6-10.3); Potassium 4.4 mmol/L (3.5-5.0); eGFR CKD-EPI 30.6 (>60)
[2022-06-12] MEDS ORDERED: Aspirin EC 81 mg TAB.EC (enteric coated) PO SCH (09:00)
[2022-06-12] MEDS ORDERED: prednisoLONE 1% OPHTH.SUSP 5 ML OPHTH.SUSP BOTH EYES SCH (09:00)
[2022-06-12] MEDS ORDERED: NS 0.9% 500 ml BAG 500 ML IV ONE (13:59)
[2022-06-12 15:04] VITALS: BP 138/76
== END 2022-06-12 17:05 | disposition home or self-care (01) ==
LOC: ED 05:37 → EDHOLD 05:37 → MED 14:24
PROVIDERS: ADMIT Student in an Organized Health Care Education/Training Program; ATTEND Student in an Organized Health Care Education/Training Program